=== PATIENT | male | born 1935 | race Caucasian/White ===

== ENCOUNTER 2020-10-16 13:23 | Outpatient (REF) | payer SELFPAY | END 2020-10-16 13:24 | disposition home or self-care (01) | LOC: HO.HAP 13:23 | PROVIDERS: Visit Provider Internal Medicine | DX: Z46.1 Encounter for fitting and adjustment of hearing aid (principal) | CPT/HCPCS: V5267 ==

== ENCOUNTER 2021-04-29 10:11 | Emergency (ER) | payer MEDICARE, OTHER, SELFPAY ==
--- NOTE | ~2021-04-29 | CT_ITS ---
EXAMINATION: CT ABDOMEN AND PELVIS WITH CONTRAST CLINICAL INFORMATION: Colitis COMPARISON: CT abdomen and pelvis 08/01/2020 TECHNIQUE: Multidetector volumetric images were obtained from the superior aspect of the liver through the pubic symphysis following administration 85 mL of Omnipaque 350 intravenous contrast. Sagittal and coronal reformatted images were obtained on the technologist's workstation. Oral contrast: No This CT examination was performed using dose optimization techniques as appropriate, variously including the following: *Automated exposure control *Adjustment of mA and/or kV according to patient size (this includes techniques or standardized protocols for targeted exams where dose is matched to indication/reason for exam; i.e. extremities or head) *Use of iterative reconstruction technique DLP: 761 mGy-cm FINDINGS: LUNG BASES: Minimal atelectatic changes as seen in the lateral basal segments of both lower lobes. The heart size is normal. There are coronary artery calcifications present. LIVER, GALLBLADDER, AND BILIARY TREE: The liver is normal in size, shape, and attenuation. No focal hepatic lesion or biliary ductal dilatation is present. The gallbladder is unremarkable with no evidence of radiopaque gallstones, gallbladder wall thickening, or obvious pericholecystic inflammatory changes. PANCREAS: Unremarkable. SPLEEN: Unremarkable. ADRENAL GLANDS: Unremarkable. KIDNEYS AND URETERS: The kidneys are normal in size, shape, and attenuation. No hydronephrosis, hydroureter, or calculi seen. There is mild bilateral perinephric stranding there are bilateral cortical renal cysts. The largest in lower pole measures 1.9 cm. There is an extrarenal right kidney pelvis. BLADDER: Unremarkable. GASTROINTESTINAL TRACT: There is diffuse colonic diverticulosis most prominent in the sigmoid colon region. There is mild mural thickening of the sigmoid and descending colon but no pericolic fat stranding seen to suspect diverticulitis. Mural thickening of the ascending colon could be secondary to nonspecific colitis. The small bowel loops are normal caliber. The appendix is normal caliber. There is a calcified tablet in the cecal region. ABDOMINAL WALL: No significant hernia is appreciated. LYMPH NODES: Normal. VASCULAR: There is absence] calcification of abdominal aorta and its branches without aneurysmal dilatation. PELVIC VISCERA: Unremarkable. OSSEOUS STRUCTURES: No lytic or sclerotic process seen. There is mild degenerative disc changes and vacuum disc phenomena L3-L4 disc level. Mild facet arthropathy noted at L4-L5 and L5-S1 disc levels. The bilateral hip prosthesis. CT/CT abdomen pelvis w con IMPRESSION: Diffuse sigmoid diverticulosis without diverticulitis. Minimal scattered diverticuli are seen in the rest of the colon. Mild mural thickening involving the ascending colon likely nonspecific colitis. Normal appendix. Bilateral renal cysts. No radiopaque urolith or hydroureteronephrosis.
[2021-04-29 10:43] VITALS: BP 130/64; PULSE 83; RESP 16; TEMP 37.2; O2SAT 95; BMI 28.8
[2021-04-29] MEDS: 0.9 % Sodium Chloride 1,000 ML 999 ML IV (11:39)
--- NOTE | 2021-04-29 11:40 | ED_ITS ---
HPI - Nausea/Vomiting/Diarrhea General Chief complaint: Nausea/Vomiting/Diarrhea Stated complaint: SEVERE DIARRHEA Time Seen by Provider: 04/29/21 11:08 Source: patient Mode of arrival: ambulatory Limitations: no limitations History of Present Illness HPI Narrative: Patient presents to ED for diarrhea since Friday. Patient denies any abdominal pain, blood in stool, black stool, fever, or chills. Patient denies any new antibiotics. Patient denies any recent hospital admission. Patient states vaccinated against COVID. Associated nausea: No Related Data Home Medications Medication Instructions Recorded Confirmed alprazolam 0.25 mg tablet 0.25 mg PO BID 11/14/20 03/02/21 aspirin 325 mg tablet 325 mg PO DAILY 11/14/20 03/02/21 calcium carbonate-vitamin D3 600 cap PO 11/14/20 03/02/21 mg calcium-200 unit capsule metoprolol succinate 100 mg 100 mg PO DAILY 11/14/20 03/02/21 tablet,extended release 24 hr omega-3 fatty acids 1,000 mg 1,000 mg PO DAILY 11/14/20 03/02/21 capsule blood sugar diagnostic #10 ea 02/06/21 03/02/21 Previous Rx's Medication Instructions Recorded lisinopril 40 mg tablet 40 mg PO DAILY #90 tab 09/26/20 omeprazole 20 mg capsule,delayed 20 mg PO DAILY #90 cap 09/26/20 release nitroglycerin 0.4 mg sublingual 0.4 mg SUBLINGUAL Q5M PRN #25 tab 11/14/20 tablet metformin 500 mg tablet 1,000 mg PO BID #360 tab 11/23/20 felodipine 10 mg tablet,extended 10 mg PO DAILY #90 tab 02/02/21 release 24 hr blood sugar diagnostic #100 ea 02/06/21 rosuvastatin 20 mg tablet 20 mg PO DAILY #90 tab 02/22/21 isosorbide mononitrate 30 mg 30 mg PO DAILY #90 tab 03/07/21 tablet,extended release 24 hr hydrochlorothiazide 25 mg tablet 25 mg PO DAILY #90 tab 04/10/21 ciprofloxacin HCl 500 mg PO Q12H 7 Days #14 tab 04/29/21 metronidazole 500 mg PO Q12H 7 Days #14 tab 04/29/21 Allergies Allergy/AdvReac Type Severity Reaction Status Date / Time Sulfa (Sulfonamide Allergy Unknown general Verified 04/29/21 10:50 Antibiotics) sickness Review of Systems Review of Systems: Yes all other systems are reviewed and are negative Constitutional: Constitutional: Reports as per HPI and Reports no additional constitutional complaints Eyes: Eyes: Reports as per HPI and Reports no additional eye complaints ENT: Reports system reviewed and no additional complaints, except as documented and Reports as per HPI Cardiovascular: Cardiovascular: Reports as per HPI and Reports no additional cardiovascular complaints Respiratory: Respiratory: Reports as per HPI and Reports no additional respiratory complaints Gastrointestinal: Gastrointestinal: Reports as per HPI, Reports no additional gastrointestinal complaints, Denies abdominal pain, Denies melena, Denies bloating, Denies constipation, Denies GI cramping, Denies dyspepsia, Reports diarrhea and Denies nausea Genitourinary: Genitourinary: Reports no additional male genitourinary complaints and Reports as per HPI Musculoskeletal: Musculoskeletal: Reports no additional musculoskeletal complaints and Reports as per HPI Neurologic: Reports system reviewed and no additional complaints, except as d ocumented and Reports as per HPI Psychiatric: Psychiatric: Reports no additional psychiatric complaints and Reports as per HPI [facility] Past Medical History Medical History (Updated 04/29/21 @ 16:01 by SHELL Shetty) Anxiety and depression Atrial fibrillation Coronary artery disease Diabetic nephropathy GERD (gastroesophageal reflux disease) Hypercholesterolemia Hypertension Polymyalgia rheumatica Type 2 diabetes mellitus with hyperglycemia Social History Social History (Updated 03/02/21 @ 11:27 by Kaylene Self CMA) Alcohol intake: former Patient Tobacco Use Status: Never used Tobacco Use of substances other than those prescribed or required for medical reasons: No Advance Directives: Yes Advance Directives Information Provided: Yes Advance Directives on File: No Physical Exam Vital Signs: Vital Signs: Last Vital Signs Temp 98.6 F 04/29/21 14:10 Pulse 72 04/29/21 14:10 Resp 16 04/29/21 14:10 BP 138/60 04/29/21 14:10 Pulse Ox 96 04/29/21 14:10 Body Mass Index 28.8 Const: General: cooperative, healthy appearing, comfortable, no acute distress, well developed, alert, awake and Physically active Orientation/consciousness: patient oriented x3 HENMT: Head: Yes normal to inspection, Yes No palpable skull fracture present, Yes normocephalic and Yes atraumatic Eyes: General: appearance normal, both eyes and all related structures Neck: Neck: Yes normal visual inspection, Yes full ROM, Yes no lymphadenopathy, Yes no meningeal signs, Yes trachea midline, Yes supple and No tender Chest: Chest palpation & inspection: normal inspection of the chest and normal palpation of entire chest wall Resp: Effort & Inspection: normal respiratory effort and able to speak in complete sentences Auscultation: clear to auscultation bilaterally Cardio: Jugular venous distension: no JVD Heart sounds: S1 normal heart so und present and S2 normal heart sound present GI: Inspection: Yes normal to inspection, No abdominal wall ecchymosis, No Abdominal wall edema and No distended Palpation (GI): Soft to palpation, not firm, nontender, no guarding and not rigid : General: No CVA tenderness and Yes no CVA tenderness Back/Spine/Pelvis: Back: no CVA tenderness, No CVA tenderness and No back tenderness Skin: General skin exam: no rashes or lesions noted and elasticity normal Neuro: General: patient oriented x3, no meningeal signs and CN's II-XI intact bilaterally Cranial nerves: Yes CN's II-XII intact bilaterally Extrem: General: Yes normal to inspection and Yes full ROM Psych: Appearance: grossly normal, well kempt and not disheveled Course Course Course Narrative: Patient will have labs drawn. Fluids ordered. C diff stool sample ordered. Reevaluation(s) Reevaluation #1: Patient labs do not show any dehydration. Patient has normal kidney function normal electrolytes. Negative elevated white blood cell count. COVID swab came back negative. Will send C diff stool sample. Was sent for CT scan although no abdominal pain to be for colitis. Reevaluation #2: CT scan shows colitis. C diff came back negative stool leukocytes came back negative. Patient blood pressure normotensive. Patient is safe for discharge MDM - Nausea/Vomiting/Diarrhea MDM Narrative Medical decision making narrative: Colitis Lab Data Result diagrams: 04/29/21 11:39 04/29/21 11:39 Labs: Lab Results 04/29/21 04/29/21 04/29/21 Range/Units 11:39 11:39 11:39 WBC 5.4 (4.8-10.8) X10*3/uL RBC 4.65 (4.60-5.80) X10*6/uL Hgb 14.2 (14.0-18.0) g/dl Hct 41.4 L (42-52) % MCV 89.0 (80-98) fL MCH 30.5 (27.0-33.0) pg MCHC 34.3 (31.0-36.0) g/dl RDW 12.9 (11.0-16.0) % Plt Count 143 L (160-400) X10*3/uL MPV 9.0 L (9.4-12.4) fL Immature Gran % (Auto) 0.2 (0.0-0.4) % Neut % (Auto) 78.9 H (45-73) % Lymph % (Auto) 14.2 L (20-40) % [place] % (Auto) 6.1 (2-11) % Eos % (Auto) 0.2 (0-4) % Baso % (Auto) 0.4 (0-2) % Lymph # (Auto) 0.8 L (1.2-4.9) X10*3/uL [place] # (Auto) 0.3 (0.1-1.2) X10*3/uL Eos # (Auto) 0.0 (0.0-0.4) X10*3/uL Baso # (Auto) 0.0 (0.0-0.2) X10*3/uL Abs Immat Gran (auto) 0.01 (0.00-0.03) X10*3/uL Absolute Neuts (auto) 4.3 (2.0-8.3) X10*3/uL Absolute Nucleated RBC 0.000 (0.0-0.012) X10*3/uL Nucleated RBC % (auto) 0.0 (0.0-0.2) /100WBC PT (10.8-13.0) SEC INR (0.9-1.1) APTT (24.1-38.0) SEC Sodium 136 (135-145) mmol/L Potassium 4.5 (3.3-5.1) mmol/L Chloride 101 (96-108) mmol/L Carbon Dioxide 22 (22-29) mmol/L Anion Gap 18 (12-20) BUN 22 H (9-16) mg/dL Creatinine 1.06 (0.5-1.4) mg/dL Estim Creat Clear Calc 56.3 Estimated GFR > 60 Random Glucose 164 H (60-115) mg/dL Calcium 8.4 (8.4-10.2) mg/dL Total Bilirubin 0.8 (0.0-1.0) mg/dL Direct Bilirubin 0.3 (0.0-0.5) mg/dL AST 25 (5-37) U/L ALT 16 (0-40) U/L Alkaline Phosphatase 59 (39-117) U/L Total Protein 6.6 (6.5-8.0) g/dL Albumin 3.8 (3.5-5.0) g/dL Lipase 22 (8-78) U/L Stool Leukocytes, Qual (NEGATIVE) C. difficile Toxin A&B (Negative) C. difficile Antigen (Negative) C. difficile Interpret COVID-19 (NINO) Negative (Negative) COVID-19 Clin Com See Note 04/29/21 04/29/21 04/29/21 Range/Units 12:35 13:18 13:18 WBC (4.8-10.8) X10*3/uL RBC (4.60-5.80) X10*6/uL Hgb (14.0-18.0) g/dl Hct (42-52) % MCV (80-98) fL MCH (27.0-33.0) pg MCHC (31.0-36.0) g/dl RDW (11.0-16.0) % Plt Count (160-400) X10*3/uL MPV (9.4-12.4) fL Immature Gran % (Auto) (0.0-0.4) % Neut % (Auto) (45-73) % Lymph % (Auto) (20-40) % [place] % (Auto) (2-11) % Eos % (Auto) (0-4) % Baso % (Auto) (0-2) % Lymph # (Auto) (1.2-4.9) X10*3/uL [place] # (Auto) (0.1-1.2) X10*3/uL Eos # (Auto) (0.0-0.4) X10*3/uL Baso # (Auto) (0.0-0.2) X10*3/uL Abs Immat Gran (auto) (0.00-0.03) X10*3/uL Absolute Neuts (auto) (2.0-8.3) X10*3/uL Absolute Nucleated RBC (0.0-0.012) X10*3/uL Nucleated RBC % (auto) (0.0-0.2) /100WBC PT 13.3 H (10.8-13.0) SEC INR 1.1 (0.9-1.1) APTT 31.2 (24.1-38.0) SEC Sodium (135-145) mmol/L Potassium (3.3-5.1) mmol/L Chloride (96-108) mmol/L Carbon Dioxide (22-29) mmol/L Anion Gap (12-20) BUN (9-16) mg/dL Creatinine (0.5-1.4) mg/dL Estim Creat Clear Calc Estimated GFR Random Glucose (60-115) mg/dL Calcium (8.4-10.2) mg/dL Total Bilirubin (0.0-1.0) mg/dL Direct Bilirubin (0.0-0.5) mg/dL AST (5-37) U/L ALT (0-40) U/L Alkaline Phosphatase (39-117) U/L Total Protein (6.5-8.0) g/dL Albumin (3.5-5.0) g/dL Lipase (8-78) U/L Stool Leukocytes, Qual NEGATIVE (NEGATIVE) C. difficile Toxin A&B Negative (Negative) C. difficile Antigen Negative (Negative) C. difficile Interpret SEE NOTE COVID-19 (NINO) (Negative) COVID-19 Clin Com Discharge Plan Discharge Clinical Impression: Colitis Patient Disposition: Home, Self-Care Instructions: Colitis (ED) Additional Instructions: Return to the ED immediately for any abdominal pain, blood in stool, weakness, dizziness, passing out, fever, chills, flank pain, inability to tolerate solid food/liquid, or any other concerning symptoms. Abdominal CT scan shows colitis. Blood work came back normal. Kidney function came back normal. C diff came back negative. White blood cell count came back normal. COVID swab came back negative Prescriptions: New ciprofloxacin HCl 500 mg tablet 500 mg PO Q12H 7 Days Qty: 14 RF: 0 metronidazole 500 mg tablet 500 mg PO Q12H 7 Days Qty: 14 RF: 0 No Action omeprazole 20 mg capsule,delayed release(DR/EC) 20 mg PO DAILY Qty: 90 RF: 3 lisinopril 40 mg tablet 40 mg PO DAILY Qty: 90 RF: 3 metformin 500 mg tablet 1,000 mg PO BID Qty: 360 RF: 3 felodipine 10 mg tablet extended release 24 hr 10 mg PO DAILY Qty: 90 RF: 3 (DME) blood sugar diagnostic Strip See Rx Instructions .ROUTE .MEDSUPPLY Qty: 10 RF: 0 (DME) OneTouch Ultra Blue Test Strip Strip See Rx Instructions .ROUTE .MEDSUPPLY Qty: 100 RF: 3 rosuvastatin 20 mg tablet 20 mg PO DAILY Qty: 90 RF: 2 isosorbide mononitrate 30 mg tablet extended release 24 hr 30 mg PO DAILY Qty: 90 RF: 3 hydrochlorothiazide 25 mg tablet 25 mg PO DAILY Qty: 90 RF: 1 alprazolam 0.25 mg tablet 0.25 mg PO BID RF: 0 aspirin 325 mg tablet 325 mg PO DAILY RF: 0 omega-3 fatty acids 1,000 mg capsule 1,000 mg PO DAILY RF: 0 Calcium 600 + D(3) 600 mg calcium- 200 unit capsule PO RF: 0 metoprolol succinate 100 mg tablet extended release 24 hr 100 mg PO DAILY RF: 0 nitroglycerin [Nitrostat] 0.4 mg tablet, sublingual 0.4 mg sublingual Q5M PRN (Reason: chest pain) Qty: 25 RF: 0 Referrals: Po,Jesse Ortiz MD [Primary Care Provider] - 2 days (CT scan shows colitis.) Interventions: ED Discharge Assessment Last Done: 04/29/21 16:31 Discharge Date/Time: 04/29/21 16:31
[2021-04-29 11:47] LABS: MANUAL DIFF FLAG NO
[2021-04-29 11:49] LABS: Basophils Percent Auto 0.4 % (0-2); Eosinophils Percent Auto 0.2 % (0-4); Hematocrit 41.4 % (42-52); Hemoglobin 14.2 g/dl (14.0-18.0); Imm Gran Abs Auto 0.01 X10*3/uL (0.00-0.03); Imm Gran Pct Auto 0.2 % (0.0-0.4); Lymphocytes Absolute Auto 0.8 X10*3/uL (1.2-4.9); Lymphocytes Percent Auto 14.2 % (20-40); Mean Corpuscular HGB Conc 34.3 g/dl (31.0-36.0); Mean Corpuscular Hemoglobin 30.5 pg (27.0-33.0); Monocytes Absolute Auto 0.3 X10*3/uL (0.1-1.2); Monocytes Percent Auto 6.1 % (2-11); Neutrophils Absolute Auto 4.3 X10*3/uL (2.0-8.3); Neutrophils Percent Auto 78.9 % (45-73); Platelet Count 143 X10*3/uL (160-400); Red Blood Count 4.65 X10*6/uL (4.60-5.80); Red Cell Distribution Width 12.9 % (11.0-16.0); White Blood Count 5.4 X10*3/uL (4.8-10.8)
[2021-04-29 12:02] LABS: COVID-19 Test Negative (Negative)
[2021-04-29 12:21] LABS: Alanine Aminotransferase 16 U/L (0-40); Albumin Level 3.8 g/dL (3.5-5.0); Alkaline Phosphatase 59 U/L (39-117); Anion Gap 18 (12-20); Aspartate Amino Transferase 25 U/L (5-37); Bilirubin Direct 0.3 mg/dL (0.0-0.5); Bilirubin Total 0.8 mg/dL (0.0-1.0); Blood Urea Nitrogen 22 mg/dL (9-16); Calcium 8.4 mg/dL (8.4-10.2); Carbon Dioxide 22 mmol/L (22-29); Chloride 101 mmol/L (96-108); Creatinine Clr Calc Pharmacy 56.3; Estimated Glomerular Filt Rate > 60; Glucose Random 164 mg/dL (60-115); Lipase 22 U/L (8-78); Potassium 4.5 mmol/L (3.3-5.1); Sodium 136 mmol/L (135-145); Total Protein 6.6 g/dL (6.5-8.0)
[2021-04-29 12:49] LABS: INTERNATIONAL NORM RATIO 1.1 (0.9-1.1); Prothrombin Time 13.3 SEC (10.8-13.0)
[2021-04-29 12:51] LABS: Partial Thromboplastin Time 31.2 SEC (24.1-38.0)
[2021-04-29] MEDS: iohexoL 350 MG/ML 100 ML INFUS..BTL IV (14:09)
[2021-04-29 14:10] VITALS: BP 138/60; PULSE 72; RESP 16; TEMP 37; O2SAT 96
[2021-04-29 14:30] LABS: Leukocytes Stool Qualitative NEGATIVE (NEGATIVE)
[2021-04-29 14:46] LABS: CDIFF Ag Negative (Negative); CDIFF Internal ctrl Dots and bkg OK (V); CDiff Toxin Negative (Negative)
== END 2021-04-29 16:31 | disposition home or self-care (01) ==
PROVIDERS: Physician Assistant; Emergency Provider Emergency Medicine Emergency Medical Services; PCP Internal Medicine
DX: K52.9 Noninfective gastroenteritis and colitis, unspecified (principal); Z20.822 Contact with and (suspected) exposure to COVID-19; I48.91 Unspecified atrial fibrillation; E11.9 Type 2 diabetes mellitus without complications; K21.9 Gastro-esophageal reflux disease without esophagitis; E78.00 Pure hypercholesterolemia, unspecified; I10 Essential (primary) hypertension; Z79.82 Long term (current) use of aspirin; Z79.899 Other long term (current) drug therapy; Z79.84 Long term (current) use of oral hypoglycemic drugs; Z79.02 Long term (current) use of antithrombotics/antiplatelets
CPT/HCPCS: 36415; 74177; 80053; 80076; 82248; 83690; 85025; 85610; 85730; 87045; 87046; 87186; 87324; 87449; 87635; 89055; 96360; 99284; Q9967

== ENCOUNTER 2021-07-19 12:33 | Outpatient (REF) | payer MEDICARE, OTHER, SELFPAY ==
--- NOTE | 2021-07-19 14:19 | MHC.AU.AHA ---
Adult Audiological Evaluation Date of Visit: 07/19/21 Reason for Appointment: Long-standing history of hearing loss. Patient arrives to determine if there has been a change in hearing. Patient reports his PCP recently cleaned his ears. Previous Hearing Test Results: At this clinic on 06/22/2018- Normal sloping to severe sensorineural hearing loss bilaterally Ear History: Recent Ear Drainage: None Reported Recent Ear Pain: None Reported Recent Ear Infections: None Reported Medical History: Medical History: Diabetes, Heart Problems, High Blood Pressure Hearing Instrument History- Right Ear: Lacquer Shader: Phonak Model: Ruzuku V50-P Serial Number: [id number] Battery Size: 13 Warranty: Dispensed By: [facility] Date of Fittin03/19/2016 Hearing Instrument History- Left Ear: Lacquer Shader: Phonak Model: Ruzuku V50-P Serial Number: [id number] Battery Size: 13 Warranty: Dispensed By: [facility] Date of Fittin03/19/2016 Otoscopy: Right Ear: No cerumen. Narrow canals Left Ear: No cerumen. Narrow canals Tympanometry: Tympanometry performed due to: To assess integrity of the middle ear system Right Ear: Normal Middle Ear System (Type A) Left Ear: Normal Middle Ear System (Type A) Hearing Evaluation: Transducer(s) Used: Insert Earphones Method: Conventional Audiometry Stimuli Used: Pure Tones Right Ear: Description of Hearing: Mild to severe sensorineural hearing loss Left Ear: Description of Hearing: Mild to severe sensorineural hearing loss Speech Recognition Threshold (SRT): Method Used: Recorded Lists Stimuli Used: Spondee Words Right Ear: 60 dBHL Left Ear: 60 dBHL Word Discrimination: Method: Recorded Lists Word Lists Used: W-22 Right Ear: 64% at 85 dBHL Left Ear: 68% at 80 dBHL Most Comfortable Level (MCL): Right Ear: 85 dBHL Left Ear: 80 dBHL Aided Testing: Aided word discrimination in soundfield performed at 50 dBHL: 92% in quiet, 88% in noise (+10 SNR) Comparison: Compared to most recent evaluation: Low frequency thresholds have decreased Recommendations: Audiological re-evaluation in one year. Patient is interested in new amplification. See separate hearing aid evaluation report for details. Diagnosis: Primary Diagnosis: H90.3 Bilateral Sensorineural Hearing Loss Signature: Provider: Tavo Farley, [facility]
== END 2021-07-19 12:34 | disposition home or self-care (01) ==
LOC: HO.SH 12:33
PROVIDERS: Visit Provider Internal Medicine
DX: H90.3 Sensorineural hearing loss, bilateral (principal)
CPT/HCPCS: 92557; 92567

== ENCOUNTER 2021-07-19 13:54 | Outpatient (REF) | payer SELFPAY ==
--- NOTE | 2021-07-19 14:30 | MHC.AU.HAS ---
Hearing Aid Evaluation Date of Visit: 07/19/21 Historical Information: Description of Hearing: Mild to severe sensorineural hearing loss Current personal amplification information, if applicable: Pair of Phonak Bolero V50-P, obtained on 03/19/2016 Summary: Patient was seen for audiological re-evaluation (see report for details). Patient is interested in updating his hearing aids. Options were discussed. Patient would like to stay with a style similar to what he currently has. Patient has narrow canals, and will likely need small or cap domes. He would like to avoid custom molds if possible. He would also like to stay with traditional batteries. He has an iPhone and plans to download the Phonak nicci before his next visit. Per business liaison manager, Abigail Vaughan, it is okay to bill the hearing aids to [facility], as patient reported significant difficulty getting reimbursement from his insurance in 2016. Hearing Aid Prescription: Based on the individual?s shared listening needs, communication environments, dexterity, desire for connectivity, and personal preferences, the following prescription for amplification has been made: Right ear: Rug Dyer Helper: Phonak Model: Audeo P50-13T Battery Size: 13 Color: Black Boiler Operator Helper: 1M Left ear: Left ear prescription to be same as Right Hearing Aid above: Rug Dyer Helper: Phonak Model: Audeo P50-13T Battery Size: 13 Color: Black Boiler Operator Helper: 1M Action Taken/Action Needed: Medical Clearance to be requested from PCP/ENT Hearing Instrument Fitting to be scheduled when materials arrive Paid $350 deposit. Will pay balance (what is not covered by [facility]) at the fitting. Primary Diagnosis: H90.3 Bilateral Sensorineural Hearing Loss Signature: Provider: Tavo Farley, [facility]
--- NOTE | 2021-07-19 14:32 | MHC.AU.MED ---
Medical Clearance for Hearing Instrumentation Date: 07/19/21 Patient Name: George Del Cid Date of : 1935 Referring Provider: Jesse Chaudhry MD We have seen your patient on 07/19/21 and have determined that they are a candidate for amplification (See accompanying report). Specifically, they would benefit from: Hearing aid use in both ears There is a statute that addresses Medical Evaluation Requirements prior to fitting a patient with a hearing aid. According to [place] statute [facility] CMR:6.03(1), (a) General. Except as provided in 265 CMR 6.03(1)(b), a cement or concrete finishing supervisor shall not sell a hearing aid unless the prospective user has presented to the cement or concrete finishing supervisor a written statement signed by a licensed physician that states that the patient's hearing loss has been medically evaluated and the patient may be considered a candidate for a hearing aid. The medical evaluation must have taken place within the preceding six months. Please note: Due to the [place] Statute referenced above, we cannot accept a signature other than that of a licensed physician. REFINERY OPERATOR ALKYLATION and PA signatures cannot be accepted. I am in agreement with the above recommendation. There is no medical contraindication for hearing instrumentation. Physician Signature Date Physician Name (Printed)
== END 2021-07-19 13:55 | disposition home or self-care (01) ==
LOC: HO.HAP 13:54
PROVIDERS: Visit Provider Internal Medicine
DX: Z46.1 Encounter for fitting and adjustment of hearing aid (principal); H90.3 Sensorineural hearing loss, bilateral
CPT/HCPCS: 92591

== ENCOUNTER 2021-07-27 14:21 | Outpatient (REF) | payer MEDICARE, OTHER, SELFPAY ==
--- NOTE | 2021-08-01 12:38 | MHC.AU.HFA ---
Hearing Instrument Fitting- Adult- Binaural Date of Visit: 07/27/21 Hearing Instruments Dispensed: Right Ear: Underwriting Account Representative: Phonak Model: Audeo P50-13T Serial Number: [id number] Repair Warranty: 10/20/2024 Loss and Damage Warranty: 10/20/2024 Battery Size: 13 Color: Black Sewing Machine Operator Paper Bags: 1M Type of Wax Guard: CeruShield Left Ear: Underwriting Account Representative: Phonak Model: Audeo P50-13T Serial Number: [id number] Repair Warranty: 10/20/2024 Loss and Damage Warranty: 10/20/2024 Battery Size: 13 Color: Black Sewing Machine Operator Paper Bags: 1M Type of Wax Guard: CeruShield Summary of Fitting: Feedback photography manager was run. Verifit performed and levels adjusted to better reach targets. Patient was pleased with the sound of the instruments. The hearing aids were paired to his phone and nicci. Hearing aid care and use were discussed and practiced. Recommendations: Recommendations: Per everett Gaitan to bill to [facility]. Patient previously paid $350 deposit. By patient's calculation of his benefit, he paid the expected $1390.00 balance today. Diagnosis Code(s): Primary Diagnosis: H90.3 Bilateral Sensorineural Hearing Loss Signature: Provider: Tavo Farley, [facility]
== END 2021-07-27 14:22 | disposition home or self-care (01) ==
LOC: HO.HAP 14:21
PROVIDERS: Visit Provider Internal Medicine
DX: Z46.1 Encounter for fitting and adjustment of hearing aid (principal); H90.3 Sensorineural hearing loss, bilateral
CPT/HCPCS: V5261

== ENCOUNTER 2021-08-29 07:33 | Outpatient (REF) | payer MEDICARE, OTHER, SELFPAY ==
[2021-08-29 10:54] LABS: Anion Gap 15 (12-20); Carbon Dioxide 23 mmol/L (22-29); Chloride 104 mmol/L (96-108); Glucose Fasting 167 mg/dL (60-99); Potassium 4.9 mmol/L (3.3-5.1); Sodium 137 mmol/L (135-145)
== END 2021-08-29 07:34 | disposition home or self-care (01) ==
LOC: HO.10HDL 07:33
PROVIDERS: Visit Provider Nurse Practitioner Family
DX: Z01.818 Encounter for other preprocedural examination (principal)
CPT/HCPCS: 36415; 80051; 82947

== ENCOUNTER 2021-09-20 14:35 | Outpatient (REF) | payer SELFPAY | END 2021-09-20 14:36 | disposition home or self-care (01) | LOC: HO.HAP 14:35 | PROVIDERS: Visit Provider Internal Medicine | DX: Z13.89 Encounter for screening for other disorder (principal) ==

== ENCOUNTER 2021-11-27 07:57 | Outpatient (REF) | payer MEDICARE, OTHER, SELFPAY ==
[2021-11-27 10:04] LABS: Basophils Percent Auto 0.7 % (0-2); Eosinophils Absolute Auto 0.3 X10*3/uL (0.0-0.4); Eosinophils Percent Auto 4.1 % (0-4); Hematocrit 40.4 % (42.0-52.0); Hemoglobin 14.1 g/dl (14.0-18.0); Imm Gran Abs Auto 0.03 X10*3/uL (0.00-0.03); Imm Gran Pct Auto 0.5 % (0.0-0.4); Lymphocytes Absolute Auto 1.5 X10*3/uL (1.2-4.9); Lymphocytes Percent Auto 25.2 % (20-40); MANUAL DIFF FLAG NO; Mean Corpuscular HGB Conc 34.9 g/dl (31.0-36.0); Mean Corpuscular Hemoglobin 30.9 pg (27.0-33.0); Mean Corpuscular Volume 88.6 fL (80.0-98.0); Mean Platelet Volume 8.8 fL (9.4-12.4); Monocytes Absolute Auto 0.4 X10*3/uL (0.1-1.2); Monocytes Percent Auto 6.6 % (2-11); Neutrophils Absolute Auto 3.8 x10*3/uL (2.0-8.3); Neutrophils Percent Auto 62.9 % (45-73); Platelet Count 209 X10*3/uL (160-400); Red Blood Count 4.56 X10*6/uL (4.60-5.80); Red Cell Distribution Width 12.2 % (11.0-16.0)
[2021-11-27 10:21] LABS: Estimated Average Glucose 143 mg/dL; Hemoglobin A1c % 6.6 %
[2021-11-27 10:30] LABS: Creatinine Urine 78.94 mg/dL; Microalbum/Creatinine Ratio Ur 421.8 ug/mg cr
[2021-11-27 10:33] LABS: Alanine Aminotransferase 24 U/L (0-40); Albumin Level 4.3 g/dL (3.5-5.0); Alkaline Phosphatase 70 U/L (39-117); Anion Gap 13 (12-20); Aspartate Amino Transferase 23 U/L (5-37); Bilirubin Total 0.6 mg/dL (0.0-1.0); Blood Urea Nitrogen 27 mg/dL (9-16); Calcium 9.6 mg/dL (8.4-10.2); Carbon Dioxide 26 mmol/L (22-29); Chloride 101 mmol/L (96-108); Cholesterol 130 mg/dL; Estimated Glomerular Filt Rate > 60; Glucose Random 158 mg/dL (60-115); HDL Cholesterol 44 mg/dL; LDL Cholesterol Calculated 56 mg/dl; Potassium 4.8 mmol/L (3.3-5.1); Sodium 135 mmol/L (135-145); Triglycerides 153 mg/dL
[2021-11-27 10:55] LABS: Free T4 (Free Thyroxine) 1.01 ng/dL (0.71-1.85); Thyroid Stimulating Hormone 2.97 uIU/mL (0.32-4.0)
[2021-11-27 12:31] LABS: Folate > 20.0 ng/mL (> or = 4.0); Vitamin B12 395 pg/mL (200-900)
== END 2021-11-27 07:58 | disposition home or self-care (01) ==
LOC: HO.10HDL 07:57
PROVIDERS: Visit Provider Internal Medicine
DX: E11.65 Type 2 diabetes mellitus with hyperglycemia (principal); I10 Essential (primary) hypertension; E78.00 Pure hypercholesterolemia, unspecified
CPT/HCPCS: 36415; 80053; 80061; 82043; 82607; 82746; 83036; 84439; 84443; 85025

== ENCOUNTER 2022-03-21 14:37 | Outpatient (REF) | payer SELFPAY | END 2022-03-21 14:38 | disposition home or self-care (01) | LOC: HO.HAP 14:37 | PROVIDERS: Visit Provider Internal Medicine | DX: Z13.89 Encounter for screening for other disorder (principal) ==

== ENCOUNTER 2022-10-10 12:47 | Outpatient (REF) | payer MEDICARE, OTHER, SELFPAY ==
--- NOTE | 2022-10-10 13:42 | MHC.AU.HFU ---
Hearing Instrument Follow-Up- Binaural Date of Visit: 10/10/22 Right Ear: Phonak Audeo P50-13T SN: [id number] Color: Velvet Black Repair Warranty: 10/20/2024 Loss and Damage Warranty: 10/20/2024 Battery Size: 13 Textile Finisher: 1M Type of Mold: Small vented dome Type of Wax Guard: CeruShield Dispensed By: [facility] Date of Fittin07/27/2021 Left Ear: Phonak Audeo P50-13T SN: [id number] Color: Velvet Black Repair Warranty: 10/20/2024 Loss and Damage Warranty: 10/20/2024 Battery Size: 13 Textile Finisher: 1M Type of Mold: Small vented dome Type of Wax Guard: CeruShield Dispensed By: [facility] Date of Fittin07/27/2021 Follow-Up Summary: George returned for routine hearing aid maintenance. His hearing aids were cleaned, microphones were vacuumed, and domes and wax guards were replaced. A listening check demonstrated that the hearing aids are in good working order. George reported that these are the best pair of hearing aids he has used and is greatly satisfied with their overall sound quality, comfort, and bluetooth capabilities. Recommendations: Hearing instrument maintenance in 6 months, or sooner if needed. Please contact our clinic with any questions or concerns. Diagnosis Code(s): Primary Diagnosis: H90.3 Bilateral Sensorineural Hearing Loss Signature: Provider: Ute Díaz, [facility]
== END 2022-10-10 12:48 | disposition home or self-care (01) ==
LOC: HO.SH 12:47
PROVIDERS: Visit Provider Internal Medicine
DX: H90.3 Sensorineural hearing loss, bilateral (principal)
CPT/HCPCS: 92557

== ENCOUNTER 2023-06-10 07:30 | Outpatient (REF) | payer MEDICARE, OTHER, SELFPAY ==
[2023-06-10 08:05] LABS: MANUAL DIFF FLAG NO
[2023-06-10 08:26] LABS: Basophils Percent Auto 0.7 % (0-2); Eosinophils Absolute Auto 0.2 X10*3/uL (0.0-0.4); Eosinophils Percent Auto 3.9 % (0-4); Hematocrit 41.4 % (42.0-52.0); Hemoglobin 14.1 g/dl (14.0-18.0); Imm Gran Abs Auto 0.02 X10*3/uL (0.00-0.03); Imm Gran Pct Auto 0.4 % (0.0-0.4); Lymphocytes Absolute Auto 1.8 X10*3/uL (1.2-4.9); Lymphocytes Percent Auto 31.6 % (20-40); Mean Corpuscular HGB Conc 34.1 g/dl (31.0-36.0); Mean Corpuscular Hemoglobin 30.3 pg (27.0-33.0); Mean Corpuscular Volume 88.8 fL (80.0-98.0); Monocytes Absolute Auto 0.5 X10*3/uL (0.1-1.2); Monocytes Percent Auto 8.3 % (2-11); Neutrophils Absolute Auto 3.1 x10*3/uL (2.0-8.3); Neutrophils Percent Auto 55.1 % (45-73); Platelet Count 185 X10*3/uL (160-400); Red Blood Count 4.66 X10*6/uL (4.60-5.80); Red Cell Distribution Width 12.6 % (11.0-16.0); White Blood Count 5.7 X10*3/uL (4.8-10.8)
[2023-06-10 08:33] LABS: Estimated Average Glucose 137 mg/dL; Hemoglobin A1c % 6.4 %
[2023-06-10 09:14] LABS: Alanine Aminotransferase 17 U/L (0-40); Alkaline Phosphatase 61 U/L (39-117); Anion Gap 15 (12-20); Aspartate Amino Transferase 21 U/L (5-37); Bilirubin Total 0.7 mg/dL (0.0-1.0); Blood Urea Nitrogen 21 mg/dL (9-16); Calcium 9.3 mg/dL (8.4-10.2); Carbon Dioxide 23 mmol/L (22-29); Chloride 102 mmol/L (96-108); Cholesterol 129 mg/dL; Estimated Glomerular Filt Rate > 60; Glucose Random 164 mg/dL (60-115); HDL Cholesterol 44 mg/dL; LDL Cholesterol Calculated 60 mg/dl; Potassium 4.6 mmol/L (3.3-5.1); Sodium 135 mmol/L (135-145); Triglycerides 125 mg/dL
[2023-06-10 09:33] LABS: Thyroid Stimulating Hormone 2.79 uIU/mL (0.32-4.0)
[2023-06-10 09:55] LABS: Creatinine Urine 101.61 mg/dL; Microalbum/Creatinine Ratio Ur 237.1 ug/mg cr
== END 2023-06-10 07:31 | disposition home or self-care (01) ==
LOC: HO.LAB 07:30
PROVIDERS: PCP Internal Medicine; Visit Provider Internal Medicine
DX: E78.00 Pure hypercholesterolemia, unspecified (principal); E11.65 Type 2 diabetes mellitus with hyperglycemia
CPT/HCPCS: 36415; 80053; 80061; 82043; 83036; 84439; 84443; 85025

== ENCOUNTER 2023-06-13 08:40 | Outpatient (AMB) | payer MEDICARE, OTHER, SELFPAY ==
[2023-06-13 08:46] VITALS: BP 152/70; PULSE 74; O2SAT 96; BMI 29.2
--- NOTE | 2023-06-13 08:46 | AM.OFFVISMDC ---
Intake Vital Signs 06/13/23 08:46 Height 5 ft 8 in Weight 192 lb BMI 29.2 BP 152/70 H Blood Pressure Location Lt brachial Position Sitting Pulse 74 Pulse Source Pulse Oximeter Pulse Oximetry (%) 96 Oxygen Delivery Method Room Air Intake Visit Reasons: [id number] Discuss/Bill ACP Allergies Sulfa (Sulfonamide Antibiotics) Allergy (Unknown, Verified 06/13/23 08:47) general sickness Medication List - Last Reconciled 06/13/23 by Jesse hCaudhry MD aspirin 325 mg PO DAILY blood sugar diagnostic ([employer] Ultra Blue Test Strip) As directed check the blood sugars once a day blood sugar diagnostic As directed calcium carbonate-vitamin D3 600 mg-5 mcg (200 unit) (Calcium 600 + D(3)) caps PO felodipine ER 10 mg PO DAILY fluticasone propionate 50 mcg/actuation (Flonase Allergy Relief) 2 sprays intranasal DAILY 30 days hydrochlorothiazide 25 mg PO DAILY isosorbide mononitrate ER 30 mg PO DAILY lisinopril 40 mg PO DAILY metformin 1,000 mg (2 x 500 mg) PO BID metoprolol succinate ER 50 mg PO DAILY nitroglycerin (Nitrostat) 0.4 mg sublingual Q5M PRN omega-3 fatty acids 1,000 mg PO DAILY omeprazole 20 mg PO DAILY rosuvastatin 20 mg PO DAILY HPI [id number] Discuss/Bill ACP HPI Details 87-year-old male with diabetes mellitus coronary artery disease hypertension hypercholesterolemia last seen in August 2022. Patient is here for the annual well visit. Recently treated for congestion of the years in December 2022. PAtient feels anxious [facility] Medical History (Updated 06/13/23 @ 09:28 by Jesse Chaudhry MD) Acute effusion of both middle ears Anxiety and depression Atrial fibrillation Bradycardia by electrocardiogram Bradycardia, drug induced Coronary artery disease Diabetic nephropathy GERD (gastroesophageal reflux disease) Hypercholesterolemia Hypertension Polymyalgia rheumatica Skin cancer of nose Type 2 diabetes mellitus with hyperglycemia Surgical History (Updated 06/11/22 @ 09:35 by Jesse Chaudhry MD) History of bilateral hip arthroplasty History of cataract surgery History of tonsillectomy Left inguinal hernia Social History (Updated 06/06/21 @ 12:07 by Jesse Chaudhry MD) Housing: House Alcohol intake: former Patient Tobacco Use Status: Never used Tobacco e-Cigarette/Vaping Use: Never Used Second Hand Smoke Exposure: No service: Yes Current occupational status: retired Cognitive needs: No Hearing needs: No Vision needs: Yes Questionnaire Medicare Wellness Checkup What is your age?: 82 or older What gender do you identify with?: male During the past 4 weeks, how much have you been bothered by emotional problems such as feeling anxious, depressed, irritable, sad or downhearted, and blue?: not at all During the past 4 weeks, has your physical & emotional health limited your social activities with family, friends, neighbors, or groups?: not at all During the past 4 weeks, how much bodily pain have you generally had?: very mild pain During the past 4 weeks, was someone available to help you if you needed & wanted help?: yes, as much as I wanted During the past 4 weeks, what was the hardest physical activity you could do for at least 2 minutes?: heavy Can you get to places out of walking distance without help? (For eg., can you travel alone on buses, taxis or drive your car?): Yes Can you go shopping for groceries or clothes without someone's help?: Yes Can you prepare your own meals?: Yes Can you do your housework without help?: No Because of any health problems, do you need the help of another person with your personal care needs such as eating, bathing, dressing or getting around the house?: No Can you handle your own money without help?: Yes During the past 4 weeks, how would you rate your health in general?: very good During the past 4 weeks how have things been going for you?: pretty well Are you having difficulties driving your car?: no Do you always fasten your seat belt when you are in a car?: yes, usually During past 4 weeks, have you been bothered by the following: never: Falling or dizzy when standing up, Sexual problems?, Trouble eating well?, Teeth or denture problems?, Problems using the telephone? and Tiredness or fatigue? Have you fallen 2 or more times in the past year?: No Are you afraid of falling?: Yes Are you a smoker?: no During the past 4 weeks, how many drinks of wine, beer, or other alcoholic beverages did you have?: no alcohol at all Do you exercise for about 20 minutes 3 or more times a week?: yes, most of the time Have you been given information to help with the following?: no: Hazards in your house that might hurt you? and no: Keeping track of your medications? How often do you have trouble taking medicines the way you have been told to take them?: I always take medicine as prescribed How confident are you that you can control & manage most of your health problems?: very confident What is your race?: White PHQ-9 Over the last 2 weeks, how often have you been bothered by any of the following problems? 1. Little interest or pleasure in doing things: not at all 2. Feeling down, depressed, or hopeless: not at all 3. Trouble falling or staying asleep, or sleeping too much: not at all 4. Feeling tired or having little energy: not at all 5. Poor appetite or overeating: not at all 6. Feeling bad about yourself - or that you are a failure or have let yourself or your family down: not at all 7. Trouble concentrating on things, such as reading the newspaper or watching television: not at all 8. Moving or speaking so slowly that other people could have noticed. Or the opposite - being so fidgety or restless that you have been moving around a lot more than usual: not at all 9. Thoughts that you would be better off or of hurting yourself in some way: not at all Total score: 0 Depression Screening Interpretation: Negative Source: Developed by Drs. Yaw Arriaga, Jelena Eric, Seth Jaime and colleagues, with an educational lesley from [employer]. Review of Systems Const Denies poor appetite and Denies weakness Eyes Denies no additional complaints ENT Reports Normal hearing present, Denies dizziness, Denies nasal congestion, Denies tinnitus and Denies sore throat Card Denies chest pain, Denies syncope, Denies rapid heart rate and Denies dyspnea Resp Denies cough and Denies dyspnea GI Denies change in stool character, Reports constipation, Denies diarrhea, Denies nausea and Denies vomiting Denies dysuria and Denies urinary frequency Neuro Reports Normal hearing present, Denies confusion, Denies dizziness, Denies syncope and Denies weakness Psych Denies confusion Physical Exam Vital Signs: Last Vital Signs Pulse 74 06/13/23 08:46 BP 152/70 H 06/13/23 08:46 Pulse Ox 96 06/13/23 08:46 Oxygen Delivery Method Room Air 06/13/23 08:46 BMI result Body Mass Index 29.2 Const General: No confusion Orientation/consciousness: No confusion HEENT Head: Yes normocephalic Ears: external ears normal and TM's normal bilaterally Face and sinus: Yes normal facial exam Mouth: moist mucous membranes Throat: Yes tonsils normal Eyes Conjunctivae: conjunctivae normal Pupils: Equal, round and reactive pupils present and Pupil accommodation reflex normal Direct Ophthalmoscopy: normal light reflex Neck Neck: No lymphadenopathy Thyroid: Thyroid normal Chest Chest palpation & inspection: normal inspection of the chest Resp Effort & Inspection: normal respiratory effort and no audible wheezes Auscultation: clear to auscultation bilaterally, no crackles, no wheezes and lung sounds not diminished Cardio Rate: regular rate Rhythm: regular rhythm Peripheral pulses: radial pulses present and dorsalis pedis present GI Other: guaiac negative, prostate N Palpation (GI): no masses Auscultation: normal bowel sounds and normoactive bowel sounds Rectal Exam - Male: Yes deferred Male General Exam: Yes normal external exam Skin General skin exam: no rashes or lesions noted Rashes: no rashes Neuro General: No confusion Cranial nerves: Yes Equal, round and reactive pupils present and Yes Normal hearing present Cognition (Neuro): normal cognition Gait exam (Neuro): Normal gait present Motor exam (neuro): 5/5 motor strength present throughout Deep tendon reflexes (DTR's): Right brachioradialis reflex intensity grade: 2+, Left brachioradialis reflex intensity grade: 2+, Right patellar reflex intensity grade: 2+ and Left patellar reflex intensity grade: 2+ Extrem Other: pedal pulse good, pin prick sensory problem with big toe General: No edema Assessment & Plan Assessment & Plan (1) Encounter for subsequent annual wellness visit (AWV) in Medicare patient: Code(s): Z00.00 - Encounter for general adult medical examination without abnormal findings (2) Type 2 diabetes mellitus with hyperglycemia: Comment: eye Dr. Adam Madera Code(s): E11.65 - Type 2 diabetes mellitus with hyperglycemia Qualifiers: Diabetes mellitus joint terminal attack controller insulin use: without joint terminal attack controller use Qualified Code(s): E11.65 - Type 2 diabetes mellitus with hyperglycemia Plan: Decrease the amount of carbohydrate intake, pasta, bread, rice and potatoes are all sugar and that is aside from all the sweet stuff, remember that fruits are good but they are Sweet also. Hemoglobin A1c goal of less than 7.0 (3) Hypercholesterolemia: Code(s): E78.00 - Pure hypercholesterolemia, unspecified Plan: Avoid fried foods, chicken skin, eggs, butter margarine, pastries and meat. Be it pork or beef they have a lot of cholesterol LDL goal of less than 70 and triglyceride of less than 1 for patient is on rosuvastatin 20 mg once a day (4) GERD (gastroesophageal reflux disease): Code(s): K21.9 - Gastro-esophageal reflux disease without esophagitis Qualifiers: Esophagitis presence: without esophagitis Qualified Code(s): K21.9 - Gastro-esophageal reflux disease without esophagitis Plan: Avoid the foods that causes that usually spicy foods, tomato products, juices, coffee, soda and foods that your sensitive to. After eating do not lie down, allow 3-4 hours before in lie down. And keep the head of bed above 30 degrees to avoid the acid from going up. (5) Hypertension: Code(s): I10 - Essential (primary) hypertension Qualifiers: Hypertension type: essential hypertension Qualified Code(s): I10 - Essential (primary) hypertension Plan: Continue with blood pressure medication. Decrease salt intake and exercise patient takes metoprolol 50 mg once a day lisinopril 40 mg once a day hydrochlorothiazide 25 mg once a day and felodipine 10 mg once a day (6) Coronary artery disease: Comment: RCA stent 2007 [place] of LAD March 2015 partial dissection of LAD post procedure Code(s): I25.10 - Atherosclerotic heart disease of [place] coronary artery without angina pectoris Qualifiers: Coronary Disease-Associated Artery/Lesion type: [place] artery [place] vs. transplanted heart: [place] heart Associated angina: without angina Qualified Code(s): I25.10 - Atherosclerotic heart disease of [place] coronary artery without angina pectoris Plan: Control the cholesterol, weight, blood pressure, diabetes (7) Polymyalgia rheumatica: Code(s): M35.3 - Polymyalgia rheumatica Plan: Stable (8) Generalized anxiety disorder: Code(s): F41.1 - Generalized anxiety disorder (9) Onychomycosis: Code(s): B35.1 - Tinea unguium Plan: not ready for treatment Medications: New alprazolam 0.25 mg PO DAILY PRN 14 tabs 0RF anxiety F41.1 - Generalized anxiety disorder Quality Reporting (2019) Depression/Bipolar (159/160/161/177) PHQ-9: Total score: 0 Coding Level of Care Code Medicare Subsequent (G0439) Diagnoses Encounter for subsequent annual wellness visit (AWV) in Medicare patient Z00.00 Type 2 diabetes mellitus with hyperglycemia E11.65 Diabetes mellitus joint terminal attack controller insulin use: without snf use Hypercholesterolemia E78.00 GERD (gastroesophageal reflux disease) K21.9 Esophagitis presence: without esophagitis Hypertension I10 Hypertension type: essential hypertension Coronary artery disease I25.10 Coronary Disease-Associated Artery/Lesion type: [place] artery [place] vs. transplanted heart: [place] heart Associated angina: without angina Polymyalgia rheumatica M35.3 Generalized anxiety disorder F41.1 Onychomycosis B35.1 Additional Codes PHQ-9 - 77187 - PHQ-9 Billing: Y ([id number])
== END 2023-06-13 09:45 | disposition home or self-care (01) ==
PROVIDERS: Visit Provider Internal Medicine
DX: Z00.00 Encounter for general adult medical examination without abnormal findings (principal); E11.65 Type 2 diabetes mellitus with hyperglycemia; K21.9 Gastro-esophageal reflux disease without esophagitis; I10 Essential (primary) hypertension; M35.3 Polymyalgia rheumatica; E78.00 Pure hypercholesterolemia, unspecified; I25.10 Atherosclerotic heart disease of native coronary artery without angina pectoris; F41.1 Generalized anxiety disorder; B35.1 Tinea unguium
CPT/HCPCS: G0439

== ENCOUNTER 2023-09-11 08:43 | Outpatient (AMB) | payer MEDICARE, OTHER, SELFPAY ==
--- NOTE | 2023-09-11 08:44 | MHC.PC.OV ---
Intake Visit Reasons: HDF -08/30 from [facility] Intake Note: Patient is feeling nausous and weak. Allergies Sulfa (Sulfonamide Antibiotics) Allergy (Unknown, Verified 09/11/23 09:04) general sickness Medication List - Last Reconciled 09/11/23 by POOJA Markham alprazolam 0.25 mg PO DAILY PRN apixaban (Eliquis) 5 mg PO BID blood sugar diagnostic ([employer] Ultra Blue Test Strip) As directed check the blood sugars once a day blood sugar diagnostic As directed calcium carbonate-vitamin D3 600 mg-5 mcg (200 unit) (Calcium 600 + D(3)) caps PO clopidogrel (Plavix) 75 mg PO DAILY felodipine ER 10 mg PO DAILY fluticasone propionate 50 mcg/actuation (Flonase Allergy Relief) 2 sprays intranasal DAILY 30 days hydrochlorothiazide 25 mg PO DAILY isosorbide mononitrate ER 60 mg PO DAILY lisinopril 40 mg PO DAILY metformin 1,000 mg (2 x 500 mg) PO BID metoprolol succinate ER 50 mg PO DAILY nitroglycerin (Nitrostat) 0.4 mg sublingual Q5M PRN omega-3 fatty acids 1,000 mg PO DAILY rosuvastatin 20 mg PO DAILY Tobacco use date assessed: 09/11/23 Fall risk assessment: No Falls in past year Last assessed Fall Risk: 09/11/23 Dental Screening Dental Screen Date: 09/11/23 Did you have a dental visit in the last 12 months?: Yes Did you have a dental problem in the last 6 months where you did not have access to dental care?: No Was dental information given to patient?: Patient has dentist HPI HPI Comments History of Present Illness Details [age] year old male past medical history significant for CAD, hypertension, anxiety depression, GERd, polymyalgia rheumatica and type [address] Chaudhry, patient presents today for a telehealth appointment for hospital discharge follow-up. Patient was seen at [facility] on 08/28/23 for left-sided chest pressure while walking with mild shortness of breath, patient reported did take nitro at home with relief. Patient was found to be hypertensive 170s, EKG showed normal sinus rhythm, no ST elevations or depressions CBC unremarkable BNP showed mildly elevated BUN of 24. Chest x-ray unremarkable. Troponins elevated 22, 23. Patient underwent a cardiac catheterization on 08/29/2023 which revealed multiple heavily calcified stenosis, no PCI completed and medical management was recommended with Eliquis 5 mg b.i.d. and Plavix 75 mg daily. Patient reports his omeprazole was discontinued due to interaction with Plavix. Patient has upcoming follow-up with Cardiology on 08/18/2023. Patient reports that he is having worsening symptoms of reflux since his omeprazole was discontinued. Denies reoccur recurrence of chest pain or pressure patient does report poor appetite, lack of energy and diarrhea x2. Patient denies any recent sick contacts. His nausea, vomiting, fever, chills. Amended blood work however patient reports he just recently got repeat labs completed at [facility]. Will request results of these. [facility] Medical History (Updated 06/13/23 @ 09:28 by Jesse Chaudhry MD) Acute effusion of both middle ears Skin cancer of nose Bradycardia, drug induced Bradycardia by electrocardiogram Atrial fibrillation Type 2 diabetes mellitus with hyperglycemia Diabetic nephropathy Hypercholesterolemia GERD (gastroesophageal reflux disease) Anxiety and depression Polymyalgia rheumatica Hypertension Coronary artery disease Surgical History (Updated 06/11/22 @ 09:35 by Jesse Chaudhry MD) History of cataract surgery History of tonsillectomy History of bilateral hip arthroplasty Left inguinal hernia Social History (Updated 06/06/21 @ 12:07 by Jesse Chaudhry MD) Housing: House Alcohol intake: former Patient Tobacco Use Status: Never used Tobacco e-Cigarette/Vaping Use: Never Used Second Hand Smoke Exposure: No service: Yes Current occupational status: retired Cognitive needs: No Hearing needs: No Vision needs: Yes Questionnaire PHQ-9 Over the last 2 weeks, how often have you been bothered by any of the following problems? 1. Little interest or pleasure in doing things: not at all 2. Feeling down, depressed, or hopeless: not at all 3. Trouble falling or staying asleep, or sleeping too much: not at all 4. Feeling tired or having little energy: not at all 5. Poor appetite or overeating: not at all 6. Feeling bad about yourself - or that you are a failure or have let yourself or your family down: not at all 7. Trouble concentrating on things, such as reading the newspaper or watching television: not at all 8. Moving or speaking so slowly that other people could have noticed. Or the opposite - being so fidgety or restless that you have been moving around a lot more than usual: not at all 9. Thoughts that you would be better off or of hurting yourself in some way: not at all Total score: 0 Depression Screening Interpretation: Negative Depression Screening Done: Yes Source: Developed by Drs. Yaw Arriaga, Jelena Eric, Seth Jaime and colleagues, with an educational lesley from [employer]. Thrive Questionnaire Date Thrive assessed: 09/11/23 I am a: Patient What is your living situation today?: I have a steady place to live Within the past 12 months, did the food you bought not last and you didn't have the money to get more?: Never true Within the past 12 months, did you worry whether your food would run out before you got money to buy more?: Never true Do you have trouble paying for medicines?: No Do you have trouble getting transportation to medical appointments?: No Do you have trouble paying your heating and electricity bill?: No Do you have trouble taking care of your child, family member or friend?: No Do you have trouble with day-to-day activities such as bathing, preparing meals, shopping, managing finances, etc.?: No Are you currently unemployed and looking for a job?: No Are you interested in more education?: No Currently or been in a relationship where the following occur: no concerns reported AUDIT C Alcohol Use Questionnaire (AUDIT-C) 1. How often do you have a drink containing alcohol?: Never 2. How many drinks containing alcohol do you have on a typical day when you are drinking?: 1 or 2 (0) 3. How often do you have six or more drinks on one occasion?: Never Total Score: 0 CAROLINA-7 AMB Questionnaire CAROLINA-7 Date CAROLINA - 7 assessed: 09/11/23 Feeling nervous, anxious, or on edge: 0 = Not at all Not being able to stop or control worryin = Not at all Worrying too much about different things: 0 = Not at all Trouble relaxin = Not at all Being so restless that it is hard to sit still: 0 = Not at all Becoming easily annoyed or irritable: 0 = Not at all Feeling afraid as if something awful might happen: 0 = Not at all Total CAROLINA-7 score (0-4 normal; 5-9 mild; 10-14 moderate; 15-21 severe): 0 Source: Developed by Drs. Yaw Arriaga, Jelena Eric, Seth Jaime and colleagues, with an educational lesley from [employer]. Physical exam (Primary Care) Tobacco/Smoking Status: Tobacco use Status Tobacco use date assessed 09/11/23 09/11/23 08:47 Patient Tobacco Use Status Never used Tobacco 09/11/23 08:47 e-Cigarette/Vaping Use Never Used 09/11/23 08:47 PHQ-9: PHQ-9 Score PHQ-9: Total score 0 09/11/23 12:18 Depression Screening Interpretation: Negative Thrive Assessment: Date of Thrive Assessment Date Thrive assessed 09/11/23 09/11/23 08:47 Currently or been in a relationship where the following occur: no concerns reported Telehealth Telehealth Location of provider rendering services: practice address Location of patient: address on file Patient Identification confirmed using: Name, : Yes Telehealth method: video (Iphone) Patient verbally consented to treatment: Yes Patient verbally consented to billing insurance company: Yes Patient informed of any privacy concerns related to visit: Yes Minutes spent on Phone/Video with Pt.: 15 Assessment and Plan Assessment & Plan (1) Type 2 diabetes mellitus with hyperglycemia: Comment: eye Dr. Adam Madera Code(s): E11.65 - Type 2 diabetes mellitus with hyperglycemia Qualifiers: Diabetes mellitus tank terminal gauger insulin use: without tank terminal gauger use Qualified Code(s): E11.65 - Type 2 diabetes mellitus with hyperglycemia Plan: Continue on metformin. Patient educated to decrease the amount of carbohydrate intake such as pasta, bread, rice and potatoes are all sugar in addition to the sweet stuff. Remember that fruits are good but they also have sugar. (2) Hypercholesterolemia: Code(s): E78.00 - Pure hypercholesterolemia, unspecified Plan: Continue on rosuvastatin 20 mg daily. Follow low-cholesterol diet. (3) Hypertension: Code(s): I10 - Essential (primary) hypertension Qualifiers: Hypertension type: essential hypertension Qualified Code(s): I10 - Essential (primary) hypertension Plan: Continue on Imdur 60 mg daily, lisinopril 40 mg and metoprolol 50 mg daily. Follow low-salt diet. (4) Coronary artery disease: Comment: RCA stent 2007 [place] of LAD March 2015 partial dissection of LAD post procedure Code(s): I25.10 - Atherosclerotic heart disease of [place] coronary artery without angina pectoris Qualifiers: Associated angina: without angina Coronary Disease-Associated Artery/Lesion type: [place] artery [place] vs. transplanted heart: [place] heart Qualified Code(s): I25.10 - Atherosclerotic heart disease of [place] coronary artery without angina pectoris Plan: Continue Eliquis, Plavix, statin and b/p medications. Continue to follow with Cardiology, Dr. Gong (5) GERD (gastroesophageal reflux disease): Code(s): K21.9 - Gastro-esophageal reflux disease without esophagitis Qualifiers: Esophagitis presence: without esophagitis Qualified Code(s): K21.9 - Gastro-esophageal reflux disease without esophagitis Plan: Given patient is omeprazole was discontinued due to interaction with Plavix will start patient on pantoprazole 20 mg daily for GERD. Avoid the foods that cause that, usually spicy foods, tomato products, juices, coffee, soda and foods that you're sensitive to.? After eating do not lie down, allow 3-4 hours before lying down. And keep the head of the bed above 30 degrees to avoid the acid from going up. Plan Keep scheduled follow-up with PCP or follow-up sooner needed. Medications: New pantoprazole 20 mg PO DAILY 30 tabs 3RF K21.9 - Gastro-esophageal reflux disease without esophagitis Changed From isosorbide mononitrate ER 30 mg PO DAILY 90 tabs 3RF To isosorbide mononitrate ER 60 mg PO DAILY Coding Level of Care Code Tele New Pt Level 4 (24942) Diagnoses Type 2 diabetes mellitus with hyperglycemia, without long-term current use of insulin E11.65 Diabetes mellitus tank terminal gauger insulin use: without tank terminal gauger use Hypercholesterolemia E78.00 Essential hypertension I10 Hypertension type: essential hypertension Coronary artery disease involving [place] coronary artery of [place] heart without angina pectoris I25.10 Associated angina: without angina Coronary Disease-Associated Artery/Lesion type: [place] artery [place] vs. transplanted heart: [place] heart Gastroesophageal reflux disease without esophagitis K21.9 Esophagitis presence: without esophagitis Additional Codes PHQ-9 - 02043 - PHQ-9 Billing: ([id number])
== END 2023-09-11 09:16 | disposition home or self-care (01) ==
LOC: HO.HMGH 08:43
PROVIDERS: PCP Internal Medicine; Visit Provider Nurse Practitioner Family
DX: E11.65 Type 2 diabetes mellitus with hyperglycemia (principal); E78.00 Pure hypercholesterolemia, unspecified; I10 Essential (primary) hypertension; I25.10 Atherosclerotic heart disease of native coronary artery without angina pectoris; K21.9 Gastro-esophageal reflux disease without esophagitis
CPT/HCPCS: 99214

== ENCOUNTER 2023-11-21 13:40 | Outpatient (AMB) | payer MEDICARE, OTHER, SELFPAY ==
[2023-11-21 13:41] VITALS: BP 162/86; PULSE 74; O2SAT 100; BMI 28.7
--- NOTE | 2023-11-21 13:41 | MHC.PC.OV ---
Vital Signs 11/21/23 13:41 Height 5 ft 8 in Weight 189 lb 0.2 oz BMI 28.7 BP 162/86 H Blood Pressure Location Lt brachial Position Sitting Pulse 74 Pulse Source Pulse Oximeter Pulse Oximetry (%) 100 Oxygen Delivery Method Room Air Intake Visit Reasons: ongoing back pain Home Service Consultant Required: No Allergies Sulfa (Sulfonamide Antibiotics) Allergy (Unknown, Verified 11/21/23 13:47) general sickness Medication List - Last Reconciled 11/21/23 by Jesse Chaudhry MD alprazolam 0.25 mg PO DAILY PRN apixaban (Eliquis) 5 mg PO BID blood sugar diagnostic ([employer] Ultra Blue Test Strip) As directed check the blood sugars once a day blood sugar diagnostic As directed calcium carbonate-vitamin D3 600 mg-5 mcg (200 unit) (Calcium 600 + D(3)) caps PO clopidogrel (Plavix) 75 mg PO DAILY famotidine 20 mg PO BEDTIME felodipine ER 10 mg PO DAILY fluticasone propionate 50 mcg/actuation (Flonase Allergy Relief) 2 sprays intranasal DAILY 30 days hydrochlorothiazide 25 mg PO DAILY isosorbide mononitrate ER 60 mg PO DAILY lisinopril 40 mg PO DAILY metformin 1,000 mg (2 x 500 mg) PO BID metoprolol succinate ER 50 mg PO DAILY nitroglycerin (Nitrostat) 0.4 mg sublingual Q5M PRN omega-3 fatty acids 1,000 mg PO DAILY pantoprazole 20 mg PO DAILY rosuvastatin 20 mg PO DAILY spironolactone 25 mg PO DAILY Tobacco use date assessed: 11/21/23 Fall risk assessment: No Falls in past year Last assessed Fall Risk: 11/21/23 HPI ongoing back pain HPI Details 88-year-old overweight male with controlled diabetes mellitus hypercholesterolemia hypertension coronary artery disease GERD last seen August 2023. Review of the notes October 2023 chest pain/pressure. Patient was seen by Cardiology history of coronary artery disease status post LAD stenting had PCI of calcified PDA lesion unsuccessful rotational arthrectomy medically managed admitted August 2023 with left-sided chest pressure with shortness of breath and palpitations found to have hypertension AFib with rapid ventricular rate. Underwent echocardiogram which revealed normal left ventricular size preserved systolic function of 60-65% with basal to mid inferior inferolateral lawson moderate severely hypokinetic left atrium moderately dilated. Preserved right ventricular systolic function trace tricuspid, mild aortic regurg patient underwent cardiac catheterization August 2023 minimal luminal irregularities in the left main LAD with diffuse moderate disease without high-grade stenosis undersized with patent stent from 2004 in the mid LAD circumflex is 70% heavily calcified on M1 stenosis RCA heavily calcified 70% mid RCA and 70% right PDA stenosis no intervention done placed on clopidogrel and isosorbide mononitrate increased to 60 mg every day started on apixaban for anticoagulation with AFib aspirin. Because of the clopidogrel omeprazole was the seed and placed on pantoprazole and famotidine. [facility] Medical History (Updated 11/21/23 @ 14:15 by Jesse Chaudhry MD) Acute effusion of both middle ears Skin cancer of nose Bradycardia, drug induced Bradycardia by electrocardiogram Atrial fibrillation Type 2 diabetes mellitus with hyperglycemia Diabetic nephropathy Hypercholesterolemia GERD (gastroesophageal reflux disease) Anxiety and depression Polymyalgia rheumatica Hypertension Coronary artery disease Surgical History (Updated 06/11/22 @ 09:35 by Jesse Chaudhry MD) History of cataract surgery History of tonsillectomy History of bilateral hip arthroplasty Left inguinal hernia Social History (Updated 06/06/21 @ 12:07 by Jesse Chaudhry MD) Housing: House Alcohol intake: former Patient Tobacco Use Status: Never used Tobacco e-Cigarette/Vaping Use: Never Used Second Hand Smoke Exposure: No service: Yes Current occupational status: retired Cognitive needs: No Hearing needs: No Vision needs: Yes Questionnaire Thrive Questionnaire Date Thrive assessed: 09/11/23 AUDIT C Alcohol Use Questionnaire (AUDIT-C) 1. How often do you have a drink containing alcohol?: Never 2. How many drinks containing alcohol do you have on a typical day when you are drinking?: 1 or 2 (0) 3. How often do you have six or more drinks on one occasion?: Never Total Score: 0 CAROLINA-7 AMB Questionnaire CAROLINA-7 Date CAROLINA - 7 assessed: 09/11/23 Source: Developed by Drs. Yaw Arriaga, Jelena Eric, Seth Jaime and colleagues, with an educational lesley from [employer]. Physical exam (Primary Care) Vital Signs: Last Vital Signs Pulse 74 11/21/23 13:41 BP 162/86 H 11/21/23 13:41 Pulse Ox 100 11/21/23 13:41 Oxygen Delivery Method Room Air 11/21/23 13:41 BMI result Body Mass Index 28.7 Tobacco/Smoking Status: Tobacco use Status Tobacco use date assessed 11/21/23 11/21/23 13:50 Patient Tobacco Use Status Never used Tobacco 11/21/23 13:50 e-Cigarette/Vaping Use Never Used 11/21/23 13:50 Thrive Assessment: Date of Thrive Assessment Date Thrive assessed 09/11/23 11/21/23 13:50 Const General: alert; No acute distress Eyes Conjunctivae: conjunctivae normal Resp Auscultation: clear to auscultation bilaterally Cardio Rate: regular rate Rhythm: regular rhythm GI Inspection: Yes normal to inspection Extrem General: Yes normal to inspection and No edema Results AMB Hemoglobin A1c AMB Hemoglobin A1c 7.3 % Last Edit by ESPINOZA Gold on 11/21/23 13:57 Results Reviewed Results Reviewed: Laboratory Last Values Hgb A1c (Clinic) 7.3 % (4.0-6.0) H 11/21/23 13:09 Assessment and Plan Assessment & Plan (1) Coronary artery disease: Comment: RCA stent 2007 [place] of LAD March 2015 partial dissection of LAD post procedure Code(s): I25.10 - Atherosclerotic heart disease of [place] coronary artery without angina pectoris Qualifiers: Coronary Disease-Associated Artery/Lesion type: [place] artery [place] vs. transplanted heart: [place] heart Associated angina: without angina Qualified Code(s): I25.10 - Atherosclerotic heart disease of [place] coronary artery without angina pectoris Plan: Control the cholesterol, weight, blood pressure, diabetes patient placed on anticoagulation and clopidogrel (2) Hypertension: Code(s): I10 - Essential (primary) hypertension Qualifiers: Hypertension type: essential hypertension Qualified Code(s): I10 - Essential (primary) hypertension Plan: Continue with blood pressure medication. Decrease salt intake and exercise continue with felodipine 10 mg once a day hydrochlorothiazide 25 mg once a day lisinopril 40 mg once a day metoprolol 50 mg once a day (3) GERD (gastroesophageal reflux disease): Code(s): K21.9 - Gastro-esophageal reflux disease without esophagitis Qualifiers: Esophagitis presence: without esophagitis Qualified Code(s): K21.9 - Gastro-esophageal reflux disease without esophagitis Plan: Avoid the foods that causes that usually spicy foods, tomato products, juices, coffee, soda and foods that your sensitive to. After eating do not lie down, allow 3-4 hours before in lie down. And keep the head of bed above 30 degrees to avoid the acid from going up. Pantoprazole 20 mg once a day (4) Hypercholesterolemia: Code(s): E78.00 - Pure hypercholesterolemia, unspecified Plan: Avoid fried foods, chicken skin, eggs, butter margarine, pastries and meat. Be it pork or beef they have a lot of cholesterol LDL goal of less than 70 and triglyceride of less than 150 patient on rosuvastatin 20 mg once a day (5) Type 2 diabetes mellitus with hyperglycemia: Comment: eye Dr. Adam Madera Code(s): E11.65 - Type 2 diabetes mellitus with hyperglycemia Qualifiers: Diabetes mellitus half-way insulin use: without tank terminal gauger use Qualified Code(s): E11.65 - Type 2 diabetes mellitus with hyperglycemia Plan: Decrease the amount of carbohydrate intake, pasta, bread, rice and potatoes are all sugar and that is aside from all the sweet stuff, remember that fruits are good but they are Sweet also. Metformin a 1000 mg twice a day (6) Generalized anxiety disorder: Code(s): F41.1 - Generalized anxiety disorder Plan: Continue with medication p.r.n. (7) Atrial fibrillation: Comment: Paroxysmal 2014 Dr. Gong Code(s): I48.91 - Unspecified atrial fibrillation (8) Sacroiliac joint pain: Code(s): M53.3 - Sacrococcygeal disorders, not elsewhere classified Orders: Orders Thyroid Stimulating Hormone Today E11.65 - Type 2 diabetes mellitus with hyperglycemia Hemoglobin A1c Today E11.65 - Type 2 diabetes mellitus with hyperglycemia Lipid Panel Today E11.65 - Type 2 diabetes mellitus with hyperglycemia, E78.00 - Pure hypercholesterolemia, unspecified Creatinine Urine Today E11.65 - Type 2 diabetes mellitus with hyperglycemia Microalbumin, Random (w Creat) Today E11.65 - Type 2 diabetes mellitus with hyperglycemia AMB Hemoglobin A1c Today E11.65 - Type 2 diabetes mellitus with hyperglycemia Comprehensive Met. Panel Today E11.65 - Type 2 diabetes mellitus with hyperglycemia Complete Blood Count Auto Diff Today E11.65 - Type 2 diabetes mellitus with hyperglycemia Free T4 (Free Thyroxine) Today E11.65 - Type 2 diabetes mellitus with hyperglycemia Vitamin B12 and Folate Today E11.65 - Type 2 diabetes mellitus with hyperglycemia XR lumbar spine 2-3V Today M53.3 - Sacrococcygeal disorders, not elsewhere classified Medications: New famotidine 20 mg PO BEDTIME 90 tabs 0RF mometasone 50 mcg/actuation (Nasonex 24hr Allergy) administer into each nostril 2 sprays intranasal DAILY PRN 17 grams 0RF nasal congestion diclofenac sodium 1% (Voltaren Arthritis Pain) apply to single knee, ankle, foot; for foot includes sole/toes/top of foot 4 grams topical QID 100 grams 3RF M53.3 - Sacrococcygeal disorders, not elsewhere classified spironolactone 25 mg PO DAILY 30 tabs 0RF Discontinued fluticasone propionate 50 mcg/actuation (Flonase Allergy Relief) administer into each nostril Discontinued Reason: Ancillary Entered New Order 2 sprays intranasal DAILY 30 days 16 grams 5RF Coding Level of Care Code Est Pt Level 4 (34811) Diagnoses Coronary artery disease involving [place] coronary artery of [place] heart without angina pectoris I25.10 Coronary Disease-Associated Artery/Lesion type: [place] artery [place] vs. transplanted heart: [place] heart Associated angina: without angina Essential hypertension I10 Hypertension type: essential hypertension Gastroesophageal reflux disease without esophagitis K21.9 Esophagitis presence: without esophagitis Hypercholesterolemia E78.00 Type 2 diabetes mellitus with hyperglycemia, without long-term current use of insulin E11.65 Diabetes mellitus half-way insulin use: without tank terminal gauger use Generalized anxiety disorder F41.1 Atrial fibrillation I48.91 Sacroiliac joint pain M53.3
== END 2023-11-21 14:22 | disposition home or self-care (01) ==
PROVIDERS: PCP Internal Medicine; Visit Provider Internal Medicine
DX: E11.65 Type 2 diabetes mellitus with hyperglycemia (principal); I48.91 Unspecified atrial fibrillation; I25.10 Atherosclerotic heart disease of native coronary artery without angina pectoris; I10 Essential (primary) hypertension; K21.9 Gastro-esophageal reflux disease without esophagitis; E78.00 Pure hypercholesterolemia, unspecified; F41.1 Generalized anxiety disorder; M53.3 Sacrococcygeal disorders, not elsewhere classified
CPT/HCPCS: 83036; 99214

== ENCOUNTER 2023-11-21 14:26 | Outpatient (REF) | payer MEDICARE, OTHER, SELFPAY | END 2023-11-21 14:27 | disposition home or self-care (01) | LOC: HO.XRAY 14:26 | PROVIDERS: PCP Internal Medicine; Visit Provider Internal Medicine | DX: M53.3 Sacrococcygeal disorders, not elsewhere classified (principal) | CPT/HCPCS: 72100 ==

== ENCOUNTER 2023-12-02 16:18 | Outpatient (AMB) | payer MEDICARE, OTHER, SELFPAY ==
[2023-12-02 16:21] VITALS: BP 140/60; PULSE 60; O2SAT 99; BMI 28.3
--- NOTE | 2023-12-02 16:21 | A.OFFPC_ITS ---
Vital Signs 12/02/23 16:21 Height 5 ft 8 in Weight 186 lb BMI 28.3 BP 140/60 H Blood Pressure Location Lt brachial Position Sitting Pulse 60 Pulse Source Pulse Oximeter Pulse Oximetry (%) 99 Oxygen Delivery Method Room Air Intake Visit Reasons: Lower Back Pain Intake Note: pt states lower back pain [id number] Rotary Shear Operator Required: No Allergies Sulfa (Sulfonamide Antibiotics) Allergy (Unknown, Verified 12/02/23 16:21) general sickness Medication List - Last Reconciled 12/02/23 by Jesse Chaudhry MD alprazolam 0.25 mg PO DAILY PRN apixaban (Eliquis) 5 mg PO BID blood sugar diagnostic ([employer] Ultra Blue Test Strip) As directed check the blood sugars once a day blood sugar diagnostic As directed calcium carbonate-vitamin D3 600 mg-5 mcg (200 unit) (Calcium 600 + D(3)) caps PO clopidogrel (Plavix) 75 mg PO DAILY cyclobenzaprine 10 mg PO BEDTIME PRN diclofenac sodium 1% (Voltaren Arthritis Pain) 4 grams topical QID famotidine 20 mg PO BEDTIME felodipine ER 10 mg PO DAILY hydrochlorothiazide 25 mg PO DAILY isosorbide mononitrate ER 60 mg PO DAILY lisinopril 40 mg PO DAILY metformin 1,000 mg (2 x 500 mg) PO BID metoprolol succinate ER 50 mg PO DAILY nitroglycerin (Nitrostat) 0.4 mg sublingual Q5M PRN omega-3 fatty acids 1,000 mg PO DAILY pantoprazole 20 mg PO DAILY rosuvastatin 20 mg PO DAILY spironolactone 25 mg PO DAILY triamcinolone acetonide (Nasacort) 2 sprays intranasal DAILY Tobacco use date assessed: 12/02/23 Fall risk assessment: No Falls in past year Last assessed Fall Risk: 12/02/23 HPI Lower Back Pain HPI Details 88-year-old overweight male with a histo ry of coronary artery disease hypertension GERD hypercholesterolemia diabetes mellitus generalized anxiety disorder atrial fibrillation last seen in October 2023.. Patient was having lower back pain and an x-ray was done. Results are pending [facility] Medical History (Updated 11/21/23 @ 14:15 by Jesse Chaudhry MD) Acute effusion of both middle ears Skin cancer of nose Bradycardia, drug induced Bradycardia by electrocardiogram Atrial fibrillation Type 2 diabetes mellitus with hyperglycemia Diabetic nephropathy Hypercholesterolemia GERD (gastroesophageal reflux disease) Anxiety and depression Polymyalgia rheumatica Hypertension Coronary artery disease Surgical History (Updated 06/11/22 @ 09:35 by Jesse Chaudhry MD) History of cataract surgery History of tonsillectomy History of bilateral hip arthroplasty Left inguinal hernia Social History (Updated 06/06/21 @ 12:07 by Jesse Chaudhry MD) Housing: House Alcohol intake: former Patient Tobacco Use Status: Never used Tobacco e-Cigarette/Vaping Use: Never Used Second Hand Smoke Exposure: No service: Yes Current occupational status: retired Cognitive needs: No Hearing needs: No Vision needs: Yes Questionnaire Thrive Questionnaire Date Thrive assessed: 09/11/23 AUDIT C Alcohol Use Questionnaire (AUDIT-C) 1. How often do you have a drink containing alcohol?: Never 2. How many drinks containing alcohol do you have on a typical day when you are drinking?: 1 or 2 (0) 3. How often do you have six or more drinks on one occasion?: Never Total Score: 0 CAROLINA-7 AMB Questionnaire CAROLINA-7 Date CAROLINA - 7 assessed: 09/11/23 Source: Developed by Drs. Yaw Arriaga, Jelena Eric, Seth Jaime and colleagues, with an educational lesley from [employer]. Physical exam (Primary Care) Vital Signs: Last Vital Signs Pulse 60 12/02/23 16:21 BP 140/60 H 12/02/23 16:21 Pulse Ox 99 12/02/23 16:21 Oxygen Delivery Method Room Air 12/02/23 16:21 BMI result Body Mass Index 28.3 Tobacco/Smoking Status: Tobacco use Status Tobacco use date assessed 12/02/23 12/02/23 16:22 Patient Tobacco Use Status Never used Tobacco 12/02/23 16:22 e-Cigarette/Vaping Use Never Used 12/02/23 16:22 Thrive Assessment: Date of Thrive Assessment Date Thrive assessed 09/11/23 12/02/23 16:22 Const General: alert; No acute distress Eyes Conjunctivae: conjunctivae normal Resp Auscultation: clear to auscultation bilaterally Cardio Rate: regular rate Rhythm: regular rhythm GI Inspection: Yes normal to inspection Extrem General: Yes normal to inspection and No edema Assessment and Plan Assessment & Plan (1) Sacroiliac joint pain: Code(s): M53.3 - Sacrococcygeal disorders, not elsewhere classified Plan: X-rays pending Back sent sent for pain reliever. (2) Atrial fibrillation: Comment: Paroxysmal 2015 Dr. Gong Code(s): I48.91 - Unspecified atrial fibrillation Plan: Continue with anticoagulation. And will continue to follow-up renal function (3) Nasal congestion: Code(s): R09.81 - Nasal congestion Plan: Nasonex not given? Insurance coverage Nasacort sent in. (4) Hypertension: Code(s): I10 - Essential (primary) hypertension Qualifiers: Hypertension type: essential hypertension Qualified Code(s): I10 - Essential (primary) hypertension Plan: Blood pressure continues to be elevated. Continue with blood pressure med ication. Decrease salt intake and exercise will increase metoprolol to 75 mg once a day with George inhibitor, calcium channel cyn and diuretic. Medications: New triamcinolone acetonide (Nasacort) administer into each nostril 2 sprays intranasal DAILY 16.9 mL 2RF R09.81 - Nasal congestion cyclobenzaprine 10 mg PO BEDTIME PRN 30 tabs 0RF muscle spasm M53.3 - Sacrococcygeal disorders, not elsewhere classified Changed From metoprolol succinate ER 50 mg PO DAILY 180 tabs 1RF M53.3 - Sacrococcygeal disorders, not elsewhere classified To metoprolol succinate ER 75 mg (1.5 x 50 mg) PO DAILY 90 days 135 tabs 1RF M53.3 - Sacrococcygeal disorders, not elsewhere classified Discontinued mometasone 50 mcg/actuation (Nasonex 24hr Allergy) administer into each nostril Discontinued Reason: Insurance Denied 2 sprays intranasal DAILY PRN 17 grams 0RF nasal congestion Coding Level of Care Code Est Pt Level 4 (23553) Diagnoses Sacroiliac joint pain M53.3 Atrial fibrillation I48.91 Nasal congestion R09.81 Essential hypertension I10 Hypertension type: essential hypertension
== END 2023-12-02 17:11 | disposition home or self-care (01) ==
PROVIDERS: PCP Internal Medicine; Visit Provider Internal Medicine
DX: M53.3 Sacrococcygeal disorders, not elsewhere classified (principal); I48.91 Unspecified atrial fibrillation; R09.81 Nasal congestion; I10 Essential (primary) hypertension
CPT/HCPCS: 99214

== ENCOUNTER 2024-02-24 07:39 | Outpatient (REF) | payer MEDICARE, OTHER, SELFPAY ==
[2024-02-24 10:53] LABS: MANUAL DIFF FLAG NO
[2024-02-24 10:59] LABS: Basophils Absolute Auto 0.1 X10*3/uL (0.0-0.2); Basophils Percent Auto 1.1 % (0-2); Eosinophils Absolute Auto 0.3 X10*3/uL (0.0-0.4); Hematocrit 35.5 % (42.0-52.0); Hemoglobin 11.8 g/dl (14.0-18.0); Imm Gran Abs Auto 0.01 X10*3/uL (0.00-0.03); Imm Gran Pct Auto 0.2 % (0.0-0.4); Lymphocytes Absolute Auto 1.4 X10*3/uL (1.2-4.9); Lymphocytes Percent Auto 24.3 % (20-40); Mean Corpuscular HGB Conc 33.2 g/dl (31.0-36.0); Mean Corpuscular Hemoglobin 28.8 pg (27.0-33.0); Mean Corpuscular Volume 86.6 fL (80.0-98.0); Mean Platelet Volume 9.1 fL (9.4-12.4); Monocytes Absolute Auto 0.6 X10*3/uL (0.1-1.2); Neutrophils Absolute Auto 3.3 x10*3/uL (2.0-8.3); Neutrophils Percent Auto 59.4 % (45-73); Platelet Count 207 X10*3/uL (160-400); Red Cell Distribution Width 13.5 % (11.0-16.0); White Blood Count 5.6 X10*3/uL (4.8-10.8)
[2024-02-24 11:05] LABS: Estimated Average Glucose 157 mg/dL; Hemoglobin A1c % 7.1 % (<6.0)
[2024-02-24 11:14] LABS: Alanine Aminotransferase 16 U/L (0-40); Albumin Level 3.9 g/dL (3.5-5.0); Alkaline Phosphatase 73 U/L (39-117); Anion Gap 14 (12-20); Aspartate Amino Transferase 16 U/L (5-37); Bilirubin Total 0.5 mg/dL (0.0-1.0); Blood Urea Nitrogen 27 mg/dL (9-16); Calcium 8.7 mg/dL (8.4-10.2); Carbon Dioxide 24 mmol/L (22-29); Chloride 104 mmol/L (96-108); Cholesterol 110 mg/dL (<200); Estimated Glomerular Filt Rate > 60; Glucose Random 188 mg/dL (60-115); HDL Cholesterol 39 mg/dL (>40); LDL Cholesterol Calculated 40 mg/dL (<100); Potassium 4.8 mmol/L (3.3-5.1); Sodium 137 mmol/L (135-145); Total Protein 6.7 g/dL (6.5-8.0); Triglycerides 159 mg/dL (<150)
[2024-02-24 11:31] LABS: Free T4 (Free Thyroxine) 0.97 ng/dL (0.71-1.85)
[2024-02-24 11:55] LABS: Folate 14.7 ng/mL (> or = 4.0); Vitamin B12 461 pg/mL (200-900)
== END 2024-02-24 07:40 | disposition home or self-care (01) ==
LOC: HO.10HDL 07:39
PROVIDERS: Visit Provider Internal Medicine
DX: E78.00 Pure hypercholesterolemia, unspecified (principal); E11.65 Type 2 diabetes mellitus with hyperglycemia
CPT/HCPCS: 36415; 80053; 80061; 82607; 82746; 83036; 84439; 84443; 85025

== ENCOUNTER 2024-02-26 13:56 | Outpatient (AMB) | payer MEDICARE, OTHER, SELFPAY ==
[2024-02-26 14:00] VITALS: BP 160/72; PULSE 55; O2SAT 98; BMI 28.9
--- NOTE | 2024-02-26 14:00 | A.OFFPC_ITS ---
Vital Signs 02/26/24 14:00 Height 5 ft 8 in Weight 190 lb BMI 28.9 BP 160/72 H Blood Pressure Location Lt brachial Position Sitting Pulse 55 Pulse Source Pulse Oximeter Pulse Oximetry (%) 98 Oxygen Delivery Method Room Air Intake Visit Reasons: DM , CAD Dough Mixer Required: No Allergies Sulfa (Sulfonamide Antibiotics) Allergy (Unknown, Verified 02/26/24 14:01) general sickness Tobacco use date assessed: 02/26/24 Fall risk assessment: No Falls in past year Last assessed Fall Risk: 02/26/24 HPI DM , CAD HPI Details 88-year-old male with a history of atria l fibrillation, diabetes mellitus, hypercholesterolemia, GERD and coronary artery disease, hypertension sacroiliac joint pain last seen in December 2023 blood work done. [facility] Medical History (Updated 02/26/24 @ 14:24 by Jesse Chaudhry MD) Acute effusion of both middle ears Skin cancer of nose Bradycardia, drug induced Bradycardia by electrocardiogram Atrial fibrillation Type 2 diabetes mellitus with hyperglycemia Diabetic nephropathy Hypercholesterolemia GERD (gastroesophageal reflux disease) Anxiety and depression Polymyalgia rheumatica Hypertension Coronary artery disease Surgical History (Updated 06/11/22 @ 09:35 by Jesse Chaudhry MD) History of cataract surgery History of tonsillectomy History of bilateral hip arthroplasty Left inguinal hernia Social History (Updated 06/06/21 @ 12:07 by Jesse Chaudhry MD) Housing: House Alcohol intake: former Patient Tobacco Use Status: Never used Tobacco e-Cigarette/Vaping Use: Never Used Second Hand Smoke Exposure: No service: Yes Current occupational status: retired Cognitive needs: No Hearing needs: No Vision needs: Yes Questionnaire PHQ-9 Over the last 2 weeks, how often have you been bothered by any of the following problems? 1. Little interest or pleasure in doing things: not at all 2. Feeling down, depressed, or hopeless: not at all 3. Trouble falling or staying asleep, or sleeping too much: not at all 4. Feeling tired or having little energy: not at all 5. Poor appetite or overeating: not at all 6. Feeling bad about yourself - or that you are a failure or have let yourself or your family down: not at all 7. Trouble concentrating on things, such as reading the newspaper or watching television: not at all 8. Moving or speaking so slowly that other people could have noticed. Or the opposite - being so fidgety or restless that you have been moving around a lot more than usual: not at all 9. Thoughts that you would be better off or of hurting yourself in some way: not at all Total score: 0 Depression Screening Interpretation: Negative Depression Screening Done: Yes 70060 - PHQ-9 Billing: Yes Source: Developed by Drs. Yaw Arriaga, Jelena Eric, Seth Jaime and colleagues, with an educational lesley from [employer]. Thrive Questionnaire Date Thrive assessed: 02/26/24 I am a: Patient What is your living situation today?: I have a steady place to live Within the past 12 months, did the food you bought not last and you didn't have the money to get more?: Never true Within the past 12 months, did you worry whether your food would run out before you got money to buy more?: Never true Do you have trouble paying for medicines?: No Do you have trouble getting transportation to medical appointments?: No Do you have trouble paying your heating and electricity bill?: No Do you have trouble taking care of your child, family member or friend?: No Do you have trouble with day-to-day activities such as bathing, preparing meals, shopping, managing finances, etc.?: No Are you currently unemployed and looking for a job?: No Are you interested in more education?: No Please select the resources that you would like help with: None Currently or been in a relationship where the following occur: no concerns reported THRIVE Score: 0 AUDIT C Alcohol Use Questionnaire (AUDIT-C) 1. How often do you have a drink containing alcohol?: Never 2. How many drinks containing alcohol do you have on a typical day when you are drinking?: 1 or 2 (0) 3. How often do you have six or more drinks on one occasion?: Never Total Score: 0 CAROLINA-7 AMB Questionnaire CAROLINA-7 Date CAROLINA - 7 assessed: 02/26/24 Feeling nervous, anxious, or on edge: 0 = Not at all Not being able to stop or control worryin = Not at all Worrying too much about different things: 0 = Not at all Trouble relaxin = Not at all Being so restless that it is hard to sit still: 0 = Not at all Becoming easily annoyed or irritable: 0 = Not at all Feeling afraid as if something awful might happen: 0 = Not at all Total CAROLINA-7 score (0-4 normal; 5-9 mild; 10-14 moderate; 15-21 severe): 0 Source: Developed by Drs. Yaw Arriaga, Jelena Eric, Seth Jaime and colleagues, with an educational lesley from [employer]. CAROLINA-7 Assessment Billing CAROLINA-7 Assessment Tool: CAROLINA-7 Assessment 34358 Physical exam (Primary Care) Vital Signs: Last Vital Signs Pulse 55 02/26/24 14:00 BP 160/72 H 02/26/24 14:00 Pulse Ox 98 02/26/24 14:00 Oxygen Delivery Method Room Air 02/26/24 14:00 BMI result Body Mass Index 28.9 Tobacco/Smoking Status: Tobacco use Status Tobacco use date assessed 02/26/24 02/26/24 14:02 Patient Tobacco Use Status Never used Tobacco 02/26/24 14:02 e-Cigarette/Vaping Use Never Used 02/26/24 14:02 PHQ-9: PHQ-9 Score PHQ-9: Total score 0 02/26/24 14:26 Depression Screening Interpretation: Negative Thrive Assessment: Date of Thrive Assessment Date Thrive assessed 02/26/24 02/26/24 14:02 Currently or been in a relationship where the following occur: no concerns reported Const General: alert; No acute distress Eyes Conjunctivae: conjunctivae normal Resp Auscultation: clear to auscultation bilaterally Cardio Rate: regular rate Rhythm: regular rhythm GI Inspection: Yes normal to inspection Extrem General: Yes normal to inspection and No edema Assessment and Plan Assessment & Plan (1) Coronary artery disease: Comment: RCA stent 2007 [place] of LAD March 2015 partial dissection of LAD post procedure Code(s): I25.10 - Atherosclerotic heart disease of [place] coronary artery without angina pectoris Qualifiers: Associated angina: without angina Coronary Disease-Associated Artery/Lesion type: [place] artery [place] vs. transplanted heart: [place] heart Qualified Code(s): I25.10 - Atherosclerotic heart disease of [place] coronary artery without angina pectoris Plan: Control the cholesterol, weight, blood pressure, diabetes continue with taking Plavix and anticoagulation (2) Hypertension: Code(s): I10 - Essential (primary) hypertension Qualifiers: Hypertension type: essential hypertension Qualified Code(s): I10 - Essential (primary) hypertension Plan: Continue with blood pressure medication. Decrease salt intake and exercise patient takes carvedilol 12.5 mg twice a day felodipine 10 mg once a day hydrochlorothiazide 25 mg once a day lisinopril 40 mg once a day patient is also on spironolactone and isosorbide mononitrate. PAtient states being followed up by cardiology and changed metoprolol to carvedilol (3) GERD (gastroesophageal reflux disease): Code(s): K21.9 - Gastro-esophageal reflux disease without esophagitis Qualifiers: Esophagitis presence: without esophagitis Qualified Code(s): K21.9 - Gastro-esophageal reflux disease without esophagitis Plan: Avoid the foods that causes that usually spicy foods, tomato products, juices, coffee, soda and foods that your sensitive to. After eating do not lie down, allow 3-4 hours before in lie down. And keep the head of bed above 30 degrees to avoid the acid from going up. (4) Hypercholesterolemia: Code(s): E78.00 - Pure hypercholesterolemia, unspecified Plan: Avoid fried foods, chicken skin, eggs, butter margarine, pastries and meat. Be it pork or beef they have a lot of cholesterol LDL goal of less than 70 and triglyceride of less than 150. On rosuvastatin 20 mg once a day (5) Type 2 diabetes mellitus with hyperglycemia: Comment: eye Dr. Adam Madera Code(s): E11.65 - Type 2 diabetes mellitus with hyperglycemia Qualifiers: Diabetes mellitus half-way insulin use: without half-way use Qualified Code(s): E11.65 - Type 2 diabetes mellitus with hyperglycemia Plan: Decrease the amount of carbohydrate intake, pasta, bread, rice and potatoes are all sugar and that is aside from all the sweet stuff, remember that fruits are good but they are Sweet also. Hemoglobin A1c goal of less than 7.0. Patient on metformin 1000 mg twice a day (6) Atrial fibrillation: Comment: Paroxysmal 2014 Dr. Gong Code(s): I48.91 - Unspecified atrial fibrillation Plan: Continue with anticoagulation. (7) Anemia: Code(s): D64.9 - Anemia, unspecified Plan: Discussed with the patient on the need to further evaluate this. decline rectal exam Orders: Orders IRON PROFILE Today D64.9 - Anemia, unspecified Prothrombin Time INR Today D64.9 - Anemia, unspecified Ferritin Today D64.9 - Anemia, unspecified Comprehensive Met. Panel Today D64.9 - Anemia, unspecified Medications: Discontinued tramadol Discontinued Reason: Patient Refused 50 mg PO BEDTIME 7 tabs 0RF M53.3 - Sacrococcygeal disorders, not elsewhere classified Coding Level of Care Code Est Pt Level 4 (21417) Diagnoses Coronary artery disease involving [place] coronary artery of [place] heart without angina pectoris I25.10 Associated angina: without angina Coronary Disease-Associated Artery/Lesion type: [place] artery [place] vs. transplanted heart: [place] heart Essential hypertension I10 Hypertension type: essential hypertension Gastroesophageal reflux disease without esophagitis K21.9 Esophagitis presence: without esophagitis Hypercholesterolemia E78.00 Type 2 diabetes mellitus with hyperglycemia, without long-term current use of insulin E11.65 Diabetes mellitus manager long term care insulin use: without manager long term care use Atrial fibrillation I48.91 Anemia D64.9 Additional Codes CAROLINA-7 Assessment Billing - ACROLINA-7 Assessment Tool: CAROLINA-7 Assessment 78964 ([id number])
== END 2024-02-26 14:46 | disposition home or self-care (01) ==
PROVIDERS: PCP Internal Medicine; Visit Provider Internal Medicine
DX: E11.65 Type 2 diabetes mellitus with hyperglycemia (principal); I48.91 Unspecified atrial fibrillation; I25.10 Atherosclerotic heart disease of native coronary artery without angina pectoris; I10 Essential (primary) hypertension; K21.9 Gastro-esophageal reflux disease without esophagitis; E78.00 Pure hypercholesterolemia, unspecified; D64.9 Anemia, unspecified
CPT/HCPCS: 99214

== ENCOUNTER 2024-03-31 09:50 | Emergency (ER) | payer MEDICARE, OTHER, SELFPAY ==
--- NOTE | ~2024-03-31 | CT_ITS ---
EXAMINATION: CT CERVICAL SPINE WITHOUT CONTRAST CLINICAL INFORMATION: Fall. Head strike COMPARISON: None available. TECHNIQUE: Thin section axial imaging with sagittal coronal reformats. This CT examination was performed using dose optimization techniques as appropriate, variously including the following: *Automated exposure control *Adjustment of mA and/or kV according to patient size (this includes techniques or standardized protocols for targeted exams where dose is matched to indication/reason for exam; i.e. extremities or head) *Use of iterative reconstruction technique DLP: 323 mGy-cm FINDINGS: Advanced degenerative change noted C5-C6 and C6-C7 with disc space narrowing and posterior spurring but no fracture or significant encroachment on the spinal canal. Prevertebral soft tissues are normal. CT/CT cervical spine wo IV con IMPRESSION: Multilevel degenerative change but no fracture. Fleischner guidelines were followed.
--- NOTE | ~2024-03-31 | CT_ITS ---
EXAMINATION: CT HEAD WITHOUT CONTRAST CLINICAL INFORMATION: Fall with head strike on anticoagulation COMPARISON: None available. TECHNIQUE: Contiguous axial imaging was performed from the skull base to vertex without intravenous administration of contrast. This CT examination was performed using dose optimization techniques as appropriate, variously including the following: *Automated exposure control *Adjustment of mA and/or kV according to patient size (this includes techniques or standardized protocols for targeted exams where dose is matched to indication/reason for exam; i.e. extremities or head) *Use of iterative reconstruction technique DLP: 722 mGy-cm FINDINGS: There is prominence to the sulci and ventricles with deep white matter involutional change however, no evidence for intra or extra-axial fluid collection or hemorrhage, mass, or mass effect. Calvarium is intact. CT/CT head/brain wo IV con IMPRESSION: No acute intracranial pathology.
[2024-03-31 09:54] VITALS: BP 155/68; PULSE 61; RESP 17; TEMP 36.2; O2SAT 98; BMI 28.2
--- NOTE | 2024-03-31 10:09 | ED_ITS ---
HPI - Fall General Chief Complaint: Fall Stated Complaint: Fall today - lac back of head Time Seen by Provider: 03/31/24 10:07 Source: patient Mode of arrival: ambulatory Limitations: no limitations History of Present Illness HPI Narrative: 88-year-old male with history of AFib on Eliquis, anemia, anxiety, CAD, PMR, HTN, HLD, dm who presents to the ER for evaluation after he slipped and fell hitting the back of his head on a door way half an hour prior to arrival. He is on Eliquis and Plavix. He states he was trying to lift something, turned quickly, lost his balance and fell backward hitting his head on the doorjamb. No loss of consciousness. He sustained a laceration to the back of his head with bleeding. No other injuries. No headache or neck pain. No preceding chest pain or abdominal pain. MD complaint: fall Onset (ago): minute(s) Fall from: standing Fall witnessed: no Place fall occurred: home Loss of consciousness: none Symptoms prior to fall: none Context: tripped/slipped Location of injury: head Severity: mild Associated symptoms (after fall): denies Related Data Home Medications ?Medication ?Instructions ?Recorded ?Confirmed calcium carbonate 600 mg-vitamin cap PO 11/14/20 12/02/23 D3 5 mcg (200 unit) capsule (Calcium 600 + D(3)) omega-3 fatty acids 1,000 mg 1,000 mg PO DAILY 11/14/20 12/02/23 capsule blood sugar diagnostic #10 ea 02/06/21 12/02/23 apixaban 5 mg tablet (Eliquis) 5 mg PO BID 09/11/23 12/02/23 clopidogrel 75 mg tablet (Plavix) 75 mg PO DAILY 09/11/23 12/02/23 isosorbide mononitrate 30 mg 60 mg PO DAILY 09/11/23 12/02/23 tablet,extended release 24 hr Previous Rx's ?Medication ?Instructions ?Recorded blood sugar diagnostic (OneTouch #100 ea 02/06/21 Ultra Blue Test Strip) alprazolam 0.25 mg tablet 0.25 mg PO DAILY PRN anxiety #14 06/13/23 tabs hydrochlorothiazide 25 mg tablet 25 mg PO DAILY #90 tabs 08/18/23 lisinopril 40 mg tablet 40 mg PO DAILY #90 tabs 08/18/23 nitroglycerin 0.4 mg sublingual 0.4 mg sublingual Q5M PRN chest 09/05/23 tablet (Nitrostat) pain #25 tabs rosuvastatin 20 mg tablet 20 mg PO DAILY #90 tabs 09/20/23 diclofenac sodium 1 % topical gel 4 g topical QID #100 grams 11/21/23 (Voltaren Arthritis Pain) famotidine 20 mg tablet 20 mg PO BEDTIME #90 tabs 11/21/23 spironolactone 25 mg tablet 25 mg PO DAILY #30 tabs 11/21/23 cyclobenzaprine 10 mg tablet 10 mg PO BEDTIME PRN muscle spasm 12/02/23 #30 tabs triamcinolone acetonide 55 mcg 2 spray intranasal DAILY #16.9 mL 12/02/23 nasal spray aerosol (Nasacort) metformin 500 mg tablet 1,000 mg (2 x 500 mg) PO BID #360 12/22/23 tabs felodipine 10 mg tablet,extended 10 mg PO DAILY #90 tabs 12/28/23 release 24 hr pantoprazole 20 mg tablet,delayed 20 mg PO DAILY #90 tabs 03/05/24 release carvedilol 12.5 mg tablet 12.5 mg PO BID 90 days #180 tabs 03/08/24 Allergies Allergy/AdvReac Type Severity Reaction Status Date / Time Sulfa (Sulfonamide Allergy Unknown general Verified 03/31/24 09:55 Antibiotics) sickness Review of Systems Review of Systems: Yes all other systems are reviewed and are negative PMFSH Past Medical History Medical History (Updated 03/31/24 @ 12:33 by SHELL Ovalles) Acute effusion of both middle ears Skin cancer of nose Bradycardia, drug induced Bradycardia by electrocardiogram Atrial fibrillation Type 2 diabetes mellitus with hyperglycemia Diabetic nephropathy Hypercholesterolemia GERD (gastroesophageal reflux disease) Anxiety and depression Polymyalgia rheumatica Hypertension Coronary artery disease Surgical History (Updated 06/11/22 @ 09:35 by Jesse Chaudhry MD) History of cataract surgery History of tonsillectomy History of bilateral hip arthroplasty Left inguinal hernia Social History Social History (Updated 06/06/21 @ 12:07 by Jesse Chaudhry MD) Housing: House Alcohol intake: former Patient Tobacco Use Status: Never used Tobacco e-Cigarette/Vaping Use: Never Used Second Hand Smoke Exposure: No Advance Directives: No Advance Directives Information Provided: Yes Do you have a plan to hurt others: No Plan service: Yes Current occupational status: retired Cognitive needs: No Hearing needs: No Vision needs: Yes Physical Exam Vital Signs: Vital Signs: Last Vital Signs Temp 97.1 F 03/31/24 09:54 Pulse 56 03/31/24 12:10 Resp 16 03/31/24 12:10 BP 155/58 H 03/31/24 12:10 Pulse Ox 97 03/31/24 12:10 O2 Del Method Room Air 03/31/24 12:10 BMI result Body Mass Index 28.2 Appearance: Alert. Oriented X3. No acute distress. Head: normocephalic, 5cm linear longitudinal laceration w/ mild ozzing in the upper occipital area. no palpable skull depressions or fractures. Eyes: Pupils equal, round and reactive to light. ENT: Pharynx normal. No tonsillar swelling or exudate. Neck: Normal inspection. Neck supple. no midline tenderness CVS: Normal heart rate and rhythm. Pulses normal. Respiratory: No respiratory distress. Breath sounds normal. Abdomen: Soft and nontender. +BS x4 Skin: Skin warm and dry. Normal skin color. Normal skin turgor. No rashes. Extremities: No lower extremity edema. No joint swelling. Neuro/psych: Oriented X 3. No motor deficit. No sensory deficit. CN II-XII int act. Normal speech and cognition. Procedures Laceration Laceration 1: Site: scalp Size (cm): 5 Description: linear Depth: simple, single layer Pre-repair: wound explored and irrigated extensively Skin layer closed with: other (ankur) Size (cm): other (ankur) Number of sutures: 7 Medical Decision Making Medical Decision Making MDM Narrative: Knee 8-year-old male with a history of AFib on Eliquis presents to the ER for evaluation of a laceration at the back of his head after he had a mechanical fal l this morning. Mild oozing from the area. Area was cleaned and required 7 ankur for closure. He is neurologically intact and acting appropriately. CT scan of the head and neck was performed given he is on anticoagulation and he struck his head, this showed no intracranial bleed. No acute fractures of the neck. He does have some degenerative changes. No midline tenderness on exam. Low suspicion for ligamentous injury in the neck. We discussed wound care for his head lack. At this time is stable for discharge home with outpatient follow-up. Differential Diagnosis Differential Diagnoses: The differential diagnosis associated with the presentation includes Superficial laceration, deep laceration, skull fracture, subdural hematoma, intracranial hemorrhage, concussion Admission/Observation Consideration of admission/observation: Escalation of care including admission/observation considered elderly male w/ head trauma, considered admission Independent Interpretation I performed an independent interpretation of an: CT Scan Interpretation: no intracranial edema or bleed Radiology Impression Discussion of test interpretation with radiology: I have reviewed the radiologist's reading. Radiologist Impression: EXAMINATION: CT HEAD WITHOUT CONTRAST CLINICAL INFORMATION: Fall with head strike on anticoagulation COMPARISON: None available. TECHNIQUE: Contiguous axial imaging was performed from the skull base to vertex without intravenous administration of contrast. This CT examination was performed using dose optimization techniques as appropriate, variously including the following: *Automated exposure control *Adjustment of mA and/or kV according to patient size (this includes techniques or standardized protocols for targeted exams where dose is matched to indication/reason for exam; i.e. extremities or head) *Use of iterative reconstruction technique DLP: 722 mGy-cm FINDINGS: There is prominence to the sulci and ventricles with deep white matter involutional change however, no evidence for intra or extra-axial fluid collection or hemorrhage, mass, or mass effect. Calvarium is intact. CT/CT head/brain wo IV con IMPRESSION: No acute intracranial pathology. EXAMINATION: CT CERVICAL SPINE WITHOUT CONTRAST CLINICAL INFORMATION: Fall. Head strike COMPARISON: None available. TECHNIQUE: Thin section axial imaging with sagittal coronal reformats. This CT examination was performed using dose optimization techniques as appropriate, variously including the following: *Automated exposure control *Adjustment of mA and/or kV according to patient size (this includes techniques or standardized protocols for targeted exams where dose is matched to indication/reason for exam; i.e. extremities or head) *Use of iterative reconstruction technique DLP: 323 mGy-cm FINDINGS: Advanced degenerative change noted C5-C6 and C6-C7 with disc space narrowing and posterior spurring but no fracture or significant encroachment on the spinal canal. Prevertebral soft tissues are normal. CT/CT cervical spine wo IV con IMPRESSION: Multilevel degenerative change but no fracture. External Record Review External record reviewed: Outpatient record, Prior outpatient labs and Prior outpatient radiology Prescription Management I considered prescription management with: Pain Medication Chronic Conditions Patient?s care impacted by: Other (afib) Critical Care Time Critical Care Time Critical Care Time: No Discharge Plan Discharge Clinical Impression: Laceration of head Qualifiers: Encounter type: initial encounter Location of open wound of head: scalp Foreign body presence: without foreign body Qualified Code(s): S01.01XA - Laceration without foreign body of scalp, initial encounter Patient Disposition: Home, Self-Care Instructions: Head Laceration (ED) Additional Instructions: CT scan of your head and neck did not show any injuries. 7 ankur were used to close your wound today You will need your ankur out in 7-14 days. See you doctor for this or come back to the ER and we will remove them. Do not get wet for 24 hours, after that you can briefly wash with soap and water then pat dry. Keep wound clean. If you develop signs of infection including increased pain, swelling, redness or drainage of pus come back to the ER for further evaluation. Prescriptions: No Action (DME) blood sugar diagnostic Strip See Rx Instructions .ROUTE .MEDSUPPLY Qty: 10 Rx Instructions: As directed (DME) OneTouch Ultra Blue Test Strip Strip See Rx Instructions .ROUTE .MEDSUPPLY Qty: 100 3RF Rx Instructions: As directed check the blood sugars once a day hydrochlorothiazide 25 mg tablet 25 mg PO DAILY Qty: 90 3RF lisinopril 40 mg tablet 40 mg PO DAILY Qty: 90 3RF nitroglycerin [Nitrostat] 0.4 mg tablet, sublingual 0.4 mg sublingual Q5M PRN (Reason: chest pain) Qty: 25 0RF Rx Instructions: do not exceed 3 doses per episode rosuvastatin 20 mg tablet 20 mg PO DAILY Qty: 90 3RF metformin 500 mg tablet 1,000 mg PO BID Qty: 360 3RF felodipine 10 mg tablet extended release 24 hr 10 mg PO DAILY Qty: 90 3RF pantoprazole 20 mg tablet,delayed release (DR/EC) 20 mg PO DAILY Qty: 90 1RF carvedilol 12.5 mg tablet 12.5 mg PO BID 90 Days Qty: 180 2RF Rx Instructions: must administer with a meal/food omega-3 fatty acids 1,000 mg capsule 1,000 mg PO DAILY Calcium 600 + D(3) 600 mg calcium- 200 unit capsule PO alprazolam 0.25 mg tablet 0.25 mg PO DAILY PRN (Reason: anxiety) Qty: 14 0RF triamcinolone acetonide [Nasacort] 55 mcg aerosol,spray 2 spray intranasal DAILY Qty: 16.9 2RF Rx Instructions: administer into each nostril cyclobenzaprine 10 mg tablet 10 mg PO BEDTIME PRN (Reason: muscle spasm) Qty: 30 0RF isosorbide mononitrate 30 mg tablet extended release 24 hr 60 mg PO DAILY Eliquis 5 mg tablet 5 mg PO BID clopidogrel [Plavix] 75 mg tablet 75 mg PO DAILY spironolactone 25 mg tablet 25 mg PO DAILY Qty: 30 0RF famotidine 20 mg tablet 20 mg PO BEDTIME Qty: 90 0RF diclofenac sodium [Voltaren Arthritis Pain] 1 % gel 4 g topical QID Qty: 100 3RF Rx Instructions: apply to single knee, ankle, foot; for foot includes sole/toes/top of foot Print Language: Swazi
[2024-03-31 12:10] VITALS: BP 155/58; PULSE 56; RESP 16; O2SAT 97
[2024-03-31 12:49] VITALS: BP 155/58; PULSE 56; RESP 16; TEMP 36.2; O2SAT 97
== END 2024-03-31 12:49 | disposition home or self-care (01) ==
PROVIDERS: Emergency Provider Emergency Medicine; PCP Internal Medicine
DX: S01.01XA Laceration without foreign body of scalp, initial encounter (principal); W22.09XA Striking against other stationary object, initial encounter; E11.9 Type 2 diabetes mellitus without complications; I10 Essential (primary) hypertension; E78.00 Pure hypercholesterolemia, unspecified; D64.9 Anemia, unspecified; I48.91 Unspecified atrial fibrillation; F41.1 Generalized anxiety disorder; Y93.89 Activity, other specified; Y92.009 Unspecified place in unspecified non-institutional (private) residence as the place of occurrence of the external cause; Y99.9 Unspecified external cause status
CPT/HCPCS: 12002; 70450; 72125; 99283; 99284

== ENCOUNTER 2024-04-08 08:34 | Emergency (ER) | payer MEDICARE, OTHER, SELFPAY ==
[2024-04-08 08:38] VITALS: BP 130/61; PULSE 60; RESP 19; TEMP 36.6; O2SAT 97; BMI 29.0
--- NOTE | 2024-04-08 09:07 | ED.WOUNDLAC ---
HPI - Wound/Laceration General Chief Complaint: Wound/Laceration Stated Complaint: Staple removal Time Seen by Provider: 04/08/24 08:58 Source: patient, RN notes reviewed and old records reviewed Mode of arrival: ambulatory Limitations: no limitations History of Present Illness HPI narrative: 88-year-old male with history of AFib on Eliquis presents to the ER for evaluation of his head laceration sustained 1.5 weeks ago. Was seen here on March 31 after he fell and hit the back of his head on a door frame sustaining a laceration requiring [address] head at that time was negative for any acute intracranial hemorrhage or fracture. he has been keeping the wound clean and covered. He denies any issues with bleeding, drainage, redness, concerns for infection. Denies any headaches. He would like the ankur out today. Onset (ago): day(s) (9) Location: scalp Place: home Patient tetanus UTD: Yes Context: accidental Associated symptoms: none Treatments prior to arrival: bandage Related Data Home Medications ?Medication ?Instructions ?Recorded ?Confirmed calcium carbonate 600 mg-vitamin cap PO 11/14/20 12/02/23 D3 5 mcg (200 unit) capsule (Calcium 600 + D(3)) omega-3 fatty acids 1,000 mg 1,000 mg PO DAILY 11/14/20 12/02/23 capsule blood sugar diagnostic #10 ea 02/06/21 12/02/23 apixaban 5 mg tablet (Eliquis) 5 mg PO BID 09/11/23 12/02/23 clopidogrel 75 mg tablet (Plavix) 75 mg PO DAILY 09/11/23 12/02/23 isosorbide mononitrate 30 mg 60 mg PO DAILY 09/11/23 12/02/23 tablet,extended release 24 hr Previous Rx's ?Medication ?Instructions ?Recorded blood sugar diagnostic (OneTouch #100 ea 02/06/21 Ultra Blue Test Strip) alprazolam 0.25 mg tablet 0.25 mg PO DAILY PRN anxiety #14 06/13/23 tabs hydrochlorothiazide 25 mg tablet 25 mg PO DAILY #90 tabs 08/18/23 lisinopril 40 mg tablet 40 mg PO DAILY #90 tabs 08/18/23 nitroglycerin 0.4 mg sublingual 0.4 mg sublingual Q5M PRN chest 09/05/23 tablet (Nitrostat) pain #25 tabs rosuvastatin 20 mg tablet 20 mg PO DAILY #90 tabs 09/20/23 diclofenac sodium 1 % topical gel 4 g topical QID #100 grams 11/21/23 (Voltaren Arthritis Pain) famotidine 20 mg tablet 20 mg PO BEDTIME #90 tabs 11/21/23 spironolactone 25 mg tablet 25 mg PO DAILY #30 tabs 11/21/23 cyclobenzaprine 10 mg tablet 10 mg PO BEDTIME PRN muscle spasm 12/02/23 #30 tabs triamcinolone acetonide 55 mcg 2 spray intranasal DAILY #16.9 mL 12/02/23 nasal spray aerosol (Nasacort) metformin 500 mg tablet 1,000 mg (2 x 500 mg) PO BID #360 12/22/23 tabs felodipine 10 mg tablet,extended 10 mg PO DAILY #90 tabs 12/28/23 release 24 hr pantoprazole 20 mg tablet,delayed 20 mg PO DAILY #90 tabs 03/05/24 release carvedilol 12.5 mg tablet 12.5 mg PO BID 90 days #180 tabs 03/08/24 Allergies Allergy/AdvReac Type Severity Reaction Status Date / Time Sulfa (Sulfonamide Allergy Unknown general Verified 04/08/24 08:40 Antibiotics) sickness Review of Systems Review of Systems: Yes all other systems are reviewed and are negative [facility] Past Medical History Medical History (Updated 04/08/24 @ 09:10 by SHELL Ovalles) Acute effusion of both middle ears Skin cancer of nose Bradycardia, drug induced Bradycardia by electrocardiogram Atrial fibrillation Type 2 diabetes mellitus with hyperglycemia Diabetic nephropathy Hypercholesterolemia GERD (gastroesophageal reflux disease) Anxiety and depression Polymyalgia rheumatica Hypertension Coronary artery disease Surgical History (Updated 06/11/22 @ 09:35 by Jesse Chaudhry MD) History of cataract surgery History of tonsillectomy History of bilateral hip arthroplasty Left inguinal hernia Social History Social History (Updated 06/06/21 @ 12:07 by Jesse Chaudhry MD) Housing: House Alcohol intake: former Patient Tobacco Use Status: Never used Tobacco e-Cigarette/Vaping Use: Never Used Second Hand Smoke Exposure: No Advance Directives: No Advance Directives Information Provided: Yes service: Yes Current occupational status: retired Cognitive needs: No Hearing needs: No Vision needs: Yes Physical Exam Vital Signs: Vital Signs: Last Vital Signs Temp 98 F 04/08/24 08:38 Pulse 60 04/08/24 08:38 Resp 19 04/08/24 08:38 BP 130/61 04/08/24 08:38 Pulse Ox 97 04/08/24 08:38 O2 Del Method Room Air 04/08/24 08:38 BMI result Body Mass Index 29.0 Appearance: Alert. Oriented X3. No acute distress. HEENT: Posterior scalp with a 3 cm vertical linear laceration, [address]. Wound is well approximated and healing appropriately, no surrounding erythema, nontender, no drainage. Respiratory: No respiratory distress. Skin: Skin warm and dry. Normal skin color. Normal skin turgor. No rashes. Extremities: normal inspection Neuro: Oriented X 3. No motor deficit. No sensory deficit. Medical Decision Making Medical Decision Making MDM Narrative: 88-year-old male presenting for re-evaluation of his head laceration. He was initially seen here on March 31 for mechanical fall sustaining a laceration of the back of his head requiring 7 ankur for closure. Denies any issues with wound healing, bleeding, headaches. On examination the wound appears to be healing appropriately. No concerns for infection. Wound care discussed with the patient. Seven ankur were removed without issue. Further wound care and scar prevention were discussed with the patient. He is stable for discharge home. Differential Diagnosis Differential Diagnoses: The differential diagnosis associated with the presentation includes Delayed wound healing, appropriate wound healing, wound infection External Record Review External record reviewed: Outpatient record, Prior outpatient labs and Prior outpatient radiology Prescription Management I considered prescription management with: Pain Medication and Antibiotic Chronic Conditions Patient?s care impacted by: Other ( AFib) Procedures Procedure Narrative Procedure Narrative: Staple removal: Posterior scalp was cleansed with alcohol. Using a staple removal kit, all 7 ankur were removed from the wound successfully. Wound is well approximated without any evidence of dehiscence or delayed wound healing. No active bleeding or signs of infection. Patient tolerated procedure well. Critical Care Time Critical Care Time Critical Care Time: No Discharge Plan Discharge Clinical Impression: Laceration of head Qualifiers: Encounter type: subsequent encounter Location of open wound of head: scalp Foreign body presence: without foreign body Qualified Code(s): S01.01XD - Laceration without foreign body of scalp, subsequent encounter Patient Disposition: Home, Self-Care Instructions: Staple Care (ED), Stitches Removal (ED) Additional Instructions: 7 ankur were removed and the wound is healing well recommend over the counter Mederma scar ointment to help prevent scarring follow up with your doctor as needed Prescriptions: No Action (DME) blood sugar diagnostic Strip See Rx Instructions .ROUTE .MEDSUPPLY Qty: 10 Rx Instructions: As directed (DME) OneTouch Ultra Blue Test Strip Strip See Rx Instructions .ROUTE .MEDSUPPLY Qty: 100 3RF Rx Instructions: As directed check the blood sugars once a day hydrochlorothiazide 25 mg tablet 25 mg PO DAILY Qty: 90 3RF lisinopril 40 mg tablet 40 mg PO DAILY Qty: 90 3RF nitroglycerin [Nitrostat] 0.4 mg tablet, sublingual 0.4 mg sublingual Q5M PRN (Reason: chest pain) Qty: 25 0RF Rx Instructions: do not exceed 3 doses per episode rosuvastatin 20 mg tablet 20 mg PO DAILY Qty: 90 3RF metformin 500 mg tablet 1,000 mg PO BID Qty: 360 3RF felodipine 10 mg tablet extended release 24 hr 10 mg PO DAILY Qty: 90 3RF pantoprazole 20 mg tablet,delayed release (DR/EC) 20 mg PO DAILY Qty: 90 1RF carvedilol 12.5 mg tablet 12.5 mg PO BID 90 Days Qty: 180 2RF Rx Instructions: must administer with a meal/food omega-3 fatty acids 1,000 mg capsule 1,000 mg PO DAILY Calcium 600 + D(3) 600 mg calcium- 200 unit capsule PO alprazolam 0.25 mg tablet 0.25 mg PO DAILY PRN (Reason: anxiety) Qty: 14 0RF triamcinolone acetonide [Nasacort] 55 mcg aerosol,spray 2 spray intranasal DAILY Qty: 16.9 2RF Rx Instructions: administer into each nostril cyclobenzaprine 10 mg tablet 10 mg PO BEDTIME PRN (Reason: muscle spasm) Qty: 30 0RF isosorbide mononitrate 30 mg tablet extended release 24 hr 60 mg PO DAILY Eliquis 5 mg tablet 5 mg PO BID clopidogrel [Plavix] 75 mg tablet 75 mg PO DAILY spironolactone 25 mg tablet 25 mg PO DAILY Qty: 30 0RF famotidine 20 mg tablet 20 mg PO BEDTIME Qty: 90 0RF diclofenac sodium [Voltaren Arthritis Pain] 1 % gel 4 g topical QID Qty: 100 3RF Rx Instructions: apply to single knee, ankle, foot; for foot includes sole/toes/top of foot Print Language: Kinyarwanda
[2024-04-08 09:22] VITALS: BP 172/69; PULSE 58; RESP 14; TEMP 36.6; O2SAT 98
== END 2024-04-08 09:23 | disposition home or self-care (01) ==
PROVIDERS: Emergency Provider Emergency Medicine; PCP Internal Medicine
DX: S01.01XA Laceration without foreign body of scalp, initial encounter (principal); Z48.02 Encounter for removal of sutures; I48.91 Unspecified atrial fibrillation; W01.10XA Fall on same level from slipping, tripping and stumbling with subsequent striking against unspecified object, initial encounter; Y93.9 Activity, unspecified; Y92.9 Unspecified place or not applicable; Y99.8 Other external cause status; Z79.01 Long term (current) use of anticoagulants; Z79.899 Other long term (current) drug therapy
CPT/HCPCS: 99282; 99284

== ENCOUNTER 2024-05-26 13:46 | Outpatient (REF) | payer SELFPAY | END 2024-05-26 13:47 | disposition home or self-care (01) | LOC: HO.HAP 13:46 | PROVIDERS: Visit Provider Internal Medicine | DX: Z13.89 Encounter for screening for other disorder (principal) ==

== ENCOUNTER 2024-06-16 11:16 | Outpatient (REF) | payer SELFPAY ==
--- NOTE | 2024-06-16 13:27 | MHC.AU.HA3 ---
Hearing Instrument Follow-Up- Binaural Date of Visit: 06/16/24 Right Ear: Pa, Model, Color, Serial Number: Nirmal Gold [id number] SN: [id number] Color: Velvet Black Magazine Editor Repair Warranty: 10/20/2024 Magazine Editor Loss and Damage Warranty: 10/20/2024 [facility] Service Plan: Battery Size: 13 Instructional Coach/Slim Tube: 1M Earmold/Dome/CShell/SlimTip:Small vented dome (no retention tail) Type of Wax Guard: CeruShield Dispensed By: [facility] Date of Fittin07/27/2021 Left Ear: Pa, Model, Color, Serial Number: Nirmal Gold [id number] SN: [id number] Color: Velvet Black Magazine Editor Repair Warranty: 10/20/2024 Magazine Editor Loss and Damage Warranty: 10/20/2024 [facility] Service Plan: Battery Size: 13 Instructional Coach/Slim Tube: 1M Earmold/Dome/CShell/SlimTip: Small vented dome (no retention tail) Type of Wax Guard: CeruShield Dispensed By: [facility] Date of Fittin07/27/2021 Follow-Up Summary: George picked up his repaired hearing aids and returned his loaners. Paired aids to phone and confirmed phone calls streamed to aids. He is aware of charges after his warranty ends in October. He inquired about new hearing aids, stating he has always been given an exception to have his [facility] billed directly, and would require this again to order aids from our office. Per Abigail, we can bill [employer] directly for him when he is ready for new aids. He plans to request a PCP order for an updated hearing test soon. Recommendations: Recommendations: Hearing instrument follow-up or maintenance as needed. Diagnosis Code(s): Primary Diagnosis: H90.3 Bilateral Sensorineural Hearing Loss Signature: Provider: Tavo Will, [facility]
== END 2024-06-16 11:17 | disposition home or self-care (01) ==
LOC: HO.HAP 11:16
PROVIDERS: Visit Provider Internal Medicine
DX: Z13.89 Encounter for screening for other disorder (principal)

== ENCOUNTER 2024-06-18 08:46 | Outpatient (AMB) | payer MEDICARE, OTHER, SELFPAY ==
[2024-06-18 08:53] VITALS: BP 152/60; PULSE 63; O2SAT 97; BMI 27.4
--- NOTE | 2024-06-18 08:53 | MHC.PC.OV ---
Vital Signs 06/18/24 08:53 06/18/24 09:17 Height 5 ft 8 in Weight 180 lb BMI 27.4 BP 152/60 H 140/60 H Blood Pressure Location Lt brachial Lt brachial Position Sitting Sitting Pulse 63 Pulse Source Pulse Oximeter Pulse Oximetry (%) 97 Oxygen Delivery Method Room Air Intake Visit Reasons: pe Allergies Sulfa (Sulfonamide Antibiotics) Allergy (Unknown, Verified 06/18/24 09:01) general sickness Medication List - Last Reconciled 06/18/24 by Jesse Chaudhry MD apixaban (Eliquis) 5 mg PO BID blood sugar diagnostic (Kinetic SocialTouch Ultra Blue Test Strip) As directed check the blood sugars once a day blood sugar diagnostic As directed calcium carbonate-vitamin D3 600 mg-5 mcg (200 unit) (Calcium 600 + D(3)) caps PO carvedilol 12.5 mg PO BID 90 days clopidogrel (Plavix) 75 mg PO DAILY diclofenac sodium 1% (Voltaren Arthritis Pain) 4 grams topical QID felodipine ER 10 mg PO DAILY hydrochlorothiazide 25 mg PO DAILY isosorbide mononitrate ER 60 mg PO DAILY lisinopril 40 mg PO DAILY metformin 1,000 mg (2 x 500 mg) PO BID nitroglycerin (Nitrostat) 0.4 mg sublingual Q5M PRN omega-3 fatty acids 1,000 mg PO DAILY pantoprazole 20 mg PO DAILY rosuvastatin 20 mg PO DAILY spironolactone 25 mg PO DAILY triamcinolone acetonide (Nasacort) 2 sprays intranasal DAILY Tobacco use date assessed: 02/26/24 Fall risk assessment: No Falls in past year Last assessed Fall Risk: 06/18/24 Dental Screening Dental Screen Date: 06/18/24 Did you have a dental visit in the last 12 months?: Yes Did you have a dental problem in the last 6 months where you did not have access to dental care?: No Was dental information given to patient?: Patient has dentist HPI pe HPI Details 88-year-old male with coronary artery disease hypertension GERD hypercholesterolemia diabetes mellitus atrial fibrillation coming in for physical exam last seen in January 2024. Review of the notes in March 2024 sustained a laceration on the head from an injury hitting a door frame [address] scan done negative patient is up-to-date with eye exam [facility] dry eye syndrome no retinopathy. [facility] Medical History (Updated 06/18/24 @ 09:35 by Jesse Chaudhry MD) Anxiety and depression Acute effusion of both middle ears Skin cancer of nose Bradycardia, drug induced Bradycardia by electrocardiogram Atrial fibrillation Type 2 diabetes mellitus with hyperglycemia Diabetic nephropathy Hypercholesterolemia GERD (gastroesophageal reflux disease) Polymyalgia rheumatica Hypertension Coronary artery disease Surgical History (Updated 06/11/22 @ 09:35 by Jesse Chaudhry MD) History of cataract surgery History of tonsillectomy History of bilateral hip arthroplasty Left inguinal hernia Social History (Updated 06/06/21 @ 12:07 by Jesse Chaudhry MD) Housing: House Alcohol intake: former Patient Tobacco Use Status: Never used Tobacco e-Cigarette/Vaping Use: Never Used Second Hand Smoke Exposure: No service: Yes Current occupational status: retired Cognitive needs: No Hearing needs: No Vision needs: Yes Questionnaire Thrive Questionnaire Date Thrive assessed: 02/26/24 AUDIT C Alcohol Use Questionnaire (AUDIT-C) 1. How often do you have a drink containing alcohol?: Never 2. How many drinks containing alcohol do you have on a typical day when you are drinking?: 1 or 2 (0) 3. How often do you have six or more drinks on one occasion?: Never Total Score: 0 CAROLINA-7 AMB Questionnaire CAROLINA-7 Date CAROLINA - 7 assessed: 02/26/24 Feeling nervous, anxious, or on edge: 0 = Not at all Not being able to stop or control worryin = Not at all Worrying too much about different things: 0 = Not at all Trouble relaxin = Not at all Being so restless that it is hard to sit still: 0 = Not at all Becoming easily annoyed or irritable: 0 = Not at all Feeling afraid as if something awful might happen: 0 = Not at all Total CAROLINA-7 score (0-4 normal; 5-9 mild; 10-14 moderate; 15-21 severe): 0 Source: Developed by Drs. Yaw Arriaga, Jelena Eric, Seth Jaime and colleagues, with an educational lesley from [employer] CAR[place]INA-7 Assessment Billing CAR[place]INA-7 Assessment Tool: CAR[place]INA-7 Assessment 11690 Review of Systems Const Denies poor appetite and Denies weakness Eyes Denies no additional complaints ENT Reports Normal hearing present, Denies dizziness, Denies nasal congestion, Denies tinnitus and Denies sore throat Card Denies chest pain, Denies syncope, Denies rapid heart rate and Denies dyspnea Resp Denies cough and Denies dyspnea GI Denies change in stool character, Reports constipation, Denies diarrhea, Denies nausea and Denies vomiting Denies dysuria and Denies urinary frequency Neuro Reports Normal hearing present, Denies confusion, Denies dizziness, Denies syncope and Denies weakness Psych Denies confusion Physical exam (Primary Care) Vital Signs: Last Vital Signs Pulse 63 06/18/24 08:53 BP 152/60 H 06/18/24 08:53 Pulse Ox 97 06/18/24 08:53 Oxygen Delivery Method Room Air 06/18/24 08:53 BMI result Body Mass Index 27.4 Tobacco/Smoking Status: Tobacco use Status Tobacco use date assessed 02/26/24 06/18/24 08:56 Patient Tobacco Use Status Never used Tobacco 06/18/24 08:56 e-Cigarette/Vaping Use Never Used 06/18/24 08:56 Thrive Assessment: Date of Thrive Assessment Date Thrive assessed 02/26/24 06/18/24 08:56 Const General: No confusion Orientation/consciousness: No confusion HENMT Head: Yes normocephalic Ears: external ears normal and TM's normal bilaterally Face and sinus: Yes normal facial exam Mouth: moist mucous membranes Throat: Yes tonsils normal Eyes Conjunctivae: conjunctivae normal Pupils: Equal, round and reactive pupils present and Pupil accommodation reflex normal Direct Ophthalmoscopy: normal light reflex Neck Neck: No lymphadenopathy Thyroid: Thyroid normal Chest Chest palpation & inspection: normal inspection of the chest Resp Effort & Inspection: normal respiratory effort and no audible wheezes Auscultation: clear to auscultation bilaterally, no crackles, no wheezes and lung sounds not diminished Cardio Rate: regular rate Rhythm: regular rhythm Peripheral pulses: radial pulses present and dorsalis pedis present GI Other: guaiac neg prostate N Palpation (GI): no masses Auscultation: normal bowel sounds and normoactive bowel sounds Male General Exam: Yes normal external exam Skin Other: feet rash on the heelp General skin exam: no rashes or lesions noted Neuro General: No confusion Cranial nerves: Yes Equal, round and reactive pupils present and Yes Normal hearing present Cognition (Neuro): normal cognition Gait exam (Neuro): Normal gait present Motor exam (neuro): 5/5 motor strength present throughout Deep tendon reflexes (DTR's): Right brachioradialis reflex intensity grade: 2+, Left brachioradialis reflex intensity grade: 2+, Right patellar reflex intensity grade: 2+ and Left patellar reflex intensity grade: 2+ Extrem General: No edema Results AMB Hemoglobin A1c AMB Hemoglobin A1c 7.2 % Last Edit by ESPINOZA Gold on 06/18/24 09:09 Results Reviewed Results Reviewed: Laboratory Last Values Hgb A1c (Clinic) 7.2 % (4.0-6.0) H 06/18/24 08:58 Assessment and Plan Assessment & Plan (1) Annual physical exam: Code(s): Z00.00 - Encounter for general adult medical examination without abnormal findings Plan: Patient is advised to eat healthy, keep well hydrated, keep active and have adequate sleep. (2) Atrial fibrillation: Comment: Paroxysmal 2014 Dr. Gong Code(s): I48.91 - Unspecified atrial fibrillation Plan: Continue with anticoagulation with Eliquis 5 mg twice a day and blood work renal twice a day year. (3) Type 2 diabetes mellitus with hyperglycemia: Comment: eye Dr. Adam Mad[place] Code(s): E11.65 - Type 2 diabetes mellitus with hyperglycemia Qualifiers: Diabetes mellitus brinell tester insulin use: without brinell tester use Qualified Code(s): E11.65 - Type 2 diabetes mellitus with hyperglycemia Plan: Decrease the amount of carbohydrate intake, pasta, bread, rice and potatoes are all sugar and that is aside from all the sweet stuff, remember that fruits are good but they are Sweet also. Hemoglobin A1c goal of less than 7.0 on metformin a 1000 mg twice a day only (4) Coronary artery disease: Comment: RCA stent 2007 [place] of LAD March 2015 partial dissection of LAD post procedure Code(s): I25.10 - Atherosclerotic heart disease of [place] coronary artery without angina pectoris Qualifiers: Coronary Disease-Associated Artery/Lesion type: [place] artery [place] vs. transplanted heart: [place] heart Associated angina: without angina Qualified Code(s): I25.10 - Atherosclerotic heart disease of [place] coronary artery without angina pectoris Plan: Control the cholesterol, weight, blood pressure, diabetes continue with anticoagulation and clopidogrel (5) Hypertension: Code(s): I10 - Essential (primary) hypertension Qualifiers: Hypertension type: essential hypertension Qualified Code(s): I10 - Essential (primary) hypertension Plan: Continue with blood pressure medication. Decrease salt intake and exercise takes carvedilol 12.5 mg twice a day felodipine 10 mg once a day hydrochlorothiazide 25 mg once a day lisinopril 40 mg once a day and spironolactone 25 mg once a day (6) GERD (gastroesophageal reflux disease): Code(s): K21.9 - Gastro-esophageal reflux disease without esophagitis Qualifiers: Esophagitis presence: without esophagitis Qualified Code(s): K21.9 - Gastro-esophageal reflux disease without esophagitis Plan: Avoid the foods that causes that usually spicy foods, tomato products, juices, coffee, soda and foods that your sensitive to. After eating do not lie down, allow 3-4 hours before in lie down. And keep the head of bed above 30 degrees to avoid the acid from going up. (7) Diabetic nephropathy: Code(s): E11.21 - Type 2 diabetes mellitus with diabetic nephropathy Plan: Continue with lisinopril 40 mg once a day (8) Generalized anxiety disorder: Code(s): F41.1 - Generalized anxiety disorder Plan: Stable on alprazolam as needed (9) Hypercholesterolemia: Code(s): E78.00 - Pure hypercholesterolemia, unspecified Plan: Avoid fried foods, chicken skin, eggs, butter margarine, pastries and meat. Be it pork or beef they have a lot of cholesterol LDL goal of less than 70 on rosuvastatin 20 mg once a day (10) Anemia: Code(s): D64.9 - Anemia, unspecified (11) Tinea pedis: Code(s): B35.3 - Tinea pedis Orders: Orders AMB Hemoglobin A1c Today E11.65 - Type 2 diabetes mellitus with hyperglycemia Complete Blood Count Auto Diff Today D64.9 - Anemia, unspecified Referrals Speech and Hearing Referral H91.90 - Unspecified hearing loss, unspecified ear Medications: New ketoconazole 2% 1 appl topical BID 60 grams 0RF B35.3 - Tinea pedis empagliflozin (Jardiance) 10 mg PO DAILY 30 tabs 3RF E11.65 - Type 2 diabetes mellitus with hyperglycemia Coding Level of Care Code Est Pt Prev Care >65y(01798) Diagnoses Annual physical exam Z00.00 Atrial fibrillation I48.91 Type 2 diabetes mellitus with hyperglycemia, without long-term current use of insulin E11.65 Diabetes mellitus brinell tester insulin use: without brinell tester use Coronary artery disease involving [place] coronary artery of [place] heart without angina pectoris I25.10 Coronary Disease-Associated Artery/Lesion type: [place] artery [place] vs. transplanted heart: [place] heart Associated angina: without angina Essential hypertension I10 Hypertension type: essential hypertension Gastroesophageal reflux disease without esophagitis K21.9 Esophagitis presence: without esophagitis Diabetic nephropathy E11.21 Generalized anxiety disorder F41.1 Hypercholesterolemia E78.00 Anemia D64.9 Tinea pedis B35.3 Additional Codes CAR[place]INA-7 Assessment Billing - CAR[place]INA-7 Assessment Tool: ACROLINA-7 Assessment [id number] ([id number])
[2024-06-18 09:17] VITALS: BP 140/60
== END 2024-06-18 09:42 | disposition home or self-care (01) ==
PROVIDERS: PCP Internal Medicine; Visit Provider Internal Medicine
DX: Z00.00 Encounter for general adult medical examination without abnormal findings (principal); I48.91 Unspecified atrial fibrillation; E11.65 Type 2 diabetes mellitus with hyperglycemia; E11.21 Type 2 diabetes mellitus with diabetic nephropathy; I25.10 Atherosclerotic heart disease of native coronary artery without angina pectoris; I10 Essential (primary) hypertension; K21.9 Gastro-esophageal reflux disease without esophagitis; F41.1 Generalized anxiety disorder; E78.00 Pure hypercholesterolemia, unspecified; D64.9 Anemia, unspecified; B35.3 Tinea pedis
CPT/HCPCS: 83036; 99397

== ENCOUNTER 2024-06-28 20:16 | Emergency (ER) | payer MEDICARE, OTHER, SELFPAY ==
--- NOTE | ~2024-06-28 | CT_ITS ---
Examination: CT brain and CT cervical spine without contrast. CLINICAL INDICATION: Fall and head strike. COMPARISON: CT brain and cervical spine 03/31/2024. TECHNIQUE: 5 mm thin axial and reformatted 2 mm thin sagittal and coronal images of brain were obtained. Subsequently axial 3 mm thin and reformatted 2 mm thin sagittal and coronal images of cervical spine were obtained. DLP [id number]. This CT examination was performed using dose optimization technique as appropriate, variously including the following: Automated exposure control Adjustment of MA and/or KV according to patient size(this includes techniques or standardized protocols for targeted exams where dose is matched to indication/reason for exam; extremities or head. Use of iterative reconstruction techniques. FINDINGS: Brain: There is no acute intra-axial, extra-axial bleed, masses or midline shift. There is no acute infarction evolution. The lateral ventricles are symmetrical in size and configuration but moderately enlarged. The great to white matter differentiation is maintained normal. Bone windows reveal no calvarial abnormality. There is a right posterior parietal lobe soft tissue swelling and likely laceration. The paranasal sinuses are well-aerated and clear. Cervical spine: There is maintained cervical lordosis. There is loss of C5-C6 and C6-C7 disc height with and mild ventral and posterior cervical spondylosis. Grade 1 anterolisthesis C4 over C5 is noted. There is moderate left C4-C5 and C5-C6 facet joint arthropathy and hypertrophy. No visible acute fracture, dislocation subluxation seen. The prevertebral and paravertebral soft tissues are normal. CT/CT cervical spine wo IV con IMPRESSION: No acute intracranial process seen. There is a right posterior parietal scalp soft tissue swelling and likely laceration. There is overlying soft tissue bandage. Grade 1 anterolisthesis C4 over C5. Degenerative disc changes with spondylosis C5-C6 and C6-C7 disc levels. No visible acute fracture, dislocation or subluxation seen.
[2024-06-28 20:21] VITALS: BP 172/70; PULSE 78; RESP 20; TEMP 37.1; O2SAT 96; BMI 28.3
--- NOTE | 2024-06-28 20:25 | ED.HEATRA ---
HPI - Head Injury General Chief complaint: Head Injury Stated complaint: head lacerations on thinners Time Seen by Provider: 06/28/24 21:20 Related Data Home Medications ?Medication ?Instructions ?Recorded ?Confirmed calcium carbonate 600 mg-vitamin cap PO 11/14/20 06/18/24 D3 5 mcg (200 unit) capsule (Calcium 600 + D(3)) omega-3 fatty acids 1,000 mg 1,000 mg PO DAILY 11/14/20 06/18/24 capsule blood sugar diagnostic #10 ea 02/06/21 06/18/24 apixaban 5 mg tablet (Eliquis) 5 mg PO BID 09/11/23 06/18/24 clopidogrel 75 mg tablet (Plavix) 75 mg PO DAILY 09/11/23 06/18/24 isosorbide mononitrate 30 mg 60 mg PO DAILY 09/11/23 06/18/24 tablet,extended release 24 hr Previous Rx's ?Medication ?Instructions ?Recorded blood sugar diagnostic (OneTouch #100 ea 02/06/21 Ultra Blue Test Strip) hydrochlorothiazide 25 mg tablet 25 mg PO DAILY #90 tabs 08/18/23 lisinopril 40 mg tablet 40 mg PO DAILY #90 tabs 08/18/23 nitroglycerin 0.4 mg sublingual 0.4 mg sublingual Q5M PRN chest 09/05/23 tablet (Nitrostat) pain #25 tabs rosuvastatin 20 mg tablet 20 mg PO DAILY #90 tabs 09/20/23 diclofenac sodium 1 % topical gel 4 g topical QID #100 grams 11/21/23 (Voltaren Arthritis Pain) spironolactone 25 mg tablet 25 mg PO DAILY #30 tabs 11/21/23 triamcinolone acetonide 55 mcg 2 spray intranasal DAILY #16.9 mL 12/02/23 nasal spray aerosol (Nasacort) metformin 500 mg tablet 1,000 mg (2 x 500 mg) PO BID #360 12/22/23 tabs felodipine 10 mg tablet,extended 10 mg PO DAILY #90 tabs 12/28/23 release 24 hr pantoprazole 20 mg tablet,delayed 20 mg PO DAILY #90 tabs 03/05/24 release carvedilol 12.5 mg tablet 12.5 mg PO BID 90 days #180 tabs 03/08/24 empagliflozin 10 mg tablet 10 mg PO DAILY #30 tabs 06/18/24 (Jardiance) ketoconazole 2 % topical cream 1 appl topical BID #60 grams 06/18/24 Allergies Allergy/AdvReac Type Severity Reaction Status Date / Time Sulfa (Sulfonamide Allergy Unknown general Verified 06/28/24 20:22 Antibiotics) sickness [facility] Past Medical History Medical History Anxiety and depression Acute effusion of both middle ears Skin cancer of nose Bradycardia, drug induced Bradycardia by electrocardiogram Atrial fibrillation Type 2 diabetes mellitus with hyperglycemia Diabetic nephropathy Hypercholesterolemia GERD (gastroesophageal reflux disease) Polymyalgia rheumatica Hypertension Coronary artery disease Surgical History History of cataract surgery History of tonsillectomy History of bilateral hip arthroplasty Left inguinal hernia Social History Social History Housing: House Alcohol intake: former Patient Tobacco Use Status: Never used Tobacco Smoked in Last 30 Days: No e-Cigarette/Vaping Use: Never Used Second Hand Smoke Exposure: No Use of substances other than those prescribed or required for medical reasons: No Advance Directives: No Advance Directives Information Provided: No service: Yes Current occupational status: retired Cognitive needs: No Hearing needs: No Vision needs: Yes Physical Exam Vital Signs: Vital Signs: Last Vital Signs Temp 98.0 F 06/28/24 21:25 Pulse 75 06/28/24 21:25 Resp 16 06/28/24 21:25 BP 161/67 H 06/28/24 21:25 Pulse Ox 97 06/28/24 21:25 O2 Del Method Room Air 06/28/24 21:25 BMI result Body Mass Index 28.3 Course Course Course Narrative: This is an RME: Additional HPI, ROS, PE not included below will be deferred to primary provider. RME assessment and note performed by: Eugenie Gandhi PA-C This is a 88-year-old male, with history of AFib on Eliquis presents to the ER for evaluation of head injury which occurred about 1 hour ago. Patient states that he was bending over and fell, striking his posterior head. He states that he was ?stunned? but denies loss of consciousness. Denies any current pain. He has a 4 cm laceration noted to his posterior scalp. No active bleeding. Plan CT scan head and neck Medications Administered Discontinued Medications Generic Name Dose Route Start Last Admin Trade Name Nima PRN Reason Stop Dose Admin Lidocaine HCl 1 appl 06/28/24 21:24 06/28/24 21:36 Lidocaine 4 % Cream Kit TOPICAL 06/28/24 21:25 1 appl ONCE ONE Administration Protocol Medical Decision Making Lab Data 06/28/24 21:52 06/28/24 21:52 Labs: Lab Results 06/28/24 Range/Units 21:52 WBC 8.3 (4.8-10.8) X10*3/uL RBC 4.00 L (4.60-5.80) X10*6/uL Hgb 11.6 L (14.0-18.0) g/dl Hct 33.7 L (42.0-52.0) % MCV 84.3 (80.0-98.0) fL MCH 29.0 (27.0-33.0) pg MCHC 34.4 (31.0-36.0) g/dl RDW 14.2 (11.0-16.0) % Plt Count 215 (160-400) X10*3/uL MPV 8.5 L (9.4-12.4) fL Immature Gran % (Auto) 0.4 (0.0-0.4) % Neut % (Auto) 76.5 H (45-73) % Lymph % (Auto) 12.5 L (20-40) % [place] % (Auto) 6.9 (2-11) % Eos % (Auto) 3.2 (0-4) % Baso % (Auto) 0.5 (0-2) % Lymph # (Auto) 1.0 L (1.2-4.9) X10*3/uL [place] # (Auto) 0.6 (0.1-1.2) X10*3/uL Eos # (Auto) 0.3 (0.0-0.4) X10*3/uL Baso # (Auto) 0.0 (0.0-0.2) X10*3/uL Abs Immat Gran (auto) 0.03 (0.00-0.03) X10*3/uL Absolute Neuts (auto) 6.4 (2.0-8.3) x10*3/uL Absolute Nucleated RBC 0.000 (0.0-0.012) X10*3/uL Nucleated RBC % (auto) 0.0 (0.0-0.2) /100WBC Sodium 137 (135-145) mmol/L Potassium 5.0 (3.3-5.1) mmol/L Chloride 106 (96-108) mmol/L Carbon Dioxide 20 L (22-29) mmol/L Anion Gap 16 (12-20) BUN 34 H (9-16) mg/dL Creatinine 1.23 (0.5-1.4) mg/dL Estim Creat Clear Calc 44.1 Estimated GFR 56 Random Glucose 185 H (60-115) mg/dL Calcium 9.2 (8.4-10.2) mg/dL Discharge Plan Discharge Clinical Impression: Head injury, Laceration of scalp Patient Disposition: Home, Self-Care Instructions: Laceration (DC), Head Injury (ED) Prescriptions: No Action (DME) blood sugar diagnostic Strip See Rx Instructions .ROUTE .MEDSUPPLY Qty: 10 Rx Instructions: As directed (DME) OneTouch Ultra Blue Test Strip Strip See Rx Instructions .ROUTE .MEDSUPPLY Qty: 100 3RF Rx Instructions: As directed check the blood sugars once a day hydrochlorothiazide 25 mg tablet 25 mg PO DAILY Qty: 90 3RF lisinopril 40 mg tablet 40 mg PO DAILY Qty: 90 3RF nitroglycerin [Nitrostat] 0.4 mg tablet, sublingual 0.4 mg sublingual Q5M PRN (Reason: chest pain) Qty: 25 0RF Rx Instructions: do not exceed 3 doses per episode rosuvastatin 20 mg tablet 20 mg PO DAILY Qty: 90 3RF metformin 500 mg tablet 1,000 mg PO BID Qty: 360 3RF felodipine 10 mg tablet extended release 24 hr 10 mg PO DAILY Qty: 90 3RF pantoprazole 20 mg tablet,delayed release (DR/EC) 20 mg PO DAILY Qty: 90 1RF carvedilol 12.5 mg tablet 12.5 mg PO BID 90 Days Qty: 180 2RF Rx Instructions: must administer with a meal/food omega-3 fatty acids 1,000 mg capsule 1,000 mg PO DAILY Calcium 600 + D(3) 600 mg calcium- 200 unit capsule PO ketoconazole 2 % cream 1 appl topical BID Qty: 60 0RF Jardiance 10 mg tablet 10 mg PO DAILY Qty: 30 3RF triamcinolone acetonide [Nasacort] 55 mcg aerosol,spray 2 spray intranasal DAILY Qty: 16.9 2RF Rx Instructions: administer into each nostril isosorbide mononitrate 30 mg tablet extended release 24 hr 60 mg PO DAILY Eliquis 5 mg tablet 5 mg PO BID clopidogrel [Plavix] 75 mg tablet 75 mg PO DAILY spironolactone 25 mg tablet 25 mg PO DAILY Qty: 30 0RF diclofenac sodium [Voltaren Arthritis Pain] 1 % gel 4 g topical QID Qty: 100 3RF Rx Instructions: apply to single knee, ankle, foot; for foot includes sole/toes/top of foot Referrals: Jesse Chaudhry MD [Primary Care Provider] - 2 days (Staple removal in approximately 5-7 days.) Interventions: ED Discharge Assessment Last Done: 06/28/24 23:19 Print Language: [place] Citizen
[2024-06-28 21:25] VITALS: BP 161/67; PULSE 75; RESP 16; TEMP 36.7; O2SAT 97
[2024-06-28] MEDS: Lidocaine 4 % Cream KIT 1 APPL TOPICAL (21:36)
--- NOTE | 2024-06-28 21:39 | ED.HEATRA ---
HPI - Head Injury General Chief complaint: Head Injury Stated complaint: head lacerations on thinners Time Seen by Provider: 06/28/24 21:20 History of Present Illness HPI Narrative: Patient is an 88-year-old male with a history of coronary artery disease, diabetes, atrial fibrillation presented today after an accidental fall. Patient was trying to get up and then slipped fell hit the back of his head. There was no loss of consciousness there is no nausea no vomiting no focal weakness. Came to the ED as there is a wound to the back of his head. No chest pain no shortness of breath no focal weakness. Patient has been compliant with his medication. Related Data Home Medications ?Medication ?Instructions ?Recorded ?Confirmed calcium carbonate 600 mg-vitamin cap PO 11/14/20 06/18/24 D3 5 mcg (200 unit) capsule (Calcium 600 + D(3)) omega-3 fatty acids 1,000 mg 1,000 mg PO DAILY 11/14/20 06/18/24 capsule blood sugar diagnostic #10 ea 02/06/21 06/18/24 apixaban 5 mg tablet (Eliquis) 5 mg PO BID 09/11/23 06/18/24 clopidogrel 75 mg tablet (Plavix) 75 mg PO DAILY 09/11/23 06/18/24 isosorbide mononitrate 30 mg 60 mg PO DAILY 09/11/23 06/18/24 tablet,extended release 24 hr Previous Rx's ?Medication ?Instructions ?Recorded blood sugar diagnostic (OneTouch #100 ea 02/06/21 Ultra Blue Test Strip) hydrochlorothiazide 25 mg tablet 25 mg PO DAILY #90 tabs 08/18/23 lisinopril 40 mg tablet 40 mg PO DAILY #90 tabs 08/18/23 nitroglycerin 0.4 mg sublingual 0.4 mg sublingual Q5M PRN chest 09/05/23 tablet (Nitrostat) pain #25 tabs rosuvastatin 20 mg tablet 20 mg PO DAILY #90 tabs 09/20/23 diclofenac sodium 1 % topical gel 4 g topical QID #100 grams 11/21/23 (Voltaren Arthritis Pain) spironolactone 25 mg tablet 25 mg PO DAILY #30 tabs 11/21/23 triamcinolone acetonide 55 mcg 2 spray intranasal DAILY #16.9 mL 12/02/23 nasal spray aerosol (Nasacort) metformin 500 mg tablet 1,000 mg (2 x 500 mg) PO BID #360 12/22/23 tabs felodipine 10 mg tablet,extended 10 mg PO DAILY #90 tabs 12/28/23 release 24 hr pantoprazole 20 mg tablet,delayed 20 mg PO DAILY #90 tabs 03/05/24 release carvedilol 12.5 mg tablet 12.5 mg PO BID 90 days #180 tabs 03/08/24 empagliflozin 10 mg tablet 10 mg PO DAILY #30 tabs 06/18/24 (Jardiance) ketoconazole 2 % topical cream 1 appl topical BID #60 grams 06/18/24 Allergies Allergy/AdvReac Type Severity Reaction Status Date / Time Sulfa (Sulfonamide Allergy Unknown general Verified 06/28/24 20:22 Antibiotics) sickness Review of Systems Review of Systems: Positive head injury Yes all other systems are reviewed and are negative [facility] Past Medical History Attestation statement: The following information was validated with the patient. Medical History Anxiety and depression Acute effusion of both middle ears Skin cancer of nose Bradycardia, drug induced Bradycardia by electrocardiogram Atrial fibrillation Type 2 diabetes mellitus with hyperglycemia Diabetic nephropathy Hypercholesterolemia GERD (gastroesophageal reflux disease) Polymyalgia rheumatica Hypertension Coronary artery disease Surgical History History of cataract surgery History of tonsillectomy History of bilateral hip arthroplasty Left inguinal hernia Social History Social History Housing: House Alcohol intake: former Patient Tobacco Use Status: Never used Tobacco Smoked in Last 30 Days: No e-Cigarette/Vaping Use: Never Used Second Hand Smoke Exposure: No Use of substances other than those prescribed or required for medical reasons: No Advance Directives: No Advance Directives Information Provided: No service: Yes Current occupational status: retired Cognitive needs: No Hearing needs: No Vision needs: Yes Physical Exam Vital Signs: Vital Signs: Last Vital Signs Temp 98.0 F 06/28/24 21:25 Pulse 75 06/28/24 21:25 Resp 16 06/28/24 21:25 BP 161/67 H 06/28/24 21:25 Pulse Ox 97 06/28/24 21:25 O2 Del Method Room Air 06/28/24 21:25 BMI result Body Mass Index 28.3 Appearance: Alert. Oriented X3. No acute distress. Positive laceration to the occipital area approximately 4 cm in size. Eyes: Pupils equal, round and reactive to light. ENT: Pharynx normal. No midface tenderness no malocclusion. Neck: Normal inspection. Neck supple. No lymph nodes noted. No crepitus. There is no posterior C-spine tenderness elicited on palpation CVS: Normal heart rate and rhythm. Pulses normal. Normal S1 and S2 Respiratory: No respiratory distress. Breath sounds normal. No Wheezing. No rales Abdomen: Soft and nontender. No rigidity. No distention. good BS x4 Skin: Skin warm and dry. Normal skin color. Normal skin turgor. Extremities: No lower extremity edema. Neurovascular intact to all extremities. No Lacerations. No Rash Neuro: Oriented X 3. No motor deficit. No sensory deficit. Moving all extermities. No slurred speech Medications Administered Discontinued Medications Generic Name Dose Route Start Last Admin Trade Name Nima PRN Reason Stop Dose Admin Lidocaine HCl 1 appl 06/28/24 21:24 06/28/24 21:36 Lidocaine 4 % Cream Kit TOPICAL 06/28/24 21:25 1 appl ONCE ONE Administration Protocol Medical Decision Making Medical Decision Making [facility] Narrative: Patient is status post accidental fall. Currently on Eliquis and on Plavix. Hit the back of his head. There was no loss of consciousness there is no focal weakness. No nausea no vomiting. CT scan of the head was done. My interpretation is CT scan showed no acute bleeding. No acute fracture. I reviewed radiology's reading. I reviewed radiology's reading of the C-spine CT which was also grossly negative for any acute fracture or malalignment. Patient's electrolytes are normal. Well-appearing. Will discharge home. Patient's wound was closed using ankur. Differential Diagnosis Differential Diagnoses: The differential diagnosis associated with the presentation includes Intracranial bleed, fracture, C-spine fracture Admission/Observation Consideration of admission/observation: Escalation of care including admission/observation considered Lab Data [facility] Lab Attestation statement: I reviewed the patient's lab results. 06/28/24 21:52 06/28/24 21:52 Labs: Lab Results 06/28/24 Range/Units 21:52 WBC 8.3 (4.8-10.8) X10*3/uL RBC 4.00 L (4.60-5.80) X10*6/uL Hgb 11.6 L (14.0-18.0) g/dl Hct 33.7 L (42.0-52.0) % MCV 84.3 (80.0-98.0) fL MCH 29.0 (27.0-33.0) pg MCHC 34.4 (31.0-36.0) g/dl RDW 14.2 (11.0-16.0) % Plt Count 215 (160-400) X10*3/uL MPV 8.5 L (9.4-12.4) fL Immature Gran % (Auto) 0.4 (0.0-0.4) % Neut % (Auto) 76.5 H (45-73) % Lymph % (Auto) 12.5 L (20-40) % [place] % (Auto) 6.9 (2-11) % Eos % (Auto) 3.2 (0-4) % Baso % (Auto) 0.5 (0-2) % Lymph # (Auto) 1.0 L (1.2-4.9) X10*3/uL [place] # (Auto) 0.6 (0.1-1.2) X10*3/uL Eos # (Auto) 0.3 (0.0-0.4) X10*3/uL Baso # (Auto) 0.0 (0.0-0.2) X10*3/uL Abs Immat Gran (auto) 0.03 (0.00-0.03) X10*3/uL Absolute Neuts (auto) 6.4 (2.0-8.3) x10*3/uL Absolute Nucleated RBC 0.000 (0.0-0.012) X10*3/uL Nucleated RBC % (auto) 0.0 (0.0-0.2) /100WBC Sodium 137 (135-145) mmol/L Potassium 5.0 (3.3-5.1) mmol/L Chloride 106 (96-108) mmol/L Carbon Dioxide 20 L (22-29) mmol/L Anion Gap 16 (12-20) BUN 34 H (9-16) mg/dL Creatinine 1.23 (0.5-1.4) mg/dL Estim Creat Clear Calc 44.1 Estimated GFR 56 Random Glucose 185 H (60-115) mg/dL Calcium 9.2 (8.4-10.2) mg/dL Independent Interpretation I performed an independent interpretation of an: CT Scan (CT scan head was grossly negative) Radiology Impression Discussion of test interpretation with radiology: I have reviewed the radiologist's reading. Chronic Conditions Patient?s care impacted by: Hypertension Atrial fibrillation, Procedures Laceration Scalp: Site: scalp Size (cm): 5 Description: linear Depth: simple, single layer Pre-repair: wound explored Technique: other (Closed with 5 ankur) Subcutaneous layer closed with: other Discharge Plan Discharge Clinical Impression: Head injury, Laceration of scalp Patient Disposition: Home, Self-Care Instructions: Head Injury (ED), Laceration (DC) Prescriptions: No Action (DME) blood sugar diagnostic Strip See Rx Instructions .ROUTE .MEDSUPPLY Qty: 10 Rx Instructions: As directed (DME) OneTouch Ultra Blue Test Strip Strip See Rx Instructions .ROUTE .MEDSUPPLY Qty: 100 3RF Rx Instructions: As directed check the blood sugars once a day hydrochlorothiazide 25 mg tablet 25 mg PO DAILY Qty: 90 3RF lisinopril 40 mg tablet 40 mg PO DAILY Qty: 90 3RF nitroglycerin [Nitrostat] 0.4 mg tablet, sublingual 0.4 mg sublingual Q5M PRN (Reason: chest pain) Qty: 25 0RF Rx Instructions: do not exceed 3 doses per episode rosuvastatin 20 mg tablet 20 mg PO DAILY Qty: 90 3RF metformin 500 mg tablet 1,000 mg PO BID Qty: 360 3RF felodipine 10 mg tablet extended release 24 hr 10 mg PO DAILY Qty: 90 3RF pantoprazole 20 mg tablet,delayed release (DR/EC) 20 mg PO DAILY Qty: 90 1RF carvedilol 12.5 mg tablet 12.5 mg PO BID 90 Days Qty: 180 2RF Rx Instructions: must administer with a meal/food omega-3 fatty acids 1,000 mg capsule 1,000 mg PO DAILY Calcium 600 + D(3) 600 mg calcium- 200 unit capsule PO ketoconazole 2 % cream 1 appl topical BID Qty: 60 0RF Jardiance 10 mg tablet 10 mg PO DAILY Qty: 30 3RF triamcinolone acetonide [Nasacort] 55 mcg aerosol,spray 2 spray intranasal DAILY Qty: 16.9 2RF Rx Instructions: administer into each nostril isosorbide mononitrate 30 mg tablet extended release 24 hr 60 mg PO DAILY Eliquis 5 mg tablet 5 mg PO BID clopidogrel [Plavix] 75 mg tablet 75 mg PO DAILY spironolactone 25 mg tablet 25 mg PO DAILY Qty: 30 0RF diclofenac sodium [Voltaren Arthritis Pain] 1 % gel 4 g topical QID Qty: 100 3RF Rx Instructions: apply to single knee, ankle, foot; for foot includes sole/toes/top of foot Referrals: Po,Jesse Ortiz MD [Primary Care Provider] - 2 days (Staple removal in approximately 5-7 days.) Print Language: [place]
[2024-06-28 21:55] LABS: MANUAL DIFF FLAG NO
[2024-06-28 22:02] LABS: Basophils Percent Auto 0.5 % (0-2); Eosinophils Absolute Auto 0.3 X10*3/uL (0.0-0.4); Eosinophils Percent Auto 3.2 % (0-4); Hematocrit 33.7 % (42.0-52.0); Hemoglobin 11.6 g/dl (14.0-18.0); Imm Gran Abs Auto 0.03 X10*3/uL (0.00-0.03); Imm Gran Pct Auto 0.4 % (0.0-0.4); Lymphocytes Percent Auto 12.5 % (20-40); Mean Corpuscular HGB Conc 34.4 g/dl (31.0-36.0); Mean Corpuscular Volume 84.3 fL (80.0-98.0); Mean Platelet Volume 8.5 fL (9.4-12.4); Monocytes Absolute Auto 0.6 X10*3/uL (0.1-1.2); Monocytes Percent Auto 6.9 % (2-11); Neutrophils Absolute Auto 6.4 x10*3/uL (2.0-8.3); Neutrophils Percent Auto 76.5 % (45-73); Platelet Count 215 X10*3/uL (160-400); Red Cell Distribution Width 14.2 % (11.0-16.0); White Blood Count 8.3 X10*3/uL (4.8-10.8)
[2024-06-28 22:13] LABS: Anion Gap 16 (12-20); Blood Urea Nitrogen 34 mg/dL (9-16); Calcium 9.2 mg/dL (8.4-10.2); Carbon Dioxide 20 mmol/L (22-29); Chloride 106 mmol/L (96-108); Creatinine Clr Calc Pharmacy 44.1; Estimated Glomerular Filt Rate 56; Glucose Random 185 mg/dL (60-115); Sodium 137 mmol/L (135-145)
[2024-06-28 23:19] VITALS: BP 165/77; PULSE 78; RESP 17; TEMP 36.6; O2SAT 94
== END 2024-06-28 23:21 | disposition home or self-care (01) ==
PROVIDERS: Emergency Provider Emergency Medicine Emergency Medical Services; PCP Internal Medicine
DX: S01.01XA Laceration without foreign body of scalp, initial encounter (principal); M54.2 Cervicalgia; R51.9 Headache, unspecified; I25.10 Atherosclerotic heart disease of native coronary artery without angina pectoris; W01.0XXA Fall on same level from slipping, tripping and stumbling without subsequent striking against object, initial encounter; Y93.89 Activity, other specified; Y92.89 Other specified places as the place of occurrence of the external cause; Y99.8 Other external cause status; Z79.899 Other long term (current) drug therapy
CPT/HCPCS: 12002; 36415; 70450; 72125; 80048; 85025; 99284

== ENCOUNTER 2024-07-04 09:36 | Emergency (ER) | payer MEDICARE, OTHER, SELFPAY ==
[2024-07-04 09:40] VITALS: BP 160/62; PULSE 69; RESP 18; TEMP 36.7; O2SAT 98; BMI 27.9
--- NOTE | 2024-07-04 10:11 | ED_ITS ---
HPI - General Adult General Chief complaint: General Medical Stated complaint: Lucius removal Time Seen by Provider: 07/04/24 09:45 Source: patient Mode of arrival: ambulatory Limitations: no limitations History of Present Illness ED Provider: Kay Campbell HPI narrative: 88-year-old male here 7 days ago for lucius placement on the back of his head. Patient here for removal. He has no complaints. Related Data Home Medications ?Medication ?Instructions ?Recorded ?Confirmed calcium carbonate 600 mg-vitamin cap PO 11/14/20 06/18/24 D3 5 mcg (200 unit) capsule (Calcium 600 + D(3)) omega-3 fatty acids 1,000 mg 1,000 mg PO DAILY 11/14/20 06/18/24 capsule blood sugar diagnostic #10 ea 02/06/21 06/18/24 apixaban 5 mg tablet (Eliquis) 5 mg PO BID 09/11/23 06/18/24 clopidogrel 75 mg tablet (Plavix) 75 mg PO DAILY 09/11/23 06/18/24 isosorbide mononitrate 30 mg 60 mg PO DAILY 09/11/23 06/18/24 tablet,extended release 24 hr Previous Rx's ?Medication ?Instructions ?Recorded blood sugar diagnostic (OneTouch #100 ea 02/06/21 Ultra Blue Test Strip) hydrochlorothiazide 25 mg tablet 25 mg PO DAILY #90 tabs 08/18/23 lisinopril 40 mg tablet 40 mg PO DAILY #90 tabs 08/18/23 nitroglycerin 0.4 mg sublingual 0.4 mg sublingual Q5M PRN chest 09/05/23 tablet (Nitrostat) pain #25 tabs rosuvastatin 20 mg tablet 20 mg PO DAILY #90 tabs 09/20/23 diclofenac sodium 1 % topical gel 4 g topical QID #100 grams 11/21/23 (Voltaren Arthritis Pain) spironolactone 25 mg tablet 25 mg PO DAILY #30 tabs 11/21/23 triamcinolone acetonide 55 mcg 2 spray intranasal DAILY #16.9 mL 12/02/23 nasal spray aerosol (Nasacort) metformin 500 mg tablet 1,000 mg (2 x 500 mg) PO BID #360 12/22/23 tabs felodipine 10 mg tablet,extended 10 mg PO DAILY #90 tabs 01/28/24 release 24 hr pantoprazole 20 mg tablet,delayed 20 mg PO DAILY #90 tabs 03/05/24 release carvedilol 12.5 mg tablet 12.5 mg PO BID 90 days #180 tabs 03/08/24 empagliflozin 10 mg tablet 10 mg PO DAILY #30 tabs 06/18/24 (Jardiance) ketoconazole 2 % topical cream 1 appl topical BID #60 grams 06/18/24 Allergies Allergy/AdvReac Type Severity Reaction Status Date / Time Sulfa (Sulfonamide Allergy Unknown general Verified 07/04/24 09:42 Antibiotics) sickness Review of Systems 2 Review of Systems: Yes all other systems are reviewed and are negative Constitutional: Constitutional: Reports no additional constitutional complaints, Denies body ache(s), Denies chills, Denies fever(s), Denies headache(s) and Denies weakness Eyes: Eyes: Reports no additional eye complaints and Denies change in vision ENT: Reports system reviewed and no additional complaints, except as documented, Denies dizziness, Denies headache(s), Denies nasal congestion, Denies nasal discharge and Denies neck pain Cardiovascular: Cardiovascular: Reports no additional cardiovascular complaints, Denies chest pain, Denies leg edema and Denies dyspnea Respiratory: Respiratory: Reports no additional respiratory complaints, Denies cough and Denies dyspnea Gastrointestinal: Gastrointestinal: Reports no additional gastrointestinal complaints, Denies abdominal pain, Denies diarrhea, Denies nausea and Denies vomiting Genitourinary: Genitourinary: Denies urinary incontinence Musculoskeletal: Musculoskeletal: Reports no additional musculoskeletal complaints, Denies back pain, Denies arthralgias, Denies joint swelling, Denies neck pain, Denies numbness and Denies tingling Integumentary/Breasts: Skin/Breast: Reports system reviewed and no additional complaints, except as docu and Denies rash Neurologic: Reports system reviewed and no additional complaints, except as documented, Denies Abnormal speech present, Denies dizziness, Denies headache(s), Denies numbness, Denies tingling and Denies weakness PMFSH Past Medical History Attestation statement: The following information was validated with the patient. Source: old records reviewed and nursing notes reviewed Medical History Anxiety and depression Acute effusion of both middle ears Skin cancer of nose Bradycardia, drug induced Bradycardia by electrocardiogram Atrial fibrillation Type 2 diabetes mellitus with hyperglycemia Diabetic nephropathy Hypercholesterolemia GERD (gastroesophageal reflux disease) Polymyalgia rheumatica Hypertension Coronary artery disease Surgical History History of cataract surgery History of tonsillectomy History of bilateral hip arthroplasty Left inguinal hernia Social History Social History Housing: House Alcohol intake: former Patient Tobacco Use Status: Never used Tobacco e-Cigarette/Vaping Use: Never Used Second Hand Smoke Exposure: No Advance Directives: Yes Advance Directives Information Provided: Yes Advance Directives on File: No service: Yes Current occupational status: retired Cognitive needs: No Hearing needs: No Vision needs: Yes Physical Exam ED Vital Signs: Vital Signs - 24 hr 07/04/24 09:40 07/04/24 10:18 Temperature 98.1 F 97.5 F Pulse Rate 69 70 Respiratory Rate 18 18 Blood Pressure 160/62 H 149/58 H Pulse Oximetry 98 98 Oxygen Delivery Method Room Air Room Air BMI result Body Mass Index 27.9 Const General: cooperative, healthy appearing, comfortable and no acute distress Orientation/consciousness: patient oriented x3 Limitations: no limitations HENMT Head: Yes normal to inspection Head images: 2 1. 4 lucius present-edges approximated. No bleeding, drainage erythemanoted Ears: hearing grossly normal bilaterally General nose exam: Normal external nose present Face and sinus: Yes normal facial exam Mouth: Normal oral and palatal mucosa present Throat: Yes posterior oropharynx normal Eyes General: appearance normal, both eyes and all related structures Pupils: Equal, round and reactive pupils present Neck Neck: Yes normal visual inspection Chest Chest palpation & inspection: normal inspection of the chest Resp Effort & Inspection: normal respiratory effort Auscultation: clear to auscultation bilaterally Cardio Rate: regular rate Rhythm: regular rhythm Peripheral pulses: Peripheral pulses 2+ throughout GI Inspection: Yes normal to inspection Palpation (GI): Soft to palpation and nontender Auscultation: normal bowel sounds Back/Spine/Pelvis Thoracic/Lumbar Spine: thoracic and lumbar spine normal to inspection Skin General skin exam: no rashes or lesions noted Neuro General: patient oriented x3, no focal motor deficits and normal sensation to monofilament Cranial nerves: Yes Equal, round and reactive pupils present Cognition (Neuro): normal cognition Speech: No Abnormal speech present Gait exam (Neuro): Normal gait present Motor exam (neuro): 5/5 motor strength present throughout Extrem General: Yes normal to inspection Medications Administered Discontinued Medications Generic Name Dose Route Start Last Admin Trade Name Nima PRN Reason Stop Dose Admin Bacitracin 1 appl 07/04/24 10:09 07/04/24 10:14 Bacitracin Oint 0.9 Gm Packet TOPICAL 07/04/24 10:10 1 appl ONCE ONE Administration Protocol Procedures Procedure Narrative Procedure Narrative: Four lucius removed from posterior head with no issues Medical Decision Making Medical Decision Making MDM Narrative: 88-year-old male here 7 days ago for lucius placement on the back of his head. Patient here for removal. He has no complaints. See procedure note Differential Diagnosis Differential Diagnoses: The differential diagnosis associated with the presentation includes Staple removal, wound infection External Record Review External record reviewed: Outside ED record Prescription Management I considered prescription management with: Antibiotic Discharge Plan Discharge Clinical Impression: Encounter for removal of lucius Patient Disposition: Home, Self-Care Instructions: Stitches Removal (ED) Additional Instructions: Wash the area with soap and water daily in the shower Do not pick at the scabbing areas. Apply a topical antibiotic ointment like Polysporin or Neosporin to the affected area once Prescriptions: No Action (DME) blood sugar diagnostic Strip See Rx Instructions .ROUTE .MEDSUPPLY Qty: 10 Rx Instructions: As directed (DME) OneTouch Ultra Blue Test Strip Strip See Rx Instructions .ROUTE .MEDSUPPLY Qty: 100 3RF Rx Instructions: As directed check the blood sugars once a day hydrochlorothiazide 25 mg tablet 25 mg PO DAILY Qty: 90 3RF lisinopril 40 mg tablet 40 mg PO DAILY Qty: 90 3RF nitroglycerin [Nitrostat] 0.4 mg tablet, sublingual 0.4 mg sublingual Q5M PRN (Reason: chest pain) Qty: 25 0RF Rx Instructions: do not exceed 3 doses per episode rosuvastatin 20 mg tablet 20 mg PO DAILY Qty: 90 3RF metformin 500 mg tablet 1,000 mg PO BID Qty: 360 3RF felodipine 10 mg tablet extended release 24 hr 10 mg PO DAILY Qty: 90 3RF pantoprazole 20 mg tablet,delayed release (DR/EC) 20 mg PO DAILY Qty: 90 1RF carvedilol 12.5 mg tablet 12.5 mg PO BID 90 Days Qty: 180 2RF Rx Instructions: must administer with a meal/food omega-3 fatty acids 1,000 mg capsule 1,000 mg PO DAILY Calcium 600 + D(3) 600 mg calcium- 200 unit capsule PO ketoconazole 2 % cream 1 appl topical BID Qty: 60 0RF Jardiance 10 mg tablet 10 mg PO DAILY Qty: 30 3RF triamcinolone acetonide [Nasacort] 55 mcg aerosol,spray 2 spray intranasal DAILY Qty: 16.9 2RF Rx Instructions: administer into each nostril isosorbide mononitrate 30 mg tablet extended release 24 hr 60 mg PO DAILY Eliquis 5 mg tablet 5 mg PO BID clopidogrel [Plavix] 75 mg tablet 75 mg PO DAILY spironolactone 25 mg tablet 25 mg PO DAILY Qty: 30 0RF diclofenac sodium [Voltaren Arthritis Pain] 1 % gel 4 g topical QID Qty: 100 3RF Rx Instructions: apply to single knee, ankle, foot; for foot includes sole/toes/top of foot Referrals: Jesse Chaudhry MD [Primary Care Provider] - 5 days Interventions: ED Discharge Assessment Last Done: 07/04/24 10:18 Discharge Date/Time: 07/04/24 10:18 Print Language: Slovenian
[2024-07-04] MEDS: Bacitracin Oint 0.9 GM PACKET 1 APPL TOPICAL (10:14)
[2024-07-04 10:18] VITALS: BP 149/58; PULSE 70; RESP 18; TEMP 36.4; O2SAT 98
== END 2024-07-04 10:18 | disposition home or self-care (01) ==
PROVIDERS: Emergency Provider Emergency Medicine; PCP Internal Medicine
DX: Z48.02 Encounter for removal of sutures (principal)
CPT/HCPCS: 99282

== ENCOUNTER 2024-07-15 12:30 | Outpatient (REF) | payer MEDICARE, OTHER, SELFPAY | END 2024-07-15 12:31 | disposition home or self-care (01) | LOC: HO.SH 12:30 | PROVIDERS: Visit Provider Internal Medicine | DX: Z01.118 Encounter for examination of ears and hearing with other abnormal findings (principal); H90.3 Sensorineural hearing loss, bilateral | CPT/HCPCS: 92552; 92556 ==

== ENCOUNTER 2024-10-18 13:52 | Outpatient (REF) | payer SELFPAY ==
--- NOTE | 2024-10-19 10:10 | MHC.AU.HA1 ---
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 Current personal amplification information, if applicable: Phonak Audeo P 50 13 T Summary: George is here to follow up on a previous discussion regarding new technology. In July he expressed interest in Infinio Sphere, but preferred batteries to rechargeable. He has been waiting to see if [employer] releases a battery operated model. At this time, he is interested in pursuing new battery operated amplification. We discussed options. George will proceed with Audeo L 70 312. As noted 06/16/24, we will bill his insurance, he will have to pay his expected portion up front. Hearing Aid Prescription: Based on the individual?s shared listening needs, communication environments, dexterity, desire for connectivity, and personal preferences, the following prescription for amplification has been made: Right ear: Make, Model, Color: Phonak Audeo [id number] Color: Velvet Black Battery Size: 312 Dry Cleaning Machine Operator Helper/Slim Tube: 1M Type of Earmold/Dome/CShell/SlimTip: Small vented dome (no retention tail) Left ear: Make, Model, Color: Phonak Audeo P70 312 Color: Velvet Black Battery Size: 312 Dry Cleaning Machine Operator Helper/Slim Tube: 1M Type of Earmold/Dome/CShell/SlimTip: Small vented dome (no retention tail) Plan of Care: Patient wishes to purchase hearing aids as prescribed Action Taken/Action Needed: Medical Clearance to be requested from PCP/ENT Hearing Instrument Fitting to be scheduled when materials arrive Primary Diagnosis: H90.3 Bilateral Sensorineural Hearing Loss Signature: Provider: Ute Laureano, [facility]
== END 2024-10-18 13:53 | disposition home or self-care (01) ==
LOC: HO.HAP 13:52
PROVIDERS: Visit Provider Internal Medicine
DX: Z46.1 Encounter for fitting and adjustment of hearing aid (principal); H90.3 Sensorineural hearing loss, bilateral
CPT/HCPCS: 92590

== ENCOUNTER 2024-10-27 11:06 | Outpatient (AMB) | payer MEDICARE, OTHER, SELFPAY ==
[2024-10-27 11:14] VITALS: BP 136/70; PULSE 73; O2SAT 97; BMI 27.4
--- NOTE | 2024-10-27 11:14 | A.OFFPC_ITS ---
Vital Signs 10/27/24 11:14 Height 5 ft 7 in Weight 175 lb BMI 27.4 BP 136/70 Blood Pressure Location Lt brachial Position Sitting Pulse 73 Pulse Source Pulse Oximeter Pulse Oximetry (%) 97 Oxygen Delivery Method Room Air Intake Visit Reasons: DM Allergies Sulfa (Sulfonamide Antibiotics) Allergy (Unknown, Verified 10/27/24 11:14) general sickness Medication List - Last Reconciled 10/27/24 by Jesse Chaudhry MD apixaban (Eliquis) 5 mg PO BID blood sugar diagnostic ([employer] Ultra Blue Test Strip) As directed check the blood sugars once a day blood sugar diagnostic As directed calcium carbonate-vitamin D3 600 mg-5 mcg (200 unit) (Calcium 600 + D(3)) caps PO carvedilol 12.5 mg PO BID 90 days clopidogrel (Plavix) 75 mg PO DAILY diclofenac sodium 1% (Voltaren Arthritis Pain) 4 grams topical QID empagliflozin (Jardiance) 10 mg PO DAILY felodipine ER 10 mg PO DAILY hydrochlorothiazide 25 mg PO DAILY isosorbide mononitrate ER 60 mg PO DAILY ketoconazole 2% 1 appl topical BID lisinopril 40 mg PO DAILY metformin 1,000 mg (2 x 500 mg) PO BID nitroglycerin (Nitrostat) 0.4 mg sublingual Q5M PRN omega-3 fatty acids 1,000 mg PO DAILY pantoprazole 20 mg PO DAILY rosuvastatin 20 mg PO DAILY spironolactone 25 mg PO DAILY triamcinolone acetonide (Nasacort) 2 sprays intranasal DAILY Tobacco use date assessed: 10/27/24 Fall risk assessment: 1 Fall in past year Last assessed Fall Risk: 10/27/24 Dental Screening Dental Screen Date: 06/18/24 HPI DM HPI Details 89-year-old overweight male with coronar y artery disease hypertension GERD hypercholesterolemia diabetes mellitus generalized anxiety disorder atrial fibrillation with polymyalgia rheumatica coming in for follow-up. Last seen in May 2024 for physical exam. Review of the notes in May 2024 ER visit for head injury was bending over and fell striking posterior head noted a 4 cm laceration in the posterior scalp had ankur done. Patient complains a lot on the back pain and thinks that this is the cause of why the fall happened. [facility] Medical History Anxiety and depression Acute effusion of both middle ears Skin cancer of nose Bradycardia, drug induced Bradycardia by electrocardiogram Atrial fibrillation Type 2 diabetes mellitus with hyperglycemia Diabetic nephropathy Hypercholesterolemia GERD (gastroesophageal reflux disease) Polymyalgia rheumatica Hypertension Coronary artery disease Surgical History History of cataract surgery History of tonsillectomy History of bilateral hip arthroplasty Left inguinal hernia Social History Housing: House Alcohol intake: former Patient Tobacco Use Status: Never used Tobacco Tobacco use type: Cigarette e-Cigarette/Vaping Use: Never Used Second Hand Smoke Exposure: No service: Yes Current occupational status: retired Cognitive needs: No Hearing needs: No Vision needs: Yes Questionnaire PHQ-9 Over the last 2 weeks, how often have you been bothered by any of the following problems? 1. Little interest or pleasure in doing things: not at all 2. Feeling down, depressed, or hopeless: not at all 3. Trouble falling or staying asleep, or sleeping too much: not at all 4. Feeling tired or having little energy: not at all 5. Poor appetite or overeating: not at all 6. Feeling bad about yourself - or that you are a failure or have let yourself or your family down: not at all 7. Trouble concentrating on things, such as reading the newspaper or watching television: not at all 8. Moving or speaking so slowly that other people could have noticed. Or the opposite - being so fidgety or restless that you have been moving around a lot more than usual: not at all 9. Thoughts that you would be better off or of hurting yourself in some way: not at all Total score: 0 Depression Screening Interpretation: Negative Depression Screening Done: Yes 71685 - PHQ-9 Billing: Yes Source: Developed by Drs. Yaw Arriaga, Jelena Eric, Seth Jaime and colleagues, with an educational lesley from [employer]. Thrive Questionnaire Date Thrive assessed: 02/26/24 AUDIT C Alcohol Use Questionnaire (AUDIT-C) 1. How often do you have a drink containing alcohol?: Never 2. How many drinks containing alcohol do you have on a typical day when you are drinking?: 1 or 2 (0) 3. How often do you have six or more drinks on one occasion?: Never Total Score: 0 CAR[place]-7 AMB Questionnaire [place]-7 Date [place]OLINA - 7 assessed: 02/26/24 Source: Developed by Drs. Yaw Arriaga, Jelena Eric, Seth Jaime and colleagues, with an educational lesley from [employer]. Physical exam (Primary Care) Vital Signs: Last Vital Signs Pulse 73 10/27/24 11:14 BP 136/70 10/27/24 11:14 Pulse Ox 97 10/27/24 11:14 Oxygen Delivery Method Room Air 10/27/24 11:14 BMI result Body Mass Index 27.4 Tobacco/Smoking Status: Tobacco use Status Tobacco use date assessed 10/27/24 10/27/24 11:16 Patient Tobacco Use Status Never used Tobacco 10/27/24 11:16 Tobacco use type Cigarette 10/27/24 11:16 e-Cigarette/Vaping Use Never Used 10/27/24 11:16 PHQ-9: PHQ-9 Score PHQ-9: Total score 0 10/27/24 11:27 Depression Screening Interpretation: Negative Thrive Assessment: Date of Thrive Assessment Date Thrive assessed 02/26/24 10/27/24 11:16 Const General: alert; No acute distress Eyes Conjunctivae: conjunctivae normal Resp Auscultation: clear to auscultation bilaterally Cardio Rate: regular rate Rhythm: regular rhythm GI Inspection: Yes normal to inspection Extrem General: Yes normal to inspection and No edema Results AMB Hemoglobin A1c AMB Hemoglobin A1c 7.0 % Last Edit by Kaylene Self CMA on 10/27/24 11 :29 Results Reviewed Results Reviewed: Laboratory Last Values Hgb A1c (Clinic) 7.0 % (4.0-6.0) H 10/27/24 11:16 Coding Level of Care Code Est Pt Level 4 (88588) Complex EM visit Add On G2211 Diagnoses Paroxysmal atrial fibrillation I48.0 Atrial fibrillation type: paroxysmal Coronary artery disease involving [place] coronary artery of [place] heart without angina pectoris I25.10 Associated angina: without angina Coronary Disease-Associated Artery/Lesion type: [place] artery [place] vs. transplanted heart: [place] heart Essential hypertension I10 Hypertension type: essential hypertension Type 2 diabetes mellitus with hyperglycemia, without long-term current use of insulin E11.65 Diabetes mellitus fpc insulin use: without fpc use Hypercholesterolemia E78.00 Gastroesophageal reflux disease without esophagitis K21.9 Esophagitis presence: without esophagitis Generalized anxiety disorder F41.1 Degeneration of intervertebral disc of lumbar region with discogenic back pain M51.360 Disc-related pain type: discogenic back pain only Additional Codes PHQ-9 - 56840 - PHQ-9 Billing: Yes ([id number]) Assessment & Plan Assessment & Plan (1) Atrial fibrillation: Comment: Paroxysmal 2014 Dr. Gong Code(s): I48.91 - Unspecified atrial fibrillation Category: Medical Qualifiers: Atrial fibrillation type: paroxysmal Qualified Code(s): I48.0 - Paroxysmal atrial fibrillation Plan: Continue with anticoagulation with Eliquis. (2) Coronary artery disease: Comment: RCA stent 2007 [place] of LAD March 2015 partial dissection of LAD post procedure Code(s): I25.10 - Atherosclerotic heart disease of [place] coronary artery without angina pectoris Category: Medical Qualifiers: Associated angina: without angina Coronary Disease-Associated Artery/Lesion type: [place] artery [place] vs. transplanted heart: [place] heart Qualified Code(s): I25.10 - Atherosclerotic heart disease of [place] coronary artery without angina pectoris Plan: Control the cholesterol, weight, blood pressure, diabetes (3) Hypertension: Code(s): I10 - Essential (primary) hypertension Category: Medical Qualifiers: Hypertension type: essential hypertension Qualified Code(s): I10 - Essential (primary) hypertension Plan: Continue with blood pressure medication. Decrease salt intake and exercise carvedilol 12.5 mg twice a day felodipine 10 mg once a day hydrochlorothiazide 25 mg once a day lisinopril 40 mg once a day and spironolactone. (4) Type 2 diabetes mellitus with hyperglycemia: Comment: eye Dr. Adam [place] Code(s): E11.65 - Type 2 diabetes mellitus with hyperglycemia Category: Medical Qualifiers: Diabetes mellitus fpc insulin use: without fpc use Qualified Code(s): E11.65 - Type 2 diabetes mellitus with hyperglycemia Plan: Decrease the amount of carbohydrate intake, pasta, bread, rice and potatoes are all sugar and that is aside from all the sweet stuff, remember that fruits are good but they are Sweet also. Hemoglobin A1c goal of less than 7.0 on metformin a 1000 mg twice a day Jardiance 10 mg once a day (5) Hypercholesterolemia: Code(s): E78.00 - Pure hypercholesterolemia, unspecified Category: Medical Plan: Avoid fried foods, chicken skin, eggs, butter margarine, pastries and meat. Be it pork or beef they have a lot of cholesterol LDL goal of less than 70 and triglyceride of less than 150. January 2024 last blood work (6) GERD (gastroesophageal reflux disease): Code(s): K21.9 - Gastro-esophageal reflux disease without esophagitis Category: Medical Qualifiers: Esophagitis presence: without esophagitis Qualified Code(s): K21.9 - Gastro-esophageal reflux disease without esophagitis Plan: Avoid the foods that causes that usually spicy foods, tomato products, juices, coffee, soda and foods that your sensitive to. After eating do not lie down, allow 3-4 hours before in lie down. And keep the head of bed above 30 degrees to avoid the acid from going up. (7) Generalized anxiety disorder: Code(s): F41.1 - Generalized anxiety disorder Category: Medical Plan: Stable (8) Lumbar degenerative disc disease: Code(s): M51.369 - Other intervertebral disc degeneration, lumbar region without mention of lumbar back pain or lower extremity pain Category: Medical Qualifiers: Disc-related pain type: discogenic back pain only Qualified Code(s): M51.360 - Other intervertebral disc degeneration, lumbar region with discogenic back pain only Plan: advised to try TYLENOL 1000 mg TID prn, voltaren gel sent also Orders: Orders Complete Blood Count Auto Diff 3 Months . - Type 2 diabetes mellitus with hyperglycemia Ferritin 3 Months . - Type 2 diabetes mellitus with hyperglycemia Lipid Panel 3 Months E11. - Type 2 diabetes mellitus with hyperglycemia, E78.00 - Pure hypercholesterolemia, unspecified Creatinine Urine 3 Months . - Type 2 diabetes mellitus with hyperglycemia Microalbumin, Random (w Creat) 3 Months . - Type 2 diabetes mellitus with hyperglycemia B Type Natriuretic Peptide 3 Months . - Type 2 diabetes mellitus with hyperglycemia AMB Hemoglobin A1c Today Z13.9 - Encounter for screening, unspecified Comprehensive Met. Panel 3 Months . - Type 2 diabetes mellitus with hyperglycemia Free T4 (Free Thyroxine) 3 Months E11.65 - Type 2 diabetes mellitus with hyperglycemia Reticulocyte Count 3 Months E11.65 - Type 2 diabetes mellitus with hyperglycemia Hemoglobin A1c 3 Months E11.65 - Type 2 diabetes mellitus with hyperglycemia Thyroid Stimulating Hormone 3 Months E11.65 - Type 2 diabetes mellitus with hyperglycemia IRON PROFILE 3 Months E11.65 - Type 2 diabetes mellitus with hyperglycemia Vitamin B12 and Folate 3 Months E11.65 - Type 2 diabetes mellitus with hyper glycemia UA w Microscopic 3 Months E11.65 - Type 2 diabetes mellitus with hyperglycemia Medications: Refilled diclofenac sodium 1% (Voltaren Arthritis Pain) apply to single knee, ankle, foot; for foot includes sole/toes/top of foot 4 grams topical QID 100 grams 3RF M53.3 - Sacrococcygeal disorders, not elsewhere classified
== END 2024-10-27 11:52 | disposition home or self-care (01) ==
PROVIDERS: PCP Internal Medicine; Visit Provider Internal Medicine
DX: I48.0 Paroxysmal atrial fibrillation (principal); I25.10 Atherosclerotic heart disease of native coronary artery without angina pectoris; I10 Essential (primary) hypertension; E11.65 Type 2 diabetes mellitus with hyperglycemia; E78.00 Pure hypercholesterolemia, unspecified; K21.9 Gastro-esophageal reflux disease without esophagitis; F41.1 Generalized anxiety disorder; M51.360 Other intervertebral disc degeneration, lumbar region with discogenic back pain only; Z13.9 Encounter for screening, unspecified

== ENCOUNTER → 2024-10-27 11:06 | Outpatient (BNVA) | payer MEDICARE, OTHER, SELFPAY | PROVIDERS: PCP Internal Medicine; Visit Provider Internal Medicine | DX: I48.0 Paroxysmal atrial fibrillation (principal); I25.10 Atherosclerotic heart disease of native coronary artery without angina pectoris; I10 Essential (primary) hypertension; E11.65 Type 2 diabetes mellitus with hyperglycemia; E78.00 Pure hypercholesterolemia, unspecified; K21.9 Gastro-esophageal reflux disease without esophagitis; F41.1 Generalized anxiety disorder; M51.360 Other intervertebral disc degeneration, lumbar region with discogenic back pain only | CPT/HCPCS: 83036; 96127; 99212 ==

== ENCOUNTER 2024-11-08 14:59 | Outpatient (REF) | payer OTHER, SELFPAY ==
--- NOTE | 2024-11-08 16:20 | MHC.AU.HA2 ---
Hearing Instrument Fitting- Adult- Binaural Date of Visit: 11/08/24 Hearing Instruments Dispensed: Right Ear: Make, Model, Color, Serial Number: Phonak Audeo [id number] Color: Velvet Black S#[id number] Bonderite Operator Repair Warranty: 11/24/2027 Bonderite Operator Loss and Damage Warranty: 11/24/2027 [facility] Service Plan: n/a Battery Size: 312 Senior Accountant Analyst/Slim Tube: 1M Earmold/Dome/CShell/SlimTip: Small vented dome (no retention tail) Type of Wax Guard: CeruStop Left Ear: Make, Model, Color, Serial Number: Phonak Audeo [id number] Color: Velvet Black S#[id number] Bonderite Operator Repair Warranty: 11/24/2027 Bonderite Operator Loss and Damage Warranty: 11/24/2027 [facility] Service Plan: n/a Battery Size: 312 Senior Accountant Analyst/Slim Tube: 1M Earmold/Dome/CShell/SlimTip: Small vented dome (no retention tail) Type of Wax Guard: CeruStop Accessories/Assistive Technology: Summary of Fitting: Fit with and oriented to binaural Phonak Audeo L 70 312 HAs. Verified to [facility] adult 5 targets. Reviewed care and maintenance. Longtime hearing aid user. VC enabled. Paired with phone. Sent George to the front to pay his portion, billing [facility]- expected $1700 per ear, ok'd per Abigail as noted 06/16/24. Recommendations: Recommendations: Hearing instrument care and maintenance were discussed and practiced. The instrument(s) were paired to the patient's smartphone. A hearing instrument follow-up was scheduled. Diagnosis Code(s): Primary Diagnosis: H90.3 Bilateral Sensorineural Hearing Loss Signature: Provider: Ute Laureano, CCC-A
--- OUTSIDE RECORDS SUMMARY | 2024-11-10 16:17 | XMS_ITS | Continuity of Care Document ---
Author Organization [facility] Address [address] [place] [id number] Care Team Providers Care Business Loan Processor Name Role Phone Po Jesse SUH Primary Care Physician [phone] Encounter [facility] Date(s): 09/24/24 - 10/24/24 [facility] [address] [place] [address] Attending Physician: Gustabo Zhang Admitting Physician: Gustabo Zhang Referring Physician: Gustabo Zhang Encounter Type: Triage Allergies, Adverse Reactions, Alerts Substance Criticality Severity Reaction Reaction Severity Status sulfa drugs Active Immunizations Given and Recorded Vaccine Date Status Refusal Reason Fluzone (oldterm) 1 09/02/18 Given pneumococcal 23-valent vaccine 04/19/15 Given influenza virus vaccine, inactivated 09/17/08 Give n 1Admin Note: + 65 CDC info given to pt. HIGH Dose Medications Calcium 600 +D oral tablet 1 tablet, By Mouth, 2 times a day, 0 Refills, Maintenance, 08/24/14 8:57:21 AM EDT Start Date: 08/24/14 Status: Ordered Repeat number: 1 carvedilol 12.5 mg oral tablet 12.5 mg, 1, tablet, By Mouth, 2 times a day, take with food at breakfast and supper, # 60 tablet, Refills 1, Tot. Refills 1, Maintenance, 02/10/24 3:59:00 PM EDT, Route to Pharmacy Electronically, [facility]/pharmacy #[id number], Partial fill upon patient request if the prescription is for a schedule II opioid drug., 170, cm, 02/10/24 11:38:00 EDT, Height, 88.6, kg, 08/27/23 17:23:00 EDT, Dry Weight Start Date: 02/10/24 Status: Ordered Quantity: 60.0 Unit: tablet Repeat number: 2 clopidogrel 75 mg oral tablet 1, tablet, By Mouth, Daily, # 90 tablet, Refills 3, Maintenance, 08/09/24 11:51:00 AM EDT, Route to Pharmacy Electronically, [id number], 170, cm, 03/02/24 13:08:00 EDT, Height, 88.6, kg, 08/27/23 17:23:00 EDT, Dry Weight Start Date: 08/09/24 Status: Ordered Quantity: 90.0 Unit: tablet Repeat number: 1 Crestor 20 mg oral tablet = 20 mg, By Mouth, Daily at bedtime, # 90 capsule, 3 Refills, Maintenance, 03/04/11 3:05:01 PM EDT, [facility] Electronic Start Date: 03/04/11 Status: Ordered Quantity: 90.0 Unit: capsule Repeat number: 4 Eliquis 5 mg oral tablet 1 tablet, By Mouth, 2 times a day, # 180 tablet, 0 Refills, Maintenance, 09/13/24 7:41:00 AM EDT, [facility] [id number], 170, cm, 03/02/24 13:08:00 EDT, Height, 88.6, kg, 08/27/23 17:23:00 EDT, Dry Weight Start Date: 09/13/24 Status: Ordered Quantity: 180.0 Unit: tablet Repeat number: 1 famotidine 20 mg oral tablet 20 mg, 1, tablet, By Mouth, Daily, # 90 tablet, Refills 0, Tot. Refills 0, Maintenance, 05/31/24 11:37:00 AM EDT, Route to Pharmacy Electronically, [facility]/pharmacy #[id number], Partial fill upon patient requestif the prescription is for a schedule II opioid drug., 170, cm, 03/02/24 13:08:00 EDT, Height, 88.6, kg, 08/27/23 17:23:00 EDT, Dry Weight Start Date: 05/31/24 Status: Ordered Quantity: 90.0 Unit: tablet Repeat number: 1 famotidine 20 mg oral tablet 1, tablet, By Mouth, Daily, # 90 tablet, Refills 2, Maintenance, 08/31/24 12:52:00 PM EDT, Route to Pharmacy Electronically, [facility] [id number], 170, cm, 03/02/24 13:08:00 EDT, Height, 88.6, kg, 08/27/2317:23:00 EDT, Dry Weight Start Date: 08/31/24 Status: Ordered Quantity: 90.0 Unit: tablet Repeat number: 1 felodipine extended release = 10 mg, By Mouth, Daily, 0 Refills, 01/04/10 1:56:45 AM EST Start Date: 01/04/10 Status: Ordered Repeat number: 1 Fish Oil By Mouth, 0 Refills, Maintenance, 09/24/24 12:39:00 PM EDT, Partial fill upon patient request if the prescription is for a schedule II opioid drug. Start Date: 09/24/24 Status: Ordered Repeat number: 1 hydrochlorothiazide 25 mg oral tablet 25 mg, 1, tablet, By Mouth, Daily, # 90 tablet, Refills 3, Tot. Refills 3, Maintenance, 11/14/17 11:37:16 AM EST, Route to Pharmacy Electronically, [facility] Start Date: 11/14/17 Stop Date: 11/09/18 Status: Ordered Quantity: 90.0 Unit: tablet Repeat number: 4 isosorbide mononitrate 60 mg oral tablet, extended release 1 tablet, By Mouth, Daily in AM, # 90 tablet, 3 Refills, Maintenance, 08/09/24 11:52:00 AM EDT, [id number], 170, cm, 03/02/24 13:08:00 EDT, Height, 88.6, kg, 08/27/23 17:23:00 EDT, Dry Weight Start Date: 08/09/24 Status: Ordered Quantity: 90.0 Unit: tablet Repeat number: 1 Jardiance 10 mg oral tablet 1 tablet = 10 mg, By Mouth, Daily in AM, # 30 tablet, 0 Refills, Maintenance, 09/24/24 12:39:00 PM EDT, Tablet, Partial fill upon patient request if the prescription is for a schedule II opioid drug. Start Date: 09/24/24 Status: Ordered Quantity: 30.0 Unit: tablet Repeat number: 1 lisinopril 40 mg oral tablet 40 mg, 1, tablet, By Mouth, Daily, # 30 tablet, Refills 5, Tot. Refills 5, 09/17/08 11:22:13 AM EDT Start Date: 09/17/08 Stop Date: 03/16/09 Status: Ordered Quantity: 30.0 Unit: tablet Repeat number: 6 metformin 500 mg oral tablet 2 tablet, By Mouth, 2 times a day, # 180 tablet, 0 Refills, Maintenance, 08/24/14 8:58:02 AM EDT, Tablet Start Date: 08/24/14 Status: Ordered Quantity: 180.0 Unit: tablet Repeat number: 1 Multivitamin Tablet 1 tablet, By Mouth, Daily, # 30 tablet, 5 Refills, 09/17/08 11:20:59 AM EDT Start Date: 09/17/08 Stop Date: 03/16/09 Status: Ordered Quantity: 30.0 Unit: tablet Repeat number: 6 nitroglycerin 0.4 mg sublingual tablet See Instructions, 1 tablet Sublingual Every 5 minutes times 3 doses for chest pain, if pain persists seek medical attention, # 100 tablet, 1 Refills, 03/15/16 8:24:34 AM EDT, [facility] Start Date: 03/15/16 Status: Ordered Quantity: 100.0 Unit: tablet Repeat number: 2 pantoprazole 20 mg oral delayed release tablet 1 tablet = 20 mg, By Mouth, Daily, # 90 tablet, 0 Refills, Maintenance, 09/17/23 1:10:00 PM EDT, CRTablet Start Date: 09/17/23 Status: Ordered Quantity: 90.0 Unit: tablet Repeat number: 1 PreserVision AREDS 2 1 capsule, By Mouth, 2 times a day, 0 Refills, Maintenance, 04/18/15 1:59:46 AM EDT Start Date: 04/18/15 Status: Ordered Repeat number: 1 spironolactone 25 mg oral tablet See Instructions, TAKE 1/2 OF A TABLET BY MOUTH DAILY FOR 30 DAYS, # 45 tablet, Refills 1, Maintenance, 12/29/23 9:35:00 AM EST, Instructions Replace Required Details, Route to Pharmacy Electronically, [facility] [id number], 170, cm, 09/17/23 12:32:00 EDT, Height, 88.6, kg, 08/27/23 17:23:00 EDT, Dry Weight Start Date: 12/29/23 Status: Ordered Quantity: 45.0 Unit: tablet Repeat number: 1 Problem List Condition Confirmation Course Effective Dates Status H ealth Status Informant Coronary artery disease Confirmed Active Hyperlipidemia Confirmed Active Hypertension Confirmed Active PAF (paroxysmal atrial fibrillation) Confirmed Active S/P coronary artery stent placement Confirmed Active Social History Social History Type Response Smoking Status Never smoker; Tobacc o user in household: No entered on: 08/24/14 Sex Sex Representation Male (finding) Patient Care team information Care Team Personnel Name: Matt BENJAMIN, Eladia Odell Position: [facility] PCO Associate Professional Member Role: Primary Care Nurse Name: Lisette Guzman RN Position: [facility] RN Member Role: Primary Care Nurse Name: Elidia Camilo RN Position: [facility] RN Member Role: Primary Care Nurse Name: Jesse Chaudhry MD Position: Reference Physician Member Role: PCP Address: [address] [place] [address] Telecom: Name: Lisa Sprague RN Position: [facility] OB RN Member Role: Primary Care Nurse Care Team Related Persons Name: SAQIB OLIVA Name: FAYE GENAO Insurance Providers Guarantor name: MARIUSZ GENAO Health Plan Information #: 1 Payer: MEDICARE PART B OUTPT Member Number: NA Policy Number: NA Group Number: NA Health Plan Information #: 2 Payer: [facility] Member Number: NA Policy Number: NA Group Number: NA
== END 2024-11-08 15:00 | disposition home or self-care (01) ==
LOC: HO.HAP 14:59
PROVIDERS: Visit Provider Internal Medicine
DX: Z46.1 Encounter for fitting and adjustment of hearing aid (principal); H90.3 Sensorineural hearing loss, bilateral
CPT/HCPCS: V5261

== ENCOUNTER 2024-11-29 14:16 | Outpatient (REF) | payer OTHER, SELFPAY ==
--- NOTE | 2024-11-29 15:03 | MHC.AU.HA3 ---
Hearing Instrument Follow-Up- Binaural Date of Visit: 11/29/24 Right Ear: Pa, Model, Color, Serial Number: Nirmal Gold [id number] Color: Shaheedvehome Black S#[id number] Water Analyst Repair Warranty: 11/24/2027 Water Analyst Loss and Damage Warranty: 11/24/2027 [facility] Service Plan: n/a Battery Size: 312 Endbander/Slim Tube: 1M Earmold/Dome/CShell/SlimTip:Small vented dome (no retention tail) Type of Wax Guard: CeruStop Dispensed By: [facility] Date of Fittin11/29/24 Left Ear: Pa, Model, Color, Serial Number: Nirmal Gold [id number] Color: Velvet Black S#[id number] Water Analyst Repair Warranty: 11/24/2027 Water Analyst Loss and Damage Warranty: 11/24/2027 [facility] Service Plan: n/a Battery Size: 312 Endbander/Slim Tube: 1M Earmold/Dome/CShell/SlimTip: Small vented dome (no retention tail) Type of Wax Guard: CeruStop Dispensed By: [facility] Date of Fittin11/29/24 Follow-Up Summary: Seen for follow up. Reports getting feedback from left. Ran feedback manager income tax. Resolved. Reports issue getting sound streamed to hearing aids from phone. Forgot all and re-paired. Tested a call. Streaming now working. Otherwise, reports good satisfaction with new hearing aids. Recommendations: Recommendations: Hearing instrument follow-up or maintenance as needed. Diagnosis Code(s): Primary Diagnosis: H90.3 Bilateral Sensorineural Hearing Loss Signature: Provider: Ute Laureano, [facility]
== END 2024-11-29 14:17 | disposition home or self-care (01) ==
LOC: HO.HAP 14:16
PROVIDERS: Visit Provider Internal Medicine
DX: Z13.89 Encounter for screening for other disorder (principal)

== ENCOUNTER 2024-12-30 10:04 | Outpatient (AMB) | payer OTHER, SELFPAY ==
--- NOTE | 2024-12-30 10:06 | A.OFFPC_ITS ---
Intake Visit Reasons: Cold/Flu Symptoms Allergies Sulfa (Sulfonamide Antibiotics) Allergy (Unknown, Verified 12/30/24 10:07) general sickness Tobacco use date assessed: 12/30/24 Fall risk assessment: No Falls in past year Last assessed Fall Risk: 12/30/24 Dental Screening Dental Screen Date: 12/30/24 Did you have a dental visit in the last 12 months?: Yes Did you have a dental problem in the last 6 months where you did not have access to dental care?: No Was dental information given to patient?: Patient has dentist HPI Cold/Flu Symptoms HPI Details cold 1 week sore throat, and cough, no fevers, no sob and production The patient is an 89-year-old male presenting with symptoms suggestive of an upper respiratory tract infection, primarily characterized by a sore throat. The patient reports the onset of a sore throat which appears exacerbated during swallowing, although not accompanied by fever. The patient also experiences congestion and has been taking Mucinex, primarily to alleviate phlegm production. There has been no prior history of significant similar infections or previous treatment aside from the current symptomatic management with Mucinex. The patient denies any episodes of pain during swallowing and has not noted any fever. The sore throat seems to be the primary issue, with congestion being persistent.- HEENT: Reports sore throat, congestion. [facility] Medical History Anxiety and depression Acute effusion of both middle ears Skin cancer of nose Bradycardia, drug induced Bradycardia by electrocardiogram Atrial fibrillation Type 2 diabetes mellitus with hyperglycemia Diabetic nephropathy Hypercholesterolemia GERD (gastroesophageal reflux disease) Polymyalgia rheumatica Hypertension Coronary artery disease Surgical History History of cataract surgery History of tonsillectomy History of bilateral hip arthroplasty Left inguinal hernia Social History Housing: House Alcohol intake: former Patient Tobacco Use Status: Never used Tobacco Tobacco use type: Cigarette e-Cigarette/Vaping Use: Never Used Second Hand Smoke Exposure: No service: Yes Current occupational status: retired Cognitive needs: No Hearing needs: No Vision needs: Yes Questionnaire Thrive Questionnaire Date Thrive assessed: 02/26/24 [place]-7 AMB Questionnaire CAR[place]-7 Date CAR[place]INA - 7 assessed: 02/26/24 Source: Developed by Drs. Yaw Arriaga, Jelena Eric, Seth Jaime and colleagues, with an educational lesley from [facility]. Physical exam (Primary Care) Tobacco/Smoking Status: Tobacco use Status Tobacco use date assessed 12/30/24 12/30/24 10:07 Patient Tobacco Use Status Never used Tobacco 12/30/24 10:07 Tobacco use type Cigarette 12/30/24 10:07 e-Cigarette/Vaping Use Never Used 12/30/24 10:07 Thrive Assessment: Date of Thrive Assessment Date Thrive assessed 02/26/24 12/30/24 10:07 Telehealth Telehealth Location of provider rendering services: practice address Location of patient: address on file Patient Identification confirmed using: Name, : Yes Telehealth method: video (Iphone) Patient verbally consented to treatment: Yes Patient verbally consented to billing insurance company: Yes Patient informed of any privacy concerns related to visit: Yes Minutes spent on Phone/Video with Pt.: 15 Coding Level of Care Code Tele Est Pt Level 3 (02255) Diagnoses Cough R05.9 Assessment & Plan Assessment & Plan (1) Cough: Code(s): R05.9 - Cough, unspecified Category: Medical Plan - Discontinue the use of Mucinex containing phenylephrine due to potential contraindications. - Prescription of an antibiotic to be picked up at [facility], though a viral cause is suspected, thus the antibiotic is primarily precautionary. - Recommend completion of viral testing at the hospital prior to commencing antibiotics, pending symptoms' persistence or escalation. During the consultation, we discussed that the symptoms present are likely due to a viral upper respiratory infection, which generally necessitates symptomatic treatment and may not require antibiotics. Nevertheless, an antibiotic p rescription has been issued as a precautionary measure, to be used if symptoms persist or worsen. It was conveyed that mucolytic agents like Mucinex might be helpful in managing phlegm but should be selected carefully to avoid contraindicated components such as phenylephrine for patients of advanced age or with specific contraindications. It was recommended that the patient undergo viral testing at the hospital to better ascertain the need for antibiotics. I advised the patient that 90% of such infections are viral in nature. - Discontinue Mucinex with phenylephrine. - Obtain the prescribed antibiotic from [facility]; commence only if symptoms worsen or as advised after testing. - Schedule viral testing at the hospital to confirm the nature of the infection. - Monitor symptoms and maintain adequate hydration. - Return for follow-up or seek care if symptoms do not improve or worsen significantly. Orders: Orders SARS-COV-2 IgG Miguel, Semi-Qnt Today R05.9 - Cough, unspecified Medications: New azithromycin (Zithromax) For 250 mg dose pack: take 500 mg today (day 1), then 250 mg for 4 days (days 2-5) PO 6 tabs 0RF R05.9 - Cough, unspecified
== END 2024-12-30 11:43 | disposition home or self-care (01) ==
LOC: HO.HMCH 10:04
PROVIDERS: PCP Internal Medicine; Visit Provider Internal Medicine
DX: R05.9 Cough, unspecified (principal)

== ENCOUNTER → 2024-12-30 10:04 | Outpatient (BNVA) | payer OTHER, SELFPAY | PROVIDERS: PCP Internal Medicine; Visit Provider Internal Medicine ==

== ENCOUNTER 2025-02-14 08:45 | Outpatient (AMB) | payer MEDICARE, OTHER, SELFPAY ==
[2025-02-14 08:52] VITALS: BP 140/70; PULSE 64; TEMP 37; O2SAT 94; BMI 27.4
--- NOTE | 2025-02-14 08:52 | AM.OFFWIN_ITS ---
Intake Vital Signs 02/14/25 08:52 Height 5 ft 7 in Weight 175 lb BMI 27.4 BP 140/70 H Blood Pressure Location Rt brachial Position Sitting Pulse 64 Pulse Source Pulse Oximeter Temp 98.6 F Temp Source Oral Pulse Oximetry (%) 94 Oxygen Delivery Method Room Air Intake Visit Reasons: EP-sinus infection Intake Note: pt is here for sinus infection Patient Tobacco Use Status: Never used Tobacco Allergies Sulfa (Sulfonamide Antibiotics) Allergy (Unknown, Verified 02/14/25 08:53) general sickness Do you need a note to return to daycare/school/sports/work: No HPI HPI Comments History of Present Illness Details History - The patient is an 89 year old male pre senting with ongoing sinus congestion and related symptoms. - He reports a two to three-week history of sinus issues with fluctuating severity. - Saline-based interventions, including Triamcinolone nasal spray, have been attempted without complete symptom resolution. - No headache, significant shortness of breath, wheezing or sore throat is present, though mucus production is noted. - The patient reports general malaise an d slight impacts on appetite due to the condition. Physical Exam General: Cooperative, healthy appearing, comfortable and no acute distress Orientation/consciousness: Patient oriented x3 Limitations: No limitations Head: Normal to inspection Ears: Hearing grossly normal bilaterally, external ears normal, TM right with scant fluid, left TM normal Nose: Normal external nose present, Normal nares present and No nasal discharge present Face and sinus: Normal facial exam and Yes sinuses nontender Mouth: Normal oral and palatal mucosa present and moist mucous membranes Throat: Yes tonsils normal, Yes uvula midline. Posterior oropharynx erythema with cobblestoning Eyes: Appearance normal, both eyes and all related structures Neck: Normal visual inspection Respiratory: Normal respiratory effort, able to speak in complete sentences, no respiratory distress, not tachypneic, no tripod positioning and no use of accessory muscles Skin: No rashes or lesions noted Neuro: Patient oriented x3 Extremities: Normal to inspection and Yes no clubbing, cyanosis or edema [facility] Medical History Anxiety and depression Acute effusion of both middle ears Skin cancer of nose Bradycardia, drug induced Bradycardia by electrocardiogram Atrial fibrillation Type 2 diabetes mellitus with hyperglycemia Diabetic nephropathy Hypercholesterolemia GERD (gastroesophageal reflux disease) Polymyalgia rheumatica Hypertension Coronary artery disease Surgical History History of cataract surgery History of tonsillectomy History of bilateral hip arthroplasty Left inguinal hernia Social History Housing: House Alcohol intake: former Patient Tobacco Use Status: Never used Tobacco Tobacco use type: Cigarette e-Cigarette/Vaping Use: Never Used Second Hand Smoke Exposure: No service: Yes Current occupational status: retired Cognitive needs: No Hearing needs: No Vision needs: Yes Review of Systems Const All systems reviewed & are unremarkable except as noted in HPI and below Physical Exam Vital Signs: Last Vital Signs Temp 98.6 F 02/14/25 08:52 Pulse 64 02/14/25 08:52 BP 140/70 H 02/14/25 08:52 Pulse Ox 94 02/14/25 08:52 Oxygen Delivery Method Room Air 02/14/25 08:52 BMI result Body Mass Index 27.4 Assessment & Plan Assessment & Plan (1) Acute bacterial sinusitis: Code(s): J01.90 - Acute sinusitis, unspecified; B96.89 - Other specified bacterial agents as the cause of diseases classified elsewhere Plan: The sinus symptoms were determined to likely stem from sinusitis, as it has been a few weeks with no improvement, could be bacterial for which Augmentin was prescribed. The patient expressed willingness to use a neti pot with distilled water to facilitate sinus drainage and was advised to continue with saline nasal spray for symptom management. Alert to possible allergic rhinitis, the patient was advised on strategies for allergen avoidance and a daily allergy pill. Patient was informed and verbally consented to the use of an ambient scribe for clinic note documentation during this visit Medications: New amoxicillin-pot clavulanate 875-125 mg 1 tab PO Q12H 10 tabs 0RF Coding Level of Care Code Est Pt Level 3 (09646) Diagnoses Acute bacterial sinusitis J01.90; B96.89
== END 2025-02-14 09:31 | disposition home or self-care (01) ==
PROVIDERS: PCP Internal Medicine; Visit Provider Physician Assistant
DX: J01.90 Acute sinusitis, unspecified (principal); B96.89 Other specified bacterial agents as the cause of diseases classified elsewhere

== ENCOUNTER → 2025-02-14 08:45 | Outpatient (BNVA) | payer MEDICARE, OTHER, SELFPAY | PROVIDERS: PCP Internal Medicine; Visit Provider Physician Assistant | DX: J01.90 Acute sinusitis, unspecified (principal); B96.89 Other specified bacterial agents as the cause of diseases classified elsewhere | CPT/HCPCS: 99212 ==

== ENCOUNTER 2025-04-15 09:25 | Outpatient (REF) | payer SELFPAY ==
--- NOTE | 2025-04-15 10:44 | MHC.AU.HA3 ---
Hearing Instrument Follow-Up- Binaural Date of Visit: 04/15/25 Right Ear: Pa, Model, Color, Serial Number: Nirmal Gold [id number] Color: Heather Black S#[id number] Parking Supervisor Repair Warranty: 11/24/2027 Parking Supervisor Loss and Damage Warranty: 11/24/2027 [facility] Service Plan: n/a Battery Size: 312 Post Anesthesia Care Unit Nurse/Slim Tube: 1M Earmold/Dome/CShell/SlimTip:Med vented dome (no retention tail) Type of Wax Guard: CeruStop Dispensed By: [facility] Date of Fittin11/29/24 Left Ear: Pa, Model, Color, Serial Number: Nirmal Gold [id number] Color: Velvet Black S#[id number] Parking Supervisor Repair Warranty: 11/24/2027 Parking Supervisor Loss and Damage Warranty: 11/24/2027 [facility] Service Plan: n/a Battery Size: 312 Post Anesthesia Care Unit Nurse/Slim Tube: 1M Earmold/Dome/CShell/SlimTip: Med vented dome (no retention tail) Type of Wax Guard: CeruStop Dispensed By: [facility] Date of Fittin11/29/24 Follow-Up Summary: George reports intermittent squeaking sound from the left hearing aid, seems to happen when watching TV. Cleaned aids, replaced domes and wax guards, ran through dehumidifier. Listening check positive. Ran feedback. Still getting some feedback in office. Switched to Med domes. Fit is good. Ran feedback again. Improvement noted. Gave 1 pack of Med dome. Recommendations: Recommendations: Hearing instrument follow-up or maintenance as needed. Patient will call if problems persist. Diagnosis Code(s): Primary Diagnosis: H90.3 Bilateral Sensorineural Hearing Loss Signature: Provider: Ute Laureano, [facility]
== END 2025-04-15 09:26 | disposition home or self-care (01) ==
LOC: HO.HAP 09:25
PROVIDERS: Visit Provider Internal Medicine
DX: Z46.1 Encounter for fitting and adjustment of hearing aid (principal); H90.3 Sensorineural hearing loss, bilateral
CPT/HCPCS: 92593

== ENCOUNTER 2025-05-04 07:51 | Outpatient (REF) | payer OTHER, MEDICARE, SELFPAY ==
[2025-05-04 10:03] LABS: Appearance Urine Clear; Color Urine Yellow; Glucose Urine UA 500 mg/dL (Negative); Leukocyte Esterase Urine Negative (Negative); Nitrite Urine Negative (Negative); PH 6.5 (5.0-9.0); Urine Blood Negative (Negative); Urine Ketones Negative (Negative); Urine Protein Negative (Neg-Trace)
[2025-05-04 10:06] LABS: MANUAL DIFF FLAG NO
[2025-05-04 10:07] LABS: Bacteria Urine None Seen (None Seen); Hyaline Casts Urine 0-2 /LPF (0-2); RBC Urine 0-2 /HPF (0-2); Squamous Epithelial Cell Urine 0-2 /HPF (0-2); WBC Urine 0-5 /HPF (0-5)
[2025-05-04 10:19] LABS: Basophils Absolute Auto 0.1 X10*3/uL (0.0-0.2); Eosinophils Absolute Auto 0.2 X10*3/uL (0.0-0.4); Eosinophils Percent Auto 4.4 % (0-4); Hematocrit 36.8 % (42.0-52.0); Hemoglobin 11.6 g/dl (14.0-18.0); Imm Gran Abs Auto 0.02 X10*3/uL (0.00-0.03); Imm Gran Pct Auto 0.4 % (0.0-0.4); Immature Retic Fraction 17.5 % (2.3-13.4); Lymphocytes Absolute Auto 1.4 X10*3/uL (1.2-4.9); Lymphocytes Percent Auto 26.9 % (20-40); Mean Corpuscular HGB Conc 31.5 g/dl (31.0-36.0); Mean Corpuscular Hemoglobin 26.2 pg (27.0-33.0); Mean Corpuscular Volume 83.3 fL (80.0-98.0); Mean Platelet Volume 9.3 fL (9.4-12.4); Monocytes Absolute Auto 0.4 X10*3/uL (0.1-1.2); Monocytes Percent Auto 8.5 % (2-11); Neutrophils Percent Auto 58.8 % (45-73); Platelet Count 220 X10*3/uL (160-400); Red Blood Count 4.42 X10*6/uL (4.60-5.80); Red Cell Distribution Width 14.6 % (11.0-16.0); Retic HGB Equivalent 31.1 pg (30.0-35.0); Reticulocyte Percent 1.1 % (0.5-1.8); Reticulocytes Absolute 0.049 X10*6/uL (0.026-0.095); White Blood Count 5.1 X10*3/uL (4.8-10.8)
[2025-05-04 10:38] LABS: Creatinine Urine 69.03 mg/dL; Microalbum/Creatinine Ratio Ur 17.3 ug/mg cr (<30)
[2025-05-04 10:39] LABS: Estimated Average Glucose 154 mg/dL
[2025-05-04 11:19] LABS: B Type Natriuretic Peptide 175 pg/mL (<100)
[2025-05-04 11:21] LABS: Alanine Aminotransferase 13 U/L (0-40); Anion Gap 14 (12-20); Aspartate Amino Transferase 24 U/L (5-37); Bilirubin Total 0.4 mg/dL (0.0-1.0); Blood Urea Nitrogen 32 mg/dL (9-16); Carbon Dioxide 26 mmol/L (22-29); Chloride 106 mmol/L (96-108); Cholesterol 110 mg/dL (<200); Estimated Glomerular Filt Rate 56; Glucose Random 161 mg/dL (60-115); HDL Cholesterol 36 mg/dL (>40); Iron 40 mcg/dL (45-160); LDL Cholesterol Calculated 50 mg/dL (<100); Percent Iron Saturation 13 % (15-50); Potassium 4.6 mmol/L (3.3-5.1); Sodium 141 mmol/L (135-145); Total Iron Binding Capacity 307 mcg/dL (228-428); Total Protein 6.5 g/dL (6.5-8.0); Triglycerides 121 mg/dL (<150); Unsaturated Iron Binding 267 ug/dL
[2025-05-04 11:34] LABS: Folate 14.9 ng/mL (> or = 4.0); Vitamin B12 385 pg/mL (200-900)
[2025-05-04 11:44] LABS: Ferritin 13 ng/mL (20-250); Free T4 (Free Thyroxine) 1.03 ng/dL (0.71-1.85); Thyroid Stimulating Hormone 2.05 uIU/mL (0.32-4.0)
[2025-05-04 13:10] LABS: Alkaline Phosphatase 59 U/L (39-117)
== END 2025-05-04 07:52 | disposition home or self-care (01) ==
LOC: HO.HMGCLDS 07:51
PROVIDERS: PCP Internal Medicine; Visit Provider Internal Medicine
DX: E11.65 Type 2 diabetes mellitus with hyperglycemia (principal); E78.00 Pure hypercholesterolemia, unspecified
CPT/HCPCS: 36415; 80053; 80061; 81001; 82043; 82570; 82607; 82728; 82746; 83036; 83540; 83880; 84439; 84443; 85025; 85045

== ENCOUNTER 2025-05-09 13:21 | Outpatient (AMB) | payer MEDICARE, OTHER, SELFPAY ==
[2025-05-09 13:29] VITALS: BP 148/54; PULSE 58; O2SAT 98; BMI 27.5
--- NOTE | 2025-05-09 13:29 | MHC.PC.OV ---
Vital Signs 05/09/25 13:29 Height 5 ft 7 in Weight 175 lb 6 oz BMI 27.5 BP 148/54 H Blood Pressure Location Lt brachial Position Sitting Pulse 58 Pulse Source Pulse Oximeter Pulse Oximetry (%) 98 Oxygen Delivery Method Room Air Intake Visit Reasons: DM [facility] Location Manager Required: No Accompanied by: Self / Same As Patient Allergies Sulfa (Sulfonamide Antibiotics) Allergy (Unknown, Verified 05/09/25 13:30) general sickness Medication List - Last Reconciled 05/09/25 by Jesse Chaudhry MD amoxicillin-pot clavulanate 875-125 mg 1 tab PO Q12H apixaban (Eliquis) 5 mg PO BID ascorbate calcium (vitamin C) 500 mg PO DAILY blood sugar diagnostic (Favim Ultra Blue Test Strip) As directed check the blood sugars once a day blood sugar diagnostic As directed calcium carbonate-vitamin D3 600 mg-5 mcg (200 unit) (Calcium 600 + D(3)) caps PO carvedilol 12.5 mg PO BID 90 days clopidogrel (Plavix) 75 mg PO DAILY diclofenac sodium 1% (Voltaren Arthritis Pain) 4 grams topical QID empagliflozin (Jardiance) 10 mg PO DAILY felodipine ER 10 mg PO DAILY ferrous sulfate 325 mg PO DAILY hydrochlorothiazide 25 mg PO DAILY isosorbide mononitrate ER 60 mg PO DAILY ketoconazole 2% 1 appl topical BID lisinopril 40 mg PO DAILY metformin 1,000 mg (2 x 500 mg) PO BID nitroglycerin (Nitrostat) 0.4 mg sublingual Q5M PRN omega-3 fatty acids 1,000 mg PO DAILY pantoprazole 20 mg PO DAILY rosuvastatin 20 mg PO DAILY spironolactone 25 mg PO DAILY triamcinolone acetonide (Nasacort) 2 sprays intranasal DAILY triamcinolone acetonide (Nasacort) 2 sprays intranasal DAILY Tobacco use date assessed: 05/09/25 Fall risk assessment: No Falls in past year Last assessed Fall Risk: 05/09/25 Dental Screening Dental Screen Date: 05/09/25 Did you have a dental visit in the last 12 months?: Yes Did you have a dental problem in the last 6 months where you did not have access to dental care?: No Was dental information given to patient?: Patient has dentist [facility] Medical History Anxiety and depression Acute effusion of both middle ears Skin cancer of nose Bradycardia, drug induced Bradycardia by electrocardiogram Atrial fibrillation Type 2 diabetes mellitus with hyperglycemia Diabetic nephropathy Hypercholesterolemia GERD (gastroesophageal reflux disease) Polymyalgia rheumatica Hypertension Coronary artery disease Surgical History History of cataract surgery History of tonsillectomy History of bilateral hip arthroplasty Left inguinal hernia Social History Housing: House Alcohol intake: former Patient Tobacco Use Status: Never used Tobacco Tobacco use type: Cigarette e-Cigarette/Vaping Use: Never Used Second Hand Smoke Exposure: No service: Yes Current occupational status: retired Cognitive needs: No Hearing needs: No Vision needs: Yes Questionnaire PHQ-9 Over the last 2 weeks, how often have you been bothered by any of the following problems? 1. Little interest or pleasure in doing things: not at all 2. Feeling down, depressed, or hopeless: not at all 3. Trouble falling or staying asleep, or sleeping too much: not at all 4. Feeling tired or having little energy: not at all 5. Poor appetite or overeating: not at all 6. Feeling bad about yourself - or that you are a failure or have let yourself or your family down: not at all 7. Trouble concentrating on things, such as reading the newspaper or watching television: not at all 8. Moving or speaking so slowly that other people could have noticed. Or the opposite - being so fidgety or restless that you have been moving around a lot more than usual: not at all 9. Thoughts that you would be better off or of hurting yourself in some way: not at all Total score: 0 Source: Developed by Drs. Yaw Arriaga, Jelena Eric, Seth Jaime and colleagues, with an educational lesley from [employer]. Thrive Questionnaire Date Thrive assessed: 05/09/25 I am a: Patient What is your living situation today?: I have a steady place to live Within the past 12 months, did the food you bought not last and you didn't have the money to get more?: Never true Within the past 12 months, did you worry whether your food would run out before you got money to buy more?: Never true Do you have trouble paying for medicines?: No Do you have trouble getting transportation to medical appointments?: No Do you have trouble paying your heating and electricity bill?: No Do you have trouble taking care of your child, family member or friend?: No Do you have trouble with day-to-day activities such as bathing, preparing meals, shopping, managing finances, etc.?: No Are you currently unemployed and looking for a job?: No Are you interested in more education?: No Please select the resources that you would like help with: None Currently or been in a relationship where the following occur: No concerns reported THRIVE Score: 0 AUDIT C Alcohol Use Questionnaire (AUDIT-C) 1. How often do you have a drink containing alcohol?: Never 3. How often do you have six or more drinks on one occasion?: Never Total Score: 0 CAROLINA-7 AMB Questionnaire CAROLINA-7 Date CAROLINA - 7 assessed: 05/09/25 Feeling nervous, anxious, or on edge: 0 = Not at all Not being able to stop or control worryin = Not at all Worrying too much about different things: 0 = Not at all Trouble relaxin = Not at all Being so restless that it is hard to sit still: 0 = Not at all Becoming easily annoyed or irritable: 0 = Not at all Feeling afraid as if something awful might happen: 0 = Not at all Total CAROLINA-7 score (0-4 normal; 5-9 mild; 10-14 moderate; 15-21 severe): 0 Source: Developed by Drs. Yaw Arriaga, Jelena Eric, Seth Jaime and colleagues, with an educational lesley from [employer]. Physical exam (Primary Care) Vital Signs: Last Vital Signs Pulse 58 05/09/25 13:29 BP 148/54 H 05/09/25 13:29 Pulse Ox 98 05/09/25 13:29 Oxygen Delivery Method Room Air 05/09/25 13:29 BMI result Body Mass Index 27.5 Tobacco/Smoking Status: Tobacco use Status Tobacco use date assessed 05/09/25 05/09/25 13:35 Patient Tobacco Use Status Never used Tobacco 05/09/25 13:35 Tobacco use type Cigarette 05/09/25 13:35 e-Cigarette/Vaping Use Never Used 05/09/25 13:35 PHQ-9: PHQ-9 Score PHQ-9: Total score 0 05/09/25 14:13 Thrive Assessment: Date of Thrive Assessment Date Thrive assessed 05/09/25 05/09/25 13:35 Currently or been in a relationship where the following occur: No concerns reported Const General: alert; No acute distress Eyes Conjunctivae: conjunctivae normal Resp Auscultation: clear to auscultation bilaterally Cardio Rate: regular rate Rhythm: regular rhythm GI Inspection: Yes normal to inspection Extrem General: Yes normal to inspection and No edema Coding Level of Care Code Est Pt Level 4 (96885) Complex EM visit Add On G2211 Diagnoses Iron deficiency anemia D50.9 Paroxysmal atrial fibrillation I48.0 Atrial fibrillation type: paroxysmal Generalized anxiety disorder F41.1 Type 2 diabetes mellitus with hyperglycemia, without long-term current use of insulin E11.65 Diabetes mellitus local intermodal truck driver insulin use: without local intermodal truck driver use Hypercholesterolemia E78.00 Gastroesophageal reflux disease without esophagitis K21.9 Esophagitis presence: without esophagitis Essential hypertension I10 Hypertension type: essential hypertension Coronary artery disease involving [place] coronary artery of [place] heart without angina pectoris I25.10 Associated angina: without angina Coronary Disease-Associated Artery/Lesion type: [place] artery [place] vs. transplanted heart: [place] heart Assessment & Plan Assessment & Plan (1) Iron deficiency anemia: Code(s): D50.9 - Iron deficiency anemia, unspecified Category: Medical Plan: With the patient regarding iron deficiency anemia and the need to take iron and vitamin-C (2) Atrial fibrillation: Comment: Paroxysmal 2014 Dr. Gong Code(s): I48.91 - Unspecified atrial fibrillation Category: Medical Qualifiers: Atrial fibrillation type: paroxysmal Qualified Code(s): I48.0 - Paroxysmal atrial fibrillation Plan: Patient on Eliquis 5 mg twice a day need to have renal function testing twice a day year at least (3) Generalized anxiety disorder: Code(s): F41.1 - Generalized anxiety disorder Category: Medical Plan: Stable (4) Type 2 diabetes mellitus with hyperglycemia: Comment: eye Dr. Adam Madera Code(s): E11.65 - Type 2 diabetes mellitus with hyperglycemia Category: Medical Qualifiers: Diabetes mellitus longterm insulin use: without local intermodal truck driver use Qualified Code(s): E11.65 - Type 2 diabetes mellitus with hyperglycemia Plan: Decrease the amount of carbohydrate intake, pasta, bread, rice and potatoes are all sugar and that is aside from all the sweet stuff, remember that fruits are good but they are Sweet also. Hemoglobin A1c goal of less than 7.0 patient on Jardiance 10 mg once a day metformin a 1000 mg twice a day (5) Hypercholesterolemia: Code(s): E78.00 - Pure hypercholesterolemia, unspecified Category: Medical Plan: Avoid fried foods, chicken skin, eggs, butter margarine, pastries and meat. Be it pork or beef they have a lot of cholesterol patient on rosuvastatin 20 mg once a day (6) GERD (gastroesophageal reflux disease): Code(s): K21.9 - Gastro-esophageal reflux disease without esophagitis Category: Medical Qualifiers: Esophagitis presence: without esophagitis Qualified Code(s): K21.9 - Gastro-esophageal reflux disease without esophagitis Plan: Avoid the foods that causes that usually spicy foods, tomato products, juices, coffee, soda and foods that your sensitive to. After eating do not lie down, allow 3-4 hours before in lie down. And keep the head of bed above 30 degrees to avoid the acid from going up. (7) Hypertension: Code(s): I10 - Essential (primary) hypertension Category: Medical Qualifiers: Hypertension type: essential hypertension Qualified Code(s): I10 - Essential (primary) hypertension Plan: Continue with blood pressure medication. Decrease salt intake and exercise patient on spironolactone 25 mg once a day lisinopril 40 mg once a day isosorbide mononitrate 60 mg once a day hydrochlorothiazide 25 mg once a day felodipine 10 mg once a day and carvedilol 12.5 mg once a day (8) Coronary artery disease: Comment: RCA stent 2007 [facility] of LAD March 2015 partial dissection of LAD post procedure Code(s): I25.10 - Atherosclerotic heart disease of [place] coronary artery without angina pectoris Category: Medical Qualifiers: Associated angina: without angina Coronary Disease-Associated Artery/Lesion type: [place] artery [place] vs. transplanted heart: [place] heart Qualified Code(s): I25.10 - Atherosclerotic heart disease of [place] coronary artery without angina pectoris Plan: Control the cholesterol, weight, blood pressure, diabetes on anticoagulation Plan History of Present Illness The patient is an 89-year-old male presenting for a follow-up on his chronic conditions. His medical history includes invasive coronary artery disease, hypertension, polymyalgia rheumatica, gastroesophageal reflux disease, diabetes mellitus, hypercholesterolemia, diabetic nephropathy, and atrial fibrillation. Notably, his last colonoscopy in 2003 revealed a tubular adenoma. Previously, in January 2025, he was treated for sinusitis with Augmentin. Recent lab results from May 04, 2025, showed chronic mild anemia and a ferritin level indicating iron deficiency. His kidney function remains stable, with appropriate sodium and potassium levels. His hemoglobin A1c is currently stable at 7.0 with a blood glucose level of 161. LDL cholesterol is optimal at 50, and thyroid function remains normal. He is on an extensive medication regimen, with adjustments discussed to manage iron deficiency anemia and to fine-tune his management of diabetes and hypertension. The patient was advised to increase his Jardiance dosage to support glucose control and possibly lower blood pressure. Iron supplements and concurrent use of vitamin C were recommended to address iron deficiency anemia. Health Maintenance - Blood glucose management with goal for a hemoglobin A1c below 7.0 - Iron supplementation for correction of iron deficiency anemia - Cholesterol management with rosuvastatin; LDL level target of below 70 - Discussed medication compliance to manage invasive coronary artery disease, hypertension, and other chronic conditions Social History - Patient monitors and manages his medications with a proactive approach - Reports trying to drink enough water and managing dietary intake - Discussed insurance coverage for Jardiance treatment cost Review of Systems - Cardiovascular: Reports occasional elevated blood pressure - Endocrine: Reports stable diabetes management; slight increase in blood glucose levels detected - Gastrointestinal: Denies current GERD symptoms, managed with medications - Hematologic: Reports past mild anemia; current treatment for iron deficiency - Respiratory: Treated for sinusitis in January Physical Exam Results - Lab: Mild anemia, ferritin level of 13 indicating iron deficiency - Lab: Blood glucose level at 161, hemoglobin A1c at 7.0 - Lab: Kidney function stable with creatinine level of 1.22 - Lab: LDL cholesterol level at 50 Plan 1. 0; thus, the dosage of Jardiance will be increased from 10 mg to 25 mg daily to help regulate blood sugar levels and improve secondary hypertension control. The patient was reminded that Jardiance has shown beneficial effects on kidney and heart health, which supports extensive use in such cases: The identified chronic mild anemia requires correction of iron deficiency, thus oral iron supplements accompanied by vitamin C were recommended to improve absorption. Monitoring of hemoglobin and iron studies in future visits will assess treatment response. Anticoagulation management with Eliquis and Plavix continues as vital protection against thromboembolic events given the patient's history of atrial fibrillation. Blood pressure management involves multiple antihypertensive agents to maintain adequate control. Continued use of rosuvastatin supports lipid levels, ensuring LDL remains below 70, promoting cardiovascular and overall vascular health. Patient was informed and verbally consented to the use of an ambient scribe for clinic note documentation during this visit. Discussion Notes I discussed with the patient the importance of managing diabetes, focusing on achieving a hemoglobin A1c level below 7.0, and the potential for increasing Jardiance to assist in managing both diabetes and hypertension. We reviewed iron deficiency management, including the necessity of oral iron supplementation and dietary vitamin C. I highlighted the stability of the current lipid and kidney function values, with ongoing monitoring emphasized. Additionally, we addressed the importance of adherence to anticoagulation therapy with Eliquis and Plavix due to the patient's atrial fibrillation history and encouraged routine monitoring of blood pressure given its mildly elevated status. Follow-up times were scheduled to reassess his condition and manage therapy effectively. Patient Instructions - Increase your Jardiance dose to 25 mg daily to manage diabetes better. - Take iron supplements regularly, accompanied by dietary vitamin C to improve absorption. - Continue taking your antihypertensives and anticoagulation medications as prescribed. - Monitor blood pressure at home. - Report any new symptoms or complications related to your health conditions. - Schedule follow-up visits to assess ongoing treatment efficacy. Orders: Orders Hemoglobin A1c 3 Months D50.9 - Iron deficiency anemia, unspecified Ferritin 3 Months D50.9 - Iron deficiency anemia, unspecified Complete Blood Count Auto Diff 3 Months D50.9 - Iron deficiency anemia, unspecified Comprehensive Met. Panel 3 Months D50.9 - Iron deficiency anemia, unspecified IRON PROFILE 3 Months D50.9 - Iron deficiency anemia, unspecified Vitamin B12 and Folate 3 Months D50.9 - Iron deficiency anemia, unspecified Reticulocyte Count 3 Months D50.9 - Iron deficiency anemia, unspecified Medications: New triamcinolone acetonide (Nasacort) administer into each nostril 2 sprays intranasal DAILY 16.9 mL 0RF Changed From empagliflozin (Jardiance) 10 mg PO DAILY 30 tabs 3RF E11.65 - Type 2 diabetes mellitus with hyperglycemia To empagliflozin 25 mg PO DAILY 90 tabs 3RF E11.65 - Type 2 diabetes mellitus with hyperglycemia
== END 2025-05-09 14:28 | disposition home or self-care (01) ==
LOC: HO.HMCH 13:22
PROVIDERS: PCP Internal Medicine; Visit Provider Internal Medicine
DX: D50.9 Iron deficiency anemia, unspecified (principal); I48.0 Paroxysmal atrial fibrillation; F41.1 Generalized anxiety disorder; E11.65 Type 2 diabetes mellitus with hyperglycemia; E78.00 Pure hypercholesterolemia, unspecified; K21.9 Gastro-esophageal reflux disease without esophagitis; I10 Essential (primary) hypertension; I25.10 Atherosclerotic heart disease of native coronary artery without angina pectoris

== ENCOUNTER → 2025-05-09 13:21 | Outpatient (BNVA) | payer MEDICARE, OTHER, SELFPAY | PROVIDERS: PCP Internal Medicine; Visit Provider Internal Medicine | DX: D50.9 Iron deficiency anemia, unspecified (principal); I48.0 Paroxysmal atrial fibrillation; F41.1 Generalized anxiety disorder; E11.65 Type 2 diabetes mellitus with hyperglycemia; E78.00 Pure hypercholesterolemia, unspecified; K21.9 Gastro-esophageal reflux disease without esophagitis; I10 Essential (primary) hypertension; I25.10 Atherosclerotic heart disease of native coronary artery without angina pectoris | CPT/HCPCS: 99212 ==

== ENCOUNTER 2025-09-08 11:35 | Outpatient (AMB) | payer MEDICARE, OTHER, SELFPAY ==
--- NOTE | 2025-09-08 11:51 | A.OFFPC_ITS ---
Vital Signs 09/08/25 11:52 Height 5 ft 7 in Weight 174 lb BMI 27.2 BP 136/58 L Blood Pressure Location Lt brachial Position Sitting Pulse 59 Pulse Source Pulse Oximeter Temp 97.3 F Temp Source Temporal Artery Scan Pulse Oximetry (%) 98 Oxygen Delivery Method Room Air Intake Visit Reasons: DM, anemia Allergies Sulfa (Sulfonamide Antibiotics) Allergy (Unknown, Verified 09/08/25 11:55) general sickness Tobacco use date assessed: 09/08/25 Fall risk assessment: No Falls in past year Last assessed Fall Risk: 09/08/25 Dental Screening Dental Screen Date: 09/08/25 Did you have a dental visit in the last 12 months?: Yes Did you have a dental problem in the last 6 months where you did not have access to dental care?: No Was dental information given to patient?: Patient has dentist [facility] Medical History Anxiety and depression Acute effusion of both middle ears Skin cancer of nose Bradycardia, drug induced Bradycardia by electrocardiogram Atrial fibrillation Type 2 diabetes mellitus with hyperglycemia Diabetic nephropathy Hypercholesterolemia GERD (gastroesophageal reflux disease) Polymyalgia rheumatica Hypertension Coronary artery disease Surgical History History of cataract surgery History of tonsillectomy History of bilateral hip arthroplasty Left inguinal hernia Social History Housing: House Alcohol intake: former Patient Tobacco Use Status: Never used Tobacco Tobacco use type: Cigarette e-Cigarette/Vaping Use: Never Used Second Hand Smoke Exposure: No service: Yes Current occupational status: retired Cognitive needs: No Hearing needs: No Vision needs: Yes Questionnaire PHQ-9 Over the last 2 weeks, how often have you been bothered by any of the following problems? 1. Little interest or pleasure in doing things: not at all 2. Feeling down, depressed, or hopeless: not at all 3. Trouble falling or staying asleep, or sleeping too much: not at all 4. Feeling tired or having little energy: not at all 5. Poor appetite or overeating: not at all 6. Feeling bad about yourself - or that you are a failure or have let yourself or your family down: not at all 7. Trouble concentrating on things, such as reading the newspaper or watching television: not at all 8. Moving or speaking so slowly that other people could have noticed. Or the opposite - being so fidgety or restless that you have been moving around a lot more than usual: not at all 9. Thoughts that you would be better off or of hurting yourself in some way: not at all Total score: 0 Source: Developed by Drs. Yaw Arriaga, Jelena Eric, Seth Jaime and colleagues, with an educational lesley from [employer]. Thrive Questionnaire Date Thrive assessed: 05/09/25 I am a: Patient What is your living situation today?: I have a steady place to live Within the past 12 months, did the food you bought not last and you didn't have the money to get more?: Never true Within the past 12 months, did you worry whether your food would run out before you got money to buy more?: Never true Do you have trouble paying for medicines?: No Do you have trouble getting transportation to medical appointments?: No Do you have trouble paying your heating and electricity bill?: No Do you have trouble taking care of your child, family member or friend?: No Do you have trouble with day-to-day activities such as bathing, preparing meals, shopping, managing finances, etc.?: No Are you currently unemployed and looking for a job?: No Are you interested in more education?: No Please select the resources that you would like help with: None Currently or been in a relationship where the following occur: No concerns reported THRIVE Score: 0 AUDIT C Alcohol Use Questionnaire (AUDIT-C) 1. How often do you have a drink containing alcohol?: Never 3. How often do you have six or more drinks on one occasion?: Never Total Score: 0 CAROLINA-7 AMB Questionnaire CAROLINA-7 Date CAROLINA - 7 assessed: 05/09/25 Feeling nervous, anxious, or on edge: 0 = Not at all Not being able to stop or control worryin = Not at all Worrying too much about different things: 0 = Not at all Trouble relaxin = Not at all Being so restless that it is hard to sit still: 0 = Not at all Becoming easily annoyed or irritable: 0 = Not at all Feeling afraid as if something awful might happen: 0 = Not at all Total CAROLINA-7 score (0-4 normal; 5-9 mild; 10-14 moderate; 15-21 severe): 0 Source: Developed by Drs. Yaw Arriaga, Jelena Eric, Seth Jaime and colleagues, with an educational lesley from [employer]. Physical exam (Primary Care) Vital Signs: Last Vital Signs Temp 97.3 F 09/08/25 11:52 Pulse 59 09/08/25 11:52 BP 136/58 L 09/08/25 11:52 Pulse Ox 98 09/08/25 11:52 Oxygen Delivery Method Room Air 09/08/25 11:52 BMI result Body Mass Index 27.2 Tobacco/Smoking Status: Tobacco use Status Tobacco use date assessed 09/08/25 09/08/25 11:56 Patient Tobacco Use Status Never used Tobacco 09/08/25 11:56 Tobacco use type Cigarette 09/08/25 11:56 e-Cigarette/Vaping Use Never Used 09/08/25 11:56 PHQ-9: PHQ-9 Score PHQ-9: Total score 0 09/08/25 12:11 Thrive Assessment: Date of Thrive Assessment Date Thrive assessed 05/09/25 09/08/25 11:56 Currently or been in a relationship where the following occur: No concerns reported Const General: alert; No acute distress Eyes Conjunctivae: conjunctivae normal Resp Auscultation: clear to auscultation bilaterally Cardio Rate: regular rate Rhythm: regular rhythm GI Inspection: Yes normal to inspection Extrem General: Yes normal to inspection and No edema Results AMB Hemoglobin A1c AMB Hemoglobin A1c 7.2 % Last Edit by Lisa Ramos CMA on 09/08/25 12:00 Results Reviewed Results Reviewed: Laboratory Last Values Hgb A1c (Clinic) 7.2 % (4.0-6.0) H 09/08/25 11:56 Coding Level of Care Code Est Pt Level 4 (13334) Complex EM visit Add On G2211 Diagnoses Type 2 diabetes mellitus with hyperglycemia, without long-term current use of insulin E11.65 Diabetes mellitus fdc insulin use: without watermelon harvesting supervisor use Essential hypertension I10 Hypertension type: essential hypertension Hypercholesterolemia E78.00 Paroxysmal atrial fibrillation I48.0 Atrial fibrillation type: paroxysmal Coronary artery disease involving [place] coronary artery of [place] heart without angina pectoris I25.10 Associated angina: without angina Coronary Disease-Associated Artery/Lesion type: [place] artery [place] vs. transplanted heart: [place] heart Iron deficiency anemia D50.9 Gastroesophageal reflux disease without esophagitis K21.9 Esophagitis presence: without esophagitis Generalized anxiety disorder F41.1 Assessment & Plan Assessment & Plan (1) Type 2 diabetes mellitus with hyperglycemia: Comment: eye Dr. Adam Madera Code(s): E11.65 - Type 2 diabetes mellitus with hyperglycemia Category: Medical Qualifiers: Diabetes mellitus fdc insulin use: without fdc use Qualified Code(s): E11.65 - Type 2 diabetes mellitus with hyperglycemia Plan: Decrease the amount of carbohydrate intake, pasta, bread, rice and potatoes are all sugar and that is aside from all the sweet stuff, remember that fruits are good but they are Sweet also. Presently on Jardiance 25 mg once a day metformin a 1000 mg twice a day (2) Hypertension: Code(s): I10 - Essential (primary) hypertension Category: Medical Qualifiers: Hypertension type: essential hypertension Qualified Code(s): I10 - Essential (primary) hypertension Plan: Continue with blood pressure medication. Decrease salt intake and exercise patient takes spironolactone 25 mg once a day lisinopril 40 mg once a day hydrochlorothiazide 25 mg once a day felodipine at 10 mg once a day carvedilol 12.5 mg twice a day (3) Hypercholesterolemia: Code(s): E78.00 - Pure hypercholesterolemia, unspecified Category: Medical Plan: Avoid fried foods, chicken skin, eggs, butter margarine, pastries and meat. Be it pork or beef they have a lot of cholesterol LDL goal of less than 70 and triglyceride of less than 150 on rosuvastatin 20 mg once a day (4) Atrial fibrillation: Comment: Paroxysmal 2014 Dr. Gong Code(s): I48.91 - Unspecified atrial fibrillation Category: Medical Qualifiers: Atrial fibrillation type: paroxysmal Qualified Code(s): I48.0 - Paroxysmal atrial fibrillation Plan: Continue with anticoagulation May 2025 last blood work. Patient also on Plavix (5) Coronary artery disease: Comment: RCA stent 2007 [place] of LAD March 2015 partial dissection of LAD post procedure Code(s): I25.10 - Atherosclerotic heart disease of [place] coronary artery without angina pectoris Category: Medical Qualifiers: Associated angina: without angina Coronary Disease-Associated Artery/Lesion type: [place] artery [place] vs. transplanted heart: [place] heart Qualified Code(s): I25.10 - Atherosclerotic heart disease of [place] coronary artery without angina pectoris Plan: Control the cholesterol, weight, blood pressure, diabetes on anticoagulation (6) Iron deficiency anemia: Code(s): D50.9 - Iron deficiency anemia, unspecified Category: Medical Plan: Patient needs to have repeat blood work. Continue with iron and vitamin-C (7) GERD (gastroesophageal reflux disease): Code(s): K21.9 - Gastro-esophageal reflux disease without esophagitis Category: Medical Qualifiers: Esophagitis presence: without esophagitis Qualified Code(s): K21.9 - Gastro-esophageal reflux disease without esophagitis Plan: Avoid the foods that causes that usually spicy foods, tomato products, juices, coffee, soda and foods that your sensitive to. After eating do not lie down, allow 3-4 hours before in lie down. And keep the head of bed above 30 degrees to avoid the acid from going up. (8) Generalized anxiety disorder: Code(s): F41.1 - Generalized anxiety disorder Category: Medical Plan History of Present Illness The patient is an 89-year-old male presenting for a follow-up visit. The patient has a history of coronary artery disease, hypertension, gastroesophageal reflux disease, diabetes mellitus, hypercholesterolemia, atrial fibrillation, and lumbar degenerative disc disease. He was last seen in May 2025 and is currently on multiple medications including Jardiance, metformin, spironolactone, lisinopril, hydrochlorothiazide, amlodipine, rosuvastatin, and carvedilol. The patient reports a history of iron deficiency anemia with a hemoglobin level of 11.6 g/dL noted in the last blood work done on May 04. He is currently taking iron and vitamin C supplements to address this deficiency. The patient's hemoglobin A1c was recorded at 7.2%, indicating suboptimal control of diabetes mellitus. He is on Jardiance and metformin for diabetes management, but reports difficulty in maintaining exercise due to back issues related to lumbar degenerative disc disease. The patient's cholesterol management is effective with an LDL level of 50 mg/dL, meeting the goal of less than 70 mg/dL. He is on rosuvastatin for hypercholesterolemia management. Preventative care measures include a colonoscopy, which is overdue since 2003. Health Maintenance - Vaccinations: Up to date with flu and COVID-19 vaccines - Screening: Colonoscopy overdue since 2003 - Lifestyle: Advised to manage diabetes through diet and exercise, though limited by back issues Social History - Exercise: Limited due to back issues related to lumbar degenerative disc disease - Nutrition: Consumes fruit, possibly in excess affecting blood sugar levels Review of Systems - Cardiovascular: Denies chest pain, reports stable blood pressure - Endocrine: Reports difficulty controlling blood sugar, hemoglobin A1c at 7.2% - Musculoskeletal: Reports limited exercise due to back pain - Gastrointestinal: Denies significant issues, managed with current GERD treatment Physical Exam Results - Labs: Hemoglobin 11.6 g/dL, indicating anemia - Labs: Hemoglobin A1c 7.2%, indicating suboptimal diabetes control - Labs: LDL cholesterol 50 mg/dL, within target range Plan Patient was informed and verbally consented to the use of an ambient scribe for clinic note documentation during this visit. 1. Coronary Artery Disease The patient is on anticoagulation therapy and carvedilol for coronary artery disease management. Continued monitoring of blood pressure and cholesterol levels is recommended. 2. Hypertension The patient is currently on spironolactone, lisinopril, hydrochlorothiazide, and amlodipine for hypertension management. Blood pressure is stable with current treatment regimen. 3. Diabetes Mellitus The patient's diabetes is managed with Jardiance and metformin. Hemoglobin A1c is 7.2%, indicating a need for improved glycemic control. Dietary modifications and increased physical activity are advised, though limited by back issues. 4. Hypercholesterolemia The patient is on rosuvastatin for hypercholesterolemia management. LDL cholesterol is well-controlled at 50 mg/dL. 5. Iron Deficiency Anemia The patient is taking iron and vitamin C supplements to address iron deficiency anemia. Repeat blood work is planned to monitor hemoglobin levels. 6. Preventative Care The patient is up to date with flu and COVID-19 vaccinations. A colonoscopy is overdue since 2003 and should be scheduled. Discussion Notes During the visit, we discussed the importance of maintaining blood pressure and cholesterol levels within target ranges to manage coronary artery disease and hypertension effectively. We also reviewed the patient's diabetes management plan, emphasizing the need for dietary modifications and increased physical activity to improve glycemic control. The patient was advised to continue current medications and to schedule a colonoscopy, which is overdue. Patient Instructions - Continue taking all prescribed medications as directed. - Schedule and complete a colonoscopy as soon as possible. - Maintain a balanced diet and try to incorporate physical activity within your limitations. - Monitor blood sugar levels regularly and aim to keep hemoglobin A1c below 7%. - Follow up with blood work to monitor hemoglobin levels and kidney function. Orders: Orders AMB Hemoglobin A1c Today Z13.9 - Encounter for screening, unspecified
[2025-09-08 11:52] VITALS: BP 136/58; PULSE 59; TEMP 36.3; O2SAT 98; BMI 27.2
== END 2025-09-08 12:27 | disposition home or self-care (01) ==
LOC: HO.HMCH 11:36
PROVIDERS: PCP Internal Medicine; Visit Provider Internal Medicine
DX: E11.65 Type 2 diabetes mellitus with hyperglycemia (principal); I10 Essential (primary) hypertension; E78.00 Pure hypercholesterolemia, unspecified; I48.0 Paroxysmal atrial fibrillation; I25.10 Atherosclerotic heart disease of native coronary artery without angina pectoris; D50.9 Iron deficiency anemia, unspecified; K21.9 Gastro-esophageal reflux disease without esophagitis; F41.1 Generalized anxiety disorder; Z13.9 Encounter for screening, unspecified

== ENCOUNTER → 2025-09-08 11:35 | Outpatient (BNVA) | payer MEDICARE, OTHER, SELFPAY | PROVIDERS: PCP Internal Medicine; Visit Provider Internal Medicine | DX: E11.65 Type 2 diabetes mellitus with hyperglycemia (principal); I10 Essential (primary) hypertension; D64.9 Anemia, unspecified; E78.00 Pure hypercholesterolemia, unspecified; I48.0 Paroxysmal atrial fibrillation; I25.10 Atherosclerotic heart disease of native coronary artery without angina pectoris; D50.9 Iron deficiency anemia, unspecified; K21.9 Gastro-esophageal reflux disease without esophagitis; F41.1 Generalized anxiety disorder; Z79.899 Other long term (current) drug therapy | CPT/HCPCS: 83036; 96127; 99212 ==

== ENCOUNTER 2025-11-16 08:37 | Outpatient (REF) | payer MEDICARE, OTHER, SELFPAY ==
--- OUTSIDE RECORDS SUMMARY | 2025-11-16 08:55 | XMS_ITS | Patient Health Record ---
Author Organization [facility] Address [address] [place] [address] Care Team Providers Care [employer] Manager Name Role Phone Yaw Le Unavailable [phone] Reason For Referral No Information Plan Of Treatment No Information
[2025-11-16 10:44] LABS: MANUAL DIFF FLAG NO
[2025-11-16 10:53] LABS: Hematocrit 40.7 % (42.0-52.0); Hemoglobin 13.3 g/dl (14.0-18.0); Imm Gran Abs Auto 0.01 X10*3/uL (0.00-0.03); Imm Gran Pct Auto 0.2 % (0.0-0.4); Lymphocytes Absolute Auto 1.3 X10*3/uL (1.2-4.9); Mean Corpuscular HGB Conc 32.7 g/dl (31.0-36.0); Mean Corpuscular Hemoglobin 29.7 pg (27.0-33.0); Mean Corpuscular Volume 90.8 fL (80.0-98.0); NRBC Abs Auto 0.000 X10*3/uL (0.0-0.012); NRBC Pct Auto 0.0 /100WBC (0.0-0.2); Platelet Count 199 X10*3/uL (160-400); Red Blood Count 4.48 X10*6/uL (4.60-5.80); Reticulocytes Absolute 0.061 X10*6/uL (0.026-0.095); White Blood Count 5.1 X10*3/uL (4.8-10.8)
[2025-11-16 11:08] LABS: Alanine Aminotransferase 18 U/L (0-40); Albumin Level 4.5 g/dL (3.5-5.0); Alkaline Phosphatase 61 U/L (39-117); Anion Gap 15 (12-20); Aspartate Amino Transferase 24 U/L (5-37); Blood Urea Nitrogen 28 mg/dL (9-16); Calcium 9.1 mg/dL (8.4-10.2); Carbon Dioxide 25 mmol/L (22-29); Chloride 102 mmol/L (96-108); Estimated Glomerular Filt Rate 56; Iron 79 mcg/dL (45-160); Percent Iron Saturation 25 % (15-50); Potassium 4.5 mmol/L (3.3-5.1); Sodium 137 mmol/L (135-145); Total Iron Binding Capacity 321 mcg/dL (228-428); Total Protein 7.1 g/dL (6.5-8.0); Unsaturated Iron Binding 242 ug/dL
[2025-11-16 11:24] LABS: Ferritin 24 ng/mL (20-250)
[2025-11-16 12:01] LABS: Folate 14.4 ng/mL (> or = 4.0); Vitamin B12 378 pg/mL (200-900)
== END 2025-11-16 08:38 ==
LOC: HO.HMGCLDS 08:37
PROVIDERS: PCP Internal Medicine; Visit Provider Internal Medicine
DX: Z13.1 Encounter for screening for diabetes mellitus (principal); D50.9 Iron deficiency anemia, unspecified
CPT/HCPCS: 36415; 80053; 82607; 82728; 82746; 83036; 83540; 85025; 85045